=== PATIENT | male | born 1965 | race Caucasian/White ===

== ENCOUNTER 2022-11-25 09:44 | Day surgery (SDC) | payer MEDICARE, MEDICAID, SELFPAY ==
[2022-11-25 11:37] VITALS: BP 154/93; PULSE 58; RESP 16; TEMP 36.6; O2SAT 98; BMI 24.3
--- NOTE | 2022-11-25 11:51 | P.CONAN_ITS ---
[facility] Past Medical History Medical History HLD (hyperlipidemia) HTN (hypertension) Knee ligamentous laxity Macular degeneration Surgical History Surgical History History of tonsillectomy History of Problems with Anesthesia: No Social History Social History Patient Tobacco Use Status: Former Tobacco user Quit Date: 3 yrs ago Use of substances other than those prescribed or required for medical reasons: No Are you DNR?: No Advance Directives: No Advance Directives Information Provided: Yes Meds Allergies Allergy/AdvReac Type Severity Reaction Status Date / Time Penicillins Allergy Unknown Unknown Verified 11/25/22 11:32 Active Medications: Current Medications Sodium Biphosphate/Sodium Phosphate (Sodium Phosphate,Calvert-Dibasic 133 Ml Enema) 133 ml NM ONCE PRN PRN Reason: Poor Colonoscopy Prep Results Home Medications Medication Instructions Recorded Confirmed Last Taken Type atenolol 50 mg tablet 50 mg PO DAILY 11/21/22 11/21/22 11/25/22 08:00 History rosuvastatin 20 mg tablet 20 mg PO DAILY 11/21/22 11/21/22 Unknown History loratadine 10 mg tablet 10 mg PO DAILY 11/22/22 11/22/22 Unknown History Exam Exam Date and Time: November 25, 2022 1151 Height,Weight and Vital Signs: Height 5 ft 7 in Weight 70.307 kg Last Vital Signs Temp 97.8 F 11/25/22 11:37 Pulse 58 11/25/22 11:37 Resp 16 11/25/22 11:37 BP 154/93 H 11/25/22 11:37 Pulse Ox 98 11/25/22 11:37 O2 Del Method Room Air 11/25/22 11:37 Airway Mallampati Class: II (edentulous) TM Dist: >3cm Neck ROM: Full Loose/Missing/Broken Teeth: Yes, Upper and Lower Heart: RRR Lungs: CTA Assessment and Plan Assessment Anesthesia Assessment: Anesthesia Plan Discussed and Chart Reviewed Final Anesthetic Review History of Problems with Anesthesia: No NPO: Yes ASA Class: II Final Preanesthetic Review: Meds/Allgs Chart Reviewed, Consent Obtained/Reviewed and Anes Risks/Benef Reviewed Patient Risk: Low Procedure Risk: Low Anesthetic Plan Anesthetic Plan: MAC: Disposition: Standard PACU
[2022-11-25] MEDS: Lactated Ringers 1,000 ML 50 ML IVCONT (11:53)
[2022-11-25 13:09] VITALS: BP 93/55; PULSE 55; RESP 12; TEMP 36.1; O2SAT 98
--- NOTE | 2022-11-25 13:09 | PM.OP ---
Brief Operative Note Date of Service: 11/25/22 Pre-op diagnosis: Screening Post-op diagnosis: other (Colon polyps) Procedure: Colonoscopy to the cecum with cold snare polypectomy in proximal ascending colon, and hot snare polypectomy x 3. Surgeon: Kain Krishna Anesthesia: MAC Was an [employer] used for this Procedure?: No Estimated blood loss (mL): 2.0 Pathology: other (A. Ascending colon polyps B. Polyp at 60cm C. Polyp at 30cm) Condition: stable Disposition: PACU
[2022-11-25 13:24] VITALS: BP 124/87; PULSE 54; RESP 18; TEMP 36.7; O2SAT 99
--- NOTE | 2022-11-26 01:08 | OP_ITS ---
DATE OF SERVICE: 11/25/2022 SURGEON: Kain Krishna MD INDICATIONS: The patient presents for evaluation of colorectal cancer screening and occasional hematochezia. Full consent has been obtained from him for this, including risks of bleeding and perforation. PREOPERATIVE DIAGNOSIS: POSTOPERATIVE DIAGNOSIS: PROCEDURE PERFORMED: Colonoscopy to the cecum with cold snare polypectomy x 1 and hot snare polypectomy x 3. ESTIMATED BLOOD LOSS: COMPLICATIONS: ANESTHESIA: Preop medication used, monitored anesthesia care. ASSISTANTS: SPECIMENS: PREOPERATIVE DIAGNOSES: Colorectal cancer screening and occasional hematochezia. POSTOPERATIVE DIAGNOSES: Colorectal cancer screening and occasional hematochezia, colon polyps, diverticulosis, and internal hemorrhoids. DESCRIPTION OF PROCEDURE: The patient was placed in the left lateral decubitus position. The digital rectal exam revealed no abnormalities. The Olympus video pediatric colonoscope was entered into the rectum and advanced easily to the cecum. Once in the cecum, I did identify normal-appearing cecal pouch, appendiceal orifice, and a normal-appearing ileocecal valve. The entire cecum and ileocecal valve appeared normal. There was transillumination of light deep in the right lower quadrant. The scope was then slowly withdrawn assessing all mucosal surfaces carefully. Preparation was excellent. In the ascending colon, was an approximately 5 mm polyp, which was removed by cold snare polypectomy and recovered by suction. The polypectomy site appeared clean, without any sign of residual polyp nor significant bleeding. Just distal to this was approximately 10 mm polyp, which was removed by hot snare polypectomy and recovered by suction. This was placed in the same container. The polypectomy site appeared clean, without any sign of residual polyp nor bleeding. At 60 cm, there was an approximately 8 mm polyp, which was removed by hot snare polypectomy and recovered by suction. The polypectomy site appeared clean, without any sign of residual polyp nor bleeding. At 30 cm, there was an approximately 10 mm polyp, which was removed by hot snare polypectomy and recovered by suction. The polypectomy site appeared clean, without any sign of residual polyp nor bleeding. I did not visualize any other polyps, colitis, nor angiodysplasia. There was a mild amount of sigmoid diverticulosis. In the rectum, scope was retroflexed visualizing small internal hemorrhoids, but no other pathology. The rectal mucosa appeared normal. The scope was straightened and withdrawn the patient. He tolerated the procedure well and was returned to the recovery area in stable condition. IMPRESSION: 1. Colon polyps. 2. Diverticulosis. 3. Internal hemorrhoids. PLAN: The results of the pathology will be checked. Given their gross appearance today, I would recommend a repeat colonoscopy in 5 years for further screening purposes. He was advised not to use any aspirin and NSAIDs for 1 week. He will otherwise see me on a p.r.n. basis. MD YESICA Meza/KYREE / [phone] MTDAmina
== END 2022-11-25 14:00 | disposition home or self-care (01) ==
PROVIDERS: PCP Internal Medicine; Visit Provider Internal Medicine
PROC: 0DJD8ZZ Inspection of Lower Intestinal Tract, Via Natural or Artificial Opening Endoscopic (ICD-10-PCS; CPT 45378; principal; 2022-11-25 11:30)
DX: Z12.11 Encounter for screening for malignant neoplasm of colon (principal); D12.2 Benign neoplasm of ascending colon; D12.4 Benign neoplasm of descending colon; D12.5 Benign neoplasm of sigmoid colon; K92.1 Melena; K57.30 Diverticulosis of large intestine without perforation or abscess without bleeding; K64.8 Other hemorrhoids; I10 Essential (primary) hypertension; E78.5 Hyperlipidemia, unspecified; Z79.899 Other long term (current) drug therapy; Z88.0 Allergy status to penicillin
CPT/HCPCS: 45385; 88305

== ENCOUNTER 2023-01-07 11:24 | Outpatient (REF) | payer MEDICARE, MEDICAID, SELFPAY ==
[2023-01-07 15:16] LABS: TSH reflex Free T4 1.23 uIU/mL (0.32-4.0)
== END 2023-01-07 11:25 | disposition home or self-care (01) ==
LOC: HO.CHCLDS 11:24
PROVIDERS: Visit Provider Internal Medicine
DX: Z00.00 Encounter for general adult medical examination without abnormal findings (principal); E78.00 Pure hypercholesterolemia, unspecified
CPT/HCPCS: 36415; 84443

== ENCOUNTER 2023-03-06 10:04 | Outpatient (REF) | payer MEDICARE, MEDICAID, SELFPAY ==
[2023-03-06 14:20] LABS: MANUAL DIFF FLAG NO
[2023-03-06 14:31] LABS: Basophils Absolute Auto 0.1 X10*3/uL (0.0-0.2); Eosinophils Absolute Auto 0.3 X10*3/uL (0.0-0.4); Eosinophils Percent Auto 7.1 % (0-4); Hematocrit 40.1 % (42.0-52.0); Hemoglobin 13.5 g/dl (14.0-18.0); Imm Gran Abs Auto 0.02 X10*3/uL (0.00-0.03); Imm Gran Pct Auto 0.4 % (0.0-0.4); Lymphocytes Absolute Auto 1.7 X10*3/uL (1.2-4.9); Lymphocytes Percent Auto 34.2 % (20-40); Mean Corpuscular HGB Conc 33.7 g/dl (31.0-36.0); Mean Corpuscular Hemoglobin 30.1 pg (27.0-33.0); Mean Corpuscular Volume 89.3 fL (80.0-98.0); Mean Platelet Volume 9.7 fL (9.4-12.4); Monocytes Absolute Auto 0.5 X10*3/uL (0.1-1.2); Monocytes Percent Auto 9.8 % (2-11); Neutrophils Absolute Auto 2.3 x10*3/uL (2.0-8.3); Neutrophils Percent Auto 47.5 % (45-73); Platelet Count 289 X10*3/uL (160-400); Red Blood Count 4.49 X10*6/uL (4.60-5.80); Red Cell Distribution Width 12.8 % (11.0-16.0); White Blood Count 4.8 X10*3/uL (4.8-10.8)
[2023-03-06 15:03] LABS: Alanine Aminotransferase 23 U/L (0-40); Albumin Level 4.3 g/dL (3.5-5.0); Alkaline Phosphatase 72 U/L (39-117); Anion Gap 12 (12-20); Aspartate Amino Transferase 27 U/L (5-37); Bilirubin Direct 0.2 mg/dL (0.0-0.5); Bilirubin Total 0.7 mg/dL (0.0-1.0); Blood Urea Nitrogen 18 mg/dL (9-16); Calcium 9.5 mg/dL (8.4-10.2); Carbon Dioxide 27 mmol/L (22-29); Chloride 105 mmol/L (96-108); Cholesterol 276 mg/dL (<200); Estimated Glomerular Filt Rate > 60; Glucose Fasting 86 mg/dL (60-99); HDL Cholesterol 59 mg/dL (>40); LDL Cholesterol Calculated 197 mg/dL (<100); Potassium 3.6 mmol/L (3.3-5.1); Sodium 140 mmol/L (135-145); Total Protein 7.3 g/dL (6.5-8.0); Triglycerides 101 mg/dL (<150)
== END 2023-03-06 10:05 | disposition home or self-care (01) ==
LOC: HO.CHCLDS 10:04
PROVIDERS: Visit Provider Internal Medicine
DX: Z00.00 Encounter for general adult medical examination without abnormal findings (principal); E78.00 Pure hypercholesterolemia, unspecified; I10 Essential (primary) hypertension
CPT/HCPCS: 36415; 80048; 80061; 80076; 85025

== ENCOUNTER 2023-07-29 10:43 | Outpatient (REF) | payer OTHER, SELFPAY ==
[2023-07-29 14:43] LABS: Cholesterol 154 mg/dL (<200); HDL Cholesterol 58 mg/dL (>40); LDL Cholesterol Calculated 84 mg/dL (<100); Triglycerides 60 mg/dL (<150)
== END 2023-07-29 10:44 | disposition home or self-care (01) ==
LOC: HO.CHCLDS 10:43
PROVIDERS: Visit Provider Internal Medicine
DX: E78.00 Pure hypercholesterolemia, unspecified (principal)
CPT/HCPCS: 36415; 80061

== ENCOUNTER 2023-08-12 14:26 | Outpatient (AMB) | payer MEDICARE, MEDICAID, SELFPAY ==
--- NOTE | 2023-08-12 14:30 | MHC.OFFVIS ---
Intake Visit Reasons: [employer]/PCP referral for raynauds Intake Note: New patient presents for raynauds, [facility] questioning claudication. Patient states he gets cramping in his calfs at night. He gets cold feet and toes that turn white sometimes. When patient go upstairs his legs feel heavy, unable to lift legs. Trips a lot due to being unable to lift his legs up high up. Accompanied by: Self / Same As Patient Allergies Penicillins Allergy (Unknown, Verified 08/12/23 14:35) Unknown HPI HPI [employer]/PCP referral for raynauds: Details: Very complex 58-year-old gentleman presents for evaluation regarding lower extremity pain. He has difficulty ambulating significant distances. Reports that his leg cramping is getting progressively worse. He notes that he does have back pain issues that radiates down to his hip and posterior aspect of his gluts. Also of note he requires the use of a cane for balance. He notes that his knees are an issue for him and his legs do cramp regularly. It is not associated with ambulation he cramps at random times including at night. He has difficulty walking more than a block. He now presents to us for vascular evaluation. [facility] Medical History Knee ligamentous laxity Macular degeneration HLD (hyperlipidemia) HTN (hypertension) Surgical History History of tonsillectomy Social History Patient Tobacco Use Status: Former Tobacco user Quit Date: 3 yrs ago Review of Systems Const All systems reviewed & are unremarkable except as noted in HPI and below Reports no additional complaints ENT Reports Normal hearing present Card Denies chest pain, Denies chest pain at rest, Denies chest pain with activity and Denies pedal edema Resp Denies cough GI Denies abdominal pain Musc Denies abnormal gait, Denies muscle cramps and Denies radiating pain into limb Skin/Breast Denies skin ulcer and Denies wounds Neuro Reports Normal hearing present and Denies abnormal gait Psych Reports no additional complaints Physical Exam Const General: cooperative, healthy appearing and comfortable Orientation/consciousness: oriented to person, oriented to place and oriented to time HEENT Head: Yes normal to inspection Neck Neck: Yes normal visual inspection Carotids: no bruits Chest Chest palpation & inspection: normal inspection of the chest Resp Effort & Inspection: normal respiratory effort and able to speak in complete sentences Auscultation: clear to auscultation bilaterally, no crackles, no rales, no rhonchi and no wheezes Cardio Other: Bilateral DP signals Rate: regular rate Rhythm: regular rhythm Heart sounds: S1 normal heart sound present and S2 normal heart sound present Bruits: no carotid bruits GI Inspection: Yes normal to inspection Skin Wounds: no wounds Hair: normal Neuro General: oriented to person, oriented to place and oriented to time Cranial nerves: Yes CN's II-XII intact bilaterally and Yes Normal hearing present Cognition (Neuro): normal cognition Motor exam (neuro): 5/5 motor strength present throughout Extrem Other: venous exam: No significant superficial varicosities or spider telangiectasias, minimal edema General: No clubbing, No cyanosis and No edema Psych Appearance: grossly normal Mental Status: mental status grossly normal Speech and movement: Normal speech and movement present Assessment & Plan Assessment & Plan (1) PAD (peripheral artery disease): Code(s): I73.9 - Peripheral vascular disease, unspecified Category: Medical Plan: In short patient has lower extremity pain. Unclear etiology of this. I do suspect he does have a significant neurogenic component to this. The lower extremity pulses were slightly diminished. I have taken the liberty of ordering noninvasive arterial testing to rule that out. Should this prove to be negative he may benefit from a pain management or for back evaluation. I do suspect there is a significant neurogenic component of this overall. He will follow up with us after testing. Thank you for allowing us to assist in his care. If there are any questions or concerns please do not hesitate to contact us Orders: Orders US arterial duplex LE BI 1 Week I73.9 - Peripheral vascular disease, unspecified Coding Level of Care Code Est Pt Level 4 (49443) Diagnoses PAD (peripheral artery disease) I73.9
== END 2023-08-12 14:53 | disposition home or self-care (01) ==
PROVIDERS: PCP Internal Medicine; Visit Provider Surgery Vascular Surgery
DX: I73.9 Peripheral vascular disease, unspecified (principal)
CPT/HCPCS: 99213

== ENCOUNTER → 2023-08-12 14:26 | Outpatient (BNVA) | payer OTHER, MEDICAID, SELFPAY | PROVIDERS: PCP Internal Medicine; Visit Provider Surgery Vascular Surgery | DX: I73.9 Peripheral vascular disease, unspecified (principal) | CPT/HCPCS: 99212 ==

== ENCOUNTER 2023-08-21 14:25 | Outpatient (REF) | payer OTHER, SELFPAY ==
--- NOTE | ~2023-08-21 | US_ITS ---
EXAMINATION: US arterial duplex BI w/ NII CLINICAL INFORMATION: Peripheral vascular disease, unspecified COMPARISON: None TECHNIQUE: Ankle pulse volume recordings, ankle pressure measurements and ankle brachial indices were obtained of the lower extremity arterial system bilaterally in addition to duplex Doppler techniques with wave form analysis and measurement of velocities in the common femoral, profunda femoral, superficial femoral, popliteal, tibial and peroneal arteries. The study was performed only at rest. FINDINGS: RIGHT LE. THE RIGHT ANKLE-BRACHIAL INDEX IS: 1.26 2. SEGMENTAL PRESSURES (mmHg): Ankle: PT 134, DP 110 3. PVR WAVEFORMS: Ankle: Abnormal 4. DIRECT DUPLEX: Common femoral artery: 78 cm/s, Multiphasic Profunda femoris artery: 43 cm/s, Multiphasic Superficial femoral artery (proximal): 79 cm/s, Multiphasic Superficial femoral artery (mid): 21 cm/s, Multiphasic Superficial femoral artery (distal): 65 cm/s, Multiphasic Proximal Popliteal artery: 51 cm/s, Multiphasic Distal popliteal artery: 63 cm/s, Multiphasic Mid posterior tibial artery: 99 cm/s, Multiphasic Peroneal artery: 59 cm/s, Multiphasic Anterior tibial artery: 78 cm/sec, multiphasic Dorsalis pedis artery: 20 cm/sec, triphasic LEFT LE. THE LEFT ANKLE-BRACHIAL INDEX IS: 1.21 2. SEGMENTAL PRESSURES: Ankle: PT 128, DP 122 3. PVR WAVEFORMS: Ankle: Normal 4. DIRECT DUPLEX: Common femoral artery: 83 cm/s, Multiphasic Profunda femoris artery: 55 cm/s, Multiphasic Superficial femoral artery (proximal): 61 cm/s, Multiphasic Superficial femoral artery (mid): 85 cm/s, Multiphasic Superficial femoral artery (distal): 63 cm/s, Multiphasic Distal popliteal artery: 25 cm/s, Multiphasic Mid posterior tibial artery: 83 cm/s, Multiphasic Peroneal artery: 56 cm/s, Multiphasic Anterior tibial artery: 44 cm/sec, multiphasic Dorsalis pedis artery: 50 cm/sec, monophasic US/US arterial duplex BI w/ NII IMPRESSION: There is no evidence of any hemodynamically significant lower extremity arterial disease by pressure, waveform or duplex Doppler criteria at rest.
== END 2023-08-21 14:26 | disposition home or self-care (01) ==
LOC: HO.US 14:25
PROVIDERS: PCP Internal Medicine; Visit Provider Surgery Vascular Surgery
DX: I73.9 Peripheral vascular disease, unspecified (principal)
CPT/HCPCS: 93922; 93925

== ENCOUNTER 2023-10-22 14:10 | Outpatient (AMB) | payer OTHER, SELFPAY ==
--- NOTE | 2023-10-22 14:14 | A.OFFVIS_ITS ---
Intake Visit Reasons: f/u s/p ART US 08/21/23 Intake Note: Patient presents for arterial follow up performed on 08/21/23. Patient has pain in both legs. Gets occasional cramping , worse in the right calf. Uses a cane to ambulate and also uses a wheelchair at home. Allergies Penicillins Allergy (Unknown, Verified 10/22/23 14:19) Unknown HPI HPI f/u s/p ART US 08/21/23: Details: Very pleasant 58-year-old gentleman presents for follow-up regarding his lower extremities. He has had difficulty ambulating distances. 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 Has required the use a cane to walk and he has an abnormal gait. Has persistent lower extremity pain as well. He has difficulty walking more than a block. Now presents for evaluation with noninvasive arterial testing. [facility] Medical History Knee ligamentous laxity Macular degeneration HLD (hyperlipidemia) HTN (hypertension) Surgical History History of tonsillectomy Social History Patient Tobacco Use Status: Former Tobacco user Review of Systems Const All systems reviewed & are unremarkable except as noted in HPI and below Reports no additional complaints ENT Reports Normal hearing present Card Denies chest pain, Denies chest pain at rest, Denies chest pain with activity and Denies pedal edema Resp Denies cough GI Denies abdominal pain Musc Denies abnormal gait, Denies muscle cramps and Denies radiating pain into limb Skin/Breast Denies skin ulcer and Denies wounds Neuro Reports Normal hearing present and Denies abnormal gait Psych Reports no additional complaints Physical Exam Const General: cooperative, healthy appearing and comfortable Orientation/consciousness: oriented to person, oriented to place and oriented to time HEENT Head: Yes normal to inspection Neck Neck: Yes normal visual inspection Carotids: no bruits Chest Chest palpation & inspection: normal inspection of the chest Resp Effort & Inspection: normal respiratory effort and able to speak in complete sentences Auscultation: clear to auscultation bilaterally, no crackles, no rales, no rhonchi and no wheezes Cardio Other: Palpable pulses bilaterally. Rate: regular rate Rhythm: regular rhythm Heart sounds: S1 normal heart sound present and S2 normal heart sound present Bruits: no carotid bruits Peripheral pulses: Peripheral pulses 2+ throughout GI Inspection: Yes normal to inspection Skin Wounds: no wounds Hair: normal Neuro General: oriented to person, oriented to place and oriented to time Cranial nerves: Yes CN's II-XII intact bilaterally and Yes Normal hearing present Cognition (Neuro): normal cognition Motor exam (neuro): 5/5 motor strength present throughout Extrem Other: Diminished musculature of the lower extremities. General: No clubbing, No cyanosis and No edema Psych Appearance: grossly normal Mental Status: mental status grossly normal Speech and movement: Normal speech and movement present Results Reviewed Results Reviewed: Noninvasive arterial testing dated 08/21/2023 demonstrates NII on the right of 1.26 and on the left of 1.21 written report and images were reviewed Assessment & Plan Assessment & Plan (1) PAD (peripheral artery disease): Code(s): I73.9 - Peripheral vascular disease, unspecified Category: Medical Plan: In short patient is stable from a vascular standpoint. He does not have any of the risk factors for peripheral vascular disease. Noninvasive testing have spent within normal limits. 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 Should he have persistent pain may benefit from a pain management evaluation. He will follow up with us on an as-needed basis. Thank you for allowing us to assist in his care. If there are any questions or concerns please do not hesitate to contact us. Coding Level of Care Code Est Pt Level 4 (69365) Diagnoses PAD (peripheral artery disease) I73.9
== END 2023-10-22 14:29 | disposition home or self-care (01) ==
PROVIDERS: PCP Internal Medicine; Visit Provider Surgery Vascular Surgery
DX: I73.9 Peripheral vascular disease, unspecified (principal)
CPT/HCPCS: 99214

== ENCOUNTER → 2023-10-22 14:10 | Outpatient (BNVA) | payer OTHER, SELFPAY | PROVIDERS: PCP Internal Medicine; Visit Provider Surgery Vascular Surgery | DX: I73.9 Peripheral vascular disease, unspecified (principal) | CPT/HCPCS: 99212 ==

== ENCOUNTER 2024-09-07 09:51 | Outpatient (REF) | payer OTHER, SELFPAY ==
--- OUTSIDE RECORDS SUMMARY | 2024-09-07 11:06 | XMS_ITS | Clinical Summary ---
Author Organization [employer] Address [address] [facility] [address] [place] [address] Care Team Providers Care Traffic Rate Analyst Name Role Phone Kirstin Winston MD Primary Care Provider [phone] Allergies Active Allergy Reactions Criticality Noted Date Comments Penicillin G Other 12/19/2022 Nausea Medications loratadine (Claritin) 10 MG tabletIndication s:Seasonal allergies TAKE 1 TABLET BY MOUTH EVERY DAY 90 tablet 11/14/19 23 Active rosuvastatin (Crestor) 20 MG tabletIndication s:Hypercholester olemia TAKE 1 TABLET BY MOUTH EVERYDAY AT BEDTIME 90 tablet 07/30/19 24 Active amLODIPine (Norvasc) 5 MG tabletIndication s:Essential hypertension TAKE 1 TABLET BY MOUTH EVERY DAY IN THE MORNING 90 tablet 3 12/10/19 24 Active atenolol (Tenormin) 50 MG tablet TAKE 1 TABLET BY MOUTH EVERY DAY 90 tablet 1 08/18/19 25 Active atenolol (Tenormin) 50 MG tablet TAKE 1 TABLET BY MOUTH EVERY DAY 90 tablet 1 02/20/20 24 025 Discontinued Active Problems Problem Noted Date Diagnosed Date Hypercholesterolemia 03/20/2023 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 Age-related macular degeneration 07/16/2019 Hemorrhage of rectum and anus 12/17/2008 Essential hypertension 12/18/2007 Encounters Date Type Department Care Team Description 08/26/2024 2:45 PM EDT Office Visit [facility] [address] [place] [address] Kirstin Winston MD Tremor (Primary Dx); Other male erectile dysfunction; Abnormal gait; Essential hypertension 08/26/2024 Travel 08/23/2024 Telephone [facility] [address] [place] [address] Kirstin Winston MD Nurse Triage 08/16/2024 Refill [facility] [address] [place] [address] Kirstin Winston MD from Last 3 Months Family History Medical History Relation Name Comments parkinson disease Mother Relation Name Status Comments Mother Social History Tobacco Use Types Packs/Day Years Used Date Smoking Tobacco: Former Cigarettes Q uit: 2019 Smokeless Tobacco: Never Tobacco Cessation:Counseling Given: Not Answered Depression Answer Date Recorded Patient Health Questionnaire-9 Score 5 10/06/2023 Patient Health Questionnaire-9 Score 5 10/06/2023 Last PHQ-9: Questionnaire Data Not on file 0 10/06/2023 Housing Stability Answer Date Recorded What is your housing situation today? I have rosa ghotra 01/24/[address] you li ve. Do you have problems with any of the following? None of the above 01/24/2023 Food Insecurity Answer Date Recorded Within the past 12 months, y ou worried that your food would run out before you got money to buy more: Often true 01/27/2023 Within the past 12 months,th e food you bought just didn't last and you didn't have enough money to get more: Often true Transportation Answer Date Recorded In the past 12 months, has l ack of transportation kept you from medical appts, meetings, work or from getting things needed for daily living? No 01/24/2023 Utilities Answer Date Recorded In the past 12 months, has t he electric, gas, oil or water company threatened to shut off services in your home? No 01/24/2023 Depression Answer Date Recorded Patient Health Questionnaire-2 Score 0 10/06/2023 Sex and Gender Information Value Date Recorded Sex Assigned at Male 02/04/2022 10:22 AM EDT Legal Sex Male 10:22 AM EDT Gender Identity Male 02/04/2022 10:22 AM EDT Sexual Orientation Straight 02/04/2022 10 :22 AM EDT Last Filed Vital Signs Vital Sign Reading Time Taken Comments Blood Pressure 170/86 08/26/2024 2:53 PM EDT Pulse 66 08/26/2024 2:53 PM EDT Temperature 36.8 ??C (98.2 ??F) 08/26/2024 2:53 PM ED T Respiratory Rate 20 08/26/2024 2:53 PM EDT Oxygen Saturation 98% 08/26/2024 2:53 PM EDT Inhaled Oxygen Concentration - - Weight 65.8 kg (145 lb) 08/26/2024 2:53 PM EDT Height 165.4 cm (5' 5.13 ) 08/26/2024 2:53 PM ED T Body Mass Index 24.03 08/26/2024 2:53 PM EDT Plan of Treatment Upcoming Encounters Date Type Department Care Team (Late st Contact Info) Description 10/07/2024 2:00 PM EDT Clinical Support [facility] [address] [place], [place] [id number] 11/08/2024 2:30 PM EDT Office Visit [facility] [address] [place], [place] [phone] Tarka, Kera, OD [address] [place], [place] [phone] Health Maintenance Due Date Last Done Comments CT Colonography 1967 FIT DNA/Cologuard 1967 FIT 1967 FOBT 1967 Sigmoidoscopy 1967 Disability Screening 1967 Alcohol/Substance Use Screening 1979 Zoster Vaccines (1 of 2) 07/02/2017 COVID-19 Vaccine (1 - 2023-2 5 season) 2023 SDOH Screening 01/28/2024 01/27/2023 Depression Screening 10/05/2024 10/06/2023, 10/06/2023 Hepatitis B Vaccines (1 of 3 - 19+ 3-dose series) 10/05/2024 Postponed from 07/02/1986 (Patient Refused) Tobacco Screening 10/05/2024 10/06/2023 Influenza Vaccine (Season Ended) 2024 Pneumococcal Vaccine: 50+ Years (1 of 1 - PCV) 08/26/2025 Postponed from 07/02/2017 (Patient Refused) Colonoscopy 11/26/2027 11/25/2022 Colorectal Cancer Screening 11/26/2027 Lipid Panel 07/28/2028 07/29/2023, 03/06/2023, 11/23/2021 DTaP/Tdap/Td Vaccines (2 - T d or Tdap) 10/31/2031 10/30/2021 RSV Patients and Patients Aged 60 years or older (1 - 1-dose 75+ series) 07/02/2042 Hepatitis C Screening Discontinued 11/23/2021 HIB Vaccines Aged Out No longer eligi ble based on patient's age to complete this topic HIV Screening Discontinued HPV Vaccines Aged Out No longer eligi ble based on patient's age to complete this topic Hepatitis A Vaccines Aged Out No long er eligible based on patient's age to complete this topic IPV Vaccines Aged Out No longer eligi ble based on patient's age to complete this topic Meningococcal B Vaccine Aged Out No l onger eligible based on patient's age to complete this topic Meningococcal Vaccine Aged Out No fadumo ashley eligible based on patient's age to complete this topic RSV under 20 months Aged Out No longe r eligible based on patient's age to complete this topic Rotavirus Vaccines Aged Out No longer eligible based on patient's age to complete this topic Procedures Procedure Name Priority Date/Time Associated Diagnosis Comments LIPID PANEL, STANDARD Routine 07/29/2023 10:47 AM EDT Hypercholesterolemi a COLONOSCOPY Routine 11/25/2022 ZZZ HISTORICAL HEPATITIS C AB W/REFL TO HCV RNA, QN, PCR Routine 11/23/2021 10:55 AM EDT from Last 3 Months or Most Recently Relevant to Health Maintenance Results * Lipid Panel, Standard (07/29/2023 10:47 AM EDT) Triglycerides 60 <150 mg/dL [facility] Comment:Desirable Triglyceri de: less than 150 mg/dLBorderline High Triglyceride 150-199 mg/dLHigh Triglyceride: 200-499 mg/dLVery High Triglyceride: greater than or equal to 5OO mg/dL Cholesterol 154 <200 mg/dL [facility] Comment:Desirable Cholestero l: less than 200 mg/dLBorderline High Cholesterol: 200-239 mg/dLHigh Cholesterol: greater than 239 mg/dL LDL Cholesterol Calculated 84 <100 mg/dL [facility] Comment:Desirable LDL: less than 100 mg/dLNear Optimal/Above Optimal LDL: 110- 129 mg/dLBorderline High LDL: 130-159 mg/dLHigh LDL: 160-189 mg/dLVery High LDL: greater than or equal to 190 mg/dL HDL Cholesterol 58 >40 mg/dL [facility] Comment:Desirable HDL: great er than 40 mg/dL Note: This HDL assay may give artificially low results in patients with liver disease. Blood Venous blood specimen / Unknown 07/29/2023 10:47 AM EDT 07/29/2023 2:17 PM EDT us Kirstin Winston MD LAB BLOOD ORDERABLES Final Result Performing Organization Address City/[facility]/ZIP Co de Phone Number [facility] [address] [place] [phone] * HEPATITIS C AB W/REFL TO HCV RNA, QN, PCR (11/23/2021 10:55 AM EDT) HEPATITIS C ANTIBODY NON-REACT ANGELITA NON-REACT ANGELITA [facility] INDEX 0.10 <1.00 [facility] Comment: ?? HCV antibody was non-reactive. There is no laboratory ?? evidence of HCV infection. ?? In most cases, no further action is required. However, if recent HCV exposure is suspected, a test for HCV RNA (test code 61258) is suggested. ?? For additional information please refer to http://education.[facility].LABOMAR/faq/WAY49c4 (This link is being provided for informational/ educational purposes only.) ?? 11/23/2021 10:5 5 AM EDT us Kirstin Winston MD HISTORICAL/NON ORDERABLE LA BS Final Result Performing Organization Address City/[facility]/ZIP Co de Phone Number [facility] [address] from Last 3 Months or Most Recently Relevant to Health Maintenance Insurance [facility] < [address] [id number] Care Teams Traffic Rate Analyst Relationship Specialty Start Date End Date Kirstin Winston MD [address] [place] [id number] PCP - General Internal Medicine 12/18/11
[2024-09-07 15:57] LABS: PSA,Total (Free>4and<10) 1.36 ng/mL (0.00-4.00)
[2024-09-07 16:58] LABS: Alanine Aminotransferase 35 U/L (0-40); Albumin Level 4.6 g/dL (3.5-5.0); Anion Gap 12 (12-20); Aspartate Amino Transferase 39 U/L (5-37); Bilirubin Total 1.1 mg/dL (0.0-1.0); Blood Urea Nitrogen 25 mg/dL (9-16); Calcium 9.5 mg/dL (8.4-10.2); Carbon Dioxide 25 mmol/L (22-29); Chloride 108 mmol/L (96-108); Estimated Glomerular Filt Rate > 60; Glucose Random 93 mg/dL (60-115); Potassium 3.9 mmol/L (3.3-5.1); Sodium 141 mmol/L (135-145); Total Protein 7.2 g/dL (6.5-8.0)
[2024-09-07 17:06] LABS: TSH reflex Free T4 0.76 uIU/mL (0.32-4.0)
[2024-09-07 17:13] LABS: Alkaline Phosphatase 83 U/L (39-117)
[2024-09-08 05:28] LABS: Follicle Stimulating Hormone 58.5 mIU/mL (1.4-12.8); Lutenizing Hormone 22.5 mIU/mL (1.5-9.3)
[2024-09-11 15:33] LABS: Testosterone, Total 304 ng/dL (250-1100)
== END 2024-09-07 09:52 | disposition home or self-care (01) ==
LOC: HO.CHCLDS 09:51
PROVIDERS: Visit Provider Internal Medicine
DX: R25.1 Tremor, unspecified (principal); N52.8 Other male erectile dysfunction; Z12.5 Encounter for screening for malignant neoplasm of prostate
CPT/HCPCS: 36415; 80053; 83001; 83002; 84153; 84403; 84443

== ENCOUNTER 2024-09-28 13:50 | Outpatient (REF) | payer OTHER, SELFPAY ==
[2024-09-28 16:27] LABS: INTERNATIONAL NORM RATIO 0.9 (0.9-1.1); Prothrombin Time 10.2 SEC (10.9-12.4)
[2024-09-28 16:37] LABS: Iron 164 mcg/dL (45-160); Percent Iron Saturation 47 % (15-50); Total Iron Binding Capacity 347 mcg/dL (228-428); Unsaturated Iron Binding 183 ug/dL
[2024-09-28 16:52] LABS: Ferritin 94 ng/mL (20-250)
[2024-09-30 12:18] LABS: IgA 189 mg/dL (47-310); IgG 1112 mg/dL (600-1640); IgM 85 mg/dL (50-300)
[2024-10-02 21:38] LABS: Testosterone, Free 39.9 pg/mL (35.0-155.0); Testosterone, Total 324 ng/dL (250-1100)
== END 2024-09-28 13:51 | disposition home or self-care (01) ==
LOC: HO.HHCL 13:50
PROVIDERS: PCP Internal Medicine; Visit Provider Internal Medicine
DX: N52.8 Other male erectile dysfunction (principal); R74.01 Elevation of levels of liver transaminase levels
CPT/HCPCS: 36415; 82728; 82784; 83540; 84402; 84403; 85610

== ENCOUNTER 2024-10-12 15:13 | Outpatient (AMB) | payer OTHER, SELFPAY ==
[2024-10-12 15:20] VITALS: BP 142/74; PULSE 68; O2SAT 96; BMI 23.9
--- NOTE | 2024-10-12 15:20 | A.OFFVIS_ITS ---
Vital Signs 10/12/24 15:20 Height 5 ft 4.13 in Weight 139 lb 8.842 oz BMI 23.9 BP 142/74 H Blood Pressure Location Rt brachial Position Sitting Pulse 68 Pulse Source Pulse Oximeter Pulse Oximetry (%) 96 Oxygen Delivery Method Room Air Intake Visit Reasons: Hypogonadism Intake Note: New patient externally referred by PCP for Hypogonadism. Pneumatic Tube Repairer Required: No Accompanied by: Self / Same As Patient Allergies Penicillins Allergy (Unknown, Verified 10/12/24 15:22) Unknown Medication List - Last Reconciled 10/12/24 by Kain Duran MD atenolol 50 mg PO DAILY loratadine 10 mg PO DAILY rosuvastatin 20 mg PO DAILY HPI Comments Details: The patient is a 59-year-old male presenting with low testosterone levels and associated symptoms. The patient reports being diagnosed with low testosterone levels approximately a year ago, without prior endocrinology consultation or testosterone therapy initiation. He experiences erectile dysfunction, particularly noting the absence of morning erections, but maintains some erectile function otherwise. He reports urinary incontinence, describing urgency and incomplete voiding. Additionally, he has observed testicular atrophy and decreased ejaculate volume over time. The patient has noted gynecomastia, with soreness in the left nipple but no discharge. He has a history of prostate enlargement, though recent examination did not reveal significant enlargement or hardness. There is a suspicion of Klinefelter syndrome due to elevated LH and FSH levels, with a karyotype test planned for confirmation. The patient has a history of osteoporosis and neurological issues affecting the cerebellum, contributing to his mobility challenges. First diagnosed with Hypogonadism 1 yr ago Not Was started on Testosterone supplementation Not Currently using [testosterone]. Currently not achieving spontaneous am erections, and able to achieve erection when desired. Reports low libido. Decreased facial hair and shaving frequency. notices decrease in size or shape of testicles. Denies penile discharge or scrotal tenderness. Denies any history of mumps orchitis. Denies any head trauma. Denies history of ANDER. Not with no children not conceiving Sense of smell intact. Denies headache or visual changes, +gynecomastia with some tenderness - galactorrhea. Denies orthostatic symptoms, weight loss. Denies change in size of hands or feet. Denies hair loss, weight gain, cold intolerance. No History of DVT or PE: No history of marijuana or opoids or recent methadone use Some urgency on urination Labs: Testosterone level 324 with elevation and LH and FSH PSA CBC PFSH Medical History (Updated 10/12/24 @ 15:23 by Kain Duran MD) Primary testicular hypogonadism Knee ligamentous laxity Macular degeneration HLD (hyperlipidemia) HTN (hypertension) Surgical History (Updated 10/12/24 @ 15:22 by BORA Melton) Hx of colonoscopy with polypectomy History of tonsillectomy Family History (Updated 10/12/24 @ 15:25 by BORA Melton) Mother Parkinsons disease H/O: hysterectomy Social History Alcohol intake: current Patient Tobacco Use Status: Former Tobacco user Physical Exam Const Other: There was the absence of eunichoidal proportions. Examination of the chest reveals minimal amount of breast tissue. Rectal examination reveals a normal smooth prostate. Thyroid gland is normal size weighs about 15 g per there were no thyroid nodules palpated Assessment & Plan Assessment & Plan (1) Primary testicular hypogonadism: Code(s): E29.1 - Testicular hypofunction Category: Medical Plan: 1. Hypogonadism The patient presents with symptoms consistent with hypogonadism, including low testosterone levels, erectile dysfunction, and testicular atrophy. A trial of testosterone replacement therapy is considered, with options including gel application due to the patient's difficulty with injections. Monitoring of testosterone levels and prostate health is advised. Went over side effects of testosterone replacement including but not limited to risk of DVT, prostatic enlargement, unmasking of prostate cancer and polycythemia 2. Possible Klinefelter syndrome Elevated LH and FSH levels suggest primary testicular failure, raising suspicion for Klinefelter syndrome. A karyotype test is planned to confirm the diagnosis. The patient is informed about the potential implications, including infertility and increased risk of diabetes. 3. Prostate enlargement The patient has a history of prostate enlargement, but recent examination shows no significant enlargement or hardness. Monitoring of prostate-specific antigen PSA) levels is recommended, especially if testosterone therapy is initiated. I discussed with the patient the potential diagnosis of hypogonadism and the option of testosterone replacement therapy, emphasizing the benefits and risks, including the potential for improved energy and libido but also the risk of prostate enlargement and blood clots. We also discussed the suspicion of Klinefelter syndrome and the need for a karyotype test to confirm the diagnosis. I explained the implications of Klinefelter syndrome, including infertility and increased risk of diabetes. The patient was informed about the importance of mo nitoring prostate health and bone density, especially if testosterone therapy is initiated. We reviewed the application of testosterone gel and the need for follow-up testing to monitor testosterone levels and PSA. - Apply testosterone gel to upper arms and shoulders daily as instructed. - Monitor for any changes in symptoms, such as increased energy or changes in libido. - Schedule follow-up appointments for repeat testosterone and PSA testing. - . The patient had an opportunity to ask questions regarding treatment plan. The patient expressed understanding and agreement with the above treatment plan. Patient was informed and verbally consented to the use of an ambient scribe for clinic note documentation during this visit. Orders: Orders Testosterone, Free/Total 6 Weeks E29.1 - Testicular hypofunction Hemoglobin 6 Weeks E29.1 - Testicular hypofunction Prostate Specific Antigen 6 Weeks E29.1 - Testicular hypofunction Hematocrit 6 Weeks E29.1 - Testicular hypofunction Chromosome Anal. Blood Genetic 6 Weeks E29.1 - Testicular hypofunction Medications: New testosterone (AndroGel) apply 1 pump amount over max area of EACH upper arm and shoulder 2 pumps topical DAILY 75 grams 3RF Coding Level of Care Code New Pt Level 4 (45289) Diagnoses Primary testicular hypogonadism E29.1
--- OUTSIDE RECORDS SUMMARY | 2024-10-12 15:50 | XMS_ITS | Patient Health Record ---
Author Organization [facility] Address [address] [place] [address] Care Team Providers Care Apparatus Cleaner Name Role Phone Kirstin Winston M.D. Primary Care Provider Un available Krishna Kain Unavailable [phone] Allergies Allergen (clinical drug ingredient) Drug/Non Drug Allergy documented on EMR Reaction Allergy Type Onset Date Status Penicillin Unknown Drug Allergy Active Reason For Referral No Information Medications Medication SIG (Take, Route, Frequency, Duration) Notes Start Date End Date Status Loratadine 10 MG TAKE 1 TABLET BY DENIA TH EVERY DAY Oral for 90 Active Baclofen 5 MG TAKE 1 TABLET BY DENIA TH TWICE A DAY Oral for 90 Active Atenolol 50 MG Oral for 90 Act mia Rosuvastatin Calcium 20 MG Oral for 90 Active Vitamin D3 Active Dulcolax (colon prep) 5 MG take at 3:00 p.m and 7:00p.m. Orally two tablets twice a day for one day for 1 day 09/10/2022 Active MiraLax (colon prep) 17 GM/SCOOP 1 238Gm bottle mixed with Gatorade or Crystal Light Orally begin at 5:00 p.m. the day before the procedure for 1 day 09/10/2022 Active Problems Problem Type SNOMED Code ICD Code Onset Dates Problem Status W/U Status Risk Notes Problem 097109194 Colon cancer screening (Z12.11) Active confirmed Problem 600668941 Blood in stool (K92.1) Active confirmed Problem [id number] Pre-procedural examination (Z01.818) Active confirmed Problem Diverticulosis of colon (877714823) Diverticulosis of colon (K57.30) Active confirmed Plan Of Treatment Future Test Test Name Order Date COLONOSCOPY 09/10/2022 Insurance Providers Payer Name Payer Address Payer Phone Subscriber Number Group Number Insured Name Patient Relationship to Insured Coverage Start Date Coverage End Date MEDICARE OF [place] [address] [place] [id number] [phone] [id number] SHEILA ATKINS Self - patient is the insured MEDICAID OF [facility] [address] [place] [address] [id number] SHEILA ATKINS Self - patient is the insured Medical (General) History Medical History History ICD Code Hypertension Hyperlipidemia Denies [place],DM,CVA,Lung disease,renal dise ase 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 Macular degeneration Surgical History Surgery Date(Month/Year) Tonsils
--- OUTSIDE RECORDS SUMMARY | 2024-10-12 15:50 | XMS_ITS | Clinical Summary ---
Author Organization [employer] Address [address] [facility] [address] [place] [address] Care Team Providers Care Sleeve Baster Name Role Phone Kirstin Winston MD Primary Care Provider [phone] Allergies Active Allergy Reactions Criticality Noted Date Comments Penicillin G Other 12/19/2022 Nausea Medications loratadine (Claritin) 10 MG tabletIndications :Seasonal allergies TAKE 1 TABLET BY MOUTH EVERY DAY 90 tablet 3 Active rosuvastatin (Crestor) 20 MG tabletIndications :Hypercholesterol emia TAKE 1 TABLET BY MOUTH EVERYDAY AT BEDTIME 90 tablet 4 Active amLODIPine (Norvasc) 5 MG tabletIndications :Essential hypertension TAKE 1 TABLET BY MOUTH EVERY DAY IN THE MORNING 90 tablet 3 4 Active atenolol (Tenormin) 50 MG tablet TAKE 1 TABLET BY MOUTH EVERY DAY 90 tablet 1 5 Active Active Problems Problem Noted Date Diagnosed Date Hypercholesterolemia 03/20/2023 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 Age-related macular degeneration 07/16/2019 Hemorrhage of rectum and anus 12/17/2008 Essential hypertension 12/18/2007 Encounters Date Type Department Care Team Description 10/07/2024 2:00 PM EDT Clinical Support [facility] [address] [place] [id number] Celia Rdz RN Essential hypertension [I10] 10/07/2024 Travel 10/04/2024 Results Follow-Up [facility] [address] [place] [phone] Kirstin Winston MD Testosterone, Free (Dialysis) And Total, MS 09/13/2024 Orders Only [facility] [address] [place] [address] Kirstin Winston MD Other male erectile dysfunction (Primary Dx) 09/08/2024 Results Follow-Up [facility] [address] [place] [address] Lorie Chang, JAS TSH W/Reflex to FT4, Comprehensive Metabolic Panel, FSH, Additional followed-up results: 2 09/08/2024 Orders Only [facility] [address] [place] [address] Kirstin Winston MD Transaminitis (Primary Dx); Testicular atrophy; Primary hypogonadism in male 08/26/2024 2:45 PM EDT Office Visit [facility] [address] [place] [address] Kirstin Winston MD Tremor (Primary Dx); Other male erectile dysfunction; Abnormal gait; Essential hypertension 08/26/2024 Travel 08/23/2024 Telephone [facility] [address] [place] [address] Kirstin Winston MD Nurse Triage 08/16/2024 Refill [facility] [address] [place] [address] Kirstin Winston MD from Last 3 Months [...] the past 12 months, has t he [employer] gas, oil or water company threatened to [...] Sign Reading Time Taken Comments Blood Pressure 150/84 10/07/2024 4:30 PM EDT Pulse 72 10/07/2024 4:29 PM EDT Temperature 36.8 C (98.2 F) 08/26/2024 2:53 PM EDT Respiratory Rate 20 08/26/2024 2:53 PM EDT Oxygen Saturation 98% 08/26/2024 2:53 PM EDT Inhaled Oxygen Concentration - - Weight 65.8 kg (145 lb) 08/26/2024 2:53 PM EDT Height 165.4 cm (5' 5.13 ) 08/26/2024 2:53 PM ED T Body Mass Index 24.03 08/26/2024 2:53 PM EDT Plan of Treatment Upcoming Encounters Date Type Department Care Team (Late st Contact Info) Description 10/21/2024 11:15 AM EDT Office Visit [facility] [address] [place] [address] Kirstin Winston MD [address] [place] [address] 11/08/2024 2:30 PM EDT Office Visit [facility] [address] [place] [address] Kera Reyna, OD [address] [place] [address] Health Maintenance Due Date Last Done Comments CT Colonography 1967 FIT DNA/Cologuard 1967 FIT 1967 FOBT 1967 Sigmoidoscopy 1967 Disability Screening 1967 Alcohol/Substance Use Screening 1979 Hepatitis B Vaccines (1 of 3 - 19+ 3-dose series) 07/02/1986 Zoster Vaccines (1 of 2) 07/02/2017 COVID-19 Vaccine ( - 2023-2 5 season) 2023 SDOH Screening 01/28/2024 01/27/2023 Depression Screening 10/05/2024 10/06/2023, 10/06/2023 Tobacco Screening 10/05/2024 10/06/2023 Influenza Vaccine (#1) 2024 Pneumococcal Vaccine: 50+ Years (1 of [...] Procedure Name Priority Date/Time Associated Diagnosis Comments TESTOSTERONE, FREE (DIALYSIS) AND TOTAL,MS Routine 09/28/2024 1:57 PM EDT Other male erectile dysfunction IRON AND TOTAL IRON BINDING CAPACITY Routine 09/28/2024 1:57 PM EDT Transaminitis FERRITIN Routine 09/28/2024 1:57 PM EDT Transaminitis PROTHROMBIN TIME-INR Routine 09/28/2024 1:57 PM EDT Transaminitis IMMUNOGLOBULINS, QUANTITATIVE, IGA, IGG, IGM Routine 09/28/2024 1:57 PM EDT Transaminitis PSA, TOTAL WITH REFLEX TO PSA, FREE Routine 09/07/2024 9:53 AM EDT Other male erectile dysfunction LH Routine 09/07/2024 9:53 AM EDT Other male erectile dysfunction FSH Routine 09/07/2024 9:53 AM EDT Other male erectile dysfunction TESTOSTERONE, TOTAL, MALES (ADULT), IA Routine 09/07/2024 9:53 AM EDT Other male erectile dysfunction COMPREHENSIVE METABOLIC PANEL Routine 09/07/2024 9:53 AM EDT Tremor TSH W/REFLEX TO FT4 Routine 09/07/2024 9 :53 AM EDT Tremor LIPID PANEL, STANDARD Routine 07/29/2023 10:47 AM EDT Hypercholesterolemi a COLONOSCOPY Routine 11/25/2022 ZZZ HISTORICAL HEPATITIS C AB W/REFL TO HCV RNA, QN, PCR Routine 11/23/2021 10:55 AM EDT from Last 3 Months or Most Recently Relevant to Health Maintenance Results * (ABNORMAL) Iron And Total Iron Binding Capacity (09/28/2024 1:57 PM EDT) Iron 164(H) 45 - 160 mcg/dL [facility] Total Iron Binding Capacity 347 228 - 428 mcg/dL [facility] Percent Iron Saturation 47 15 - 50 % [facility] Unsaturated Iron Binding 183 ug/dL [facility] Blood Venous blood specimen / Unknown 09/28/2024 1:57 PM EDT 09/28/2024 4:10 PM EDT us Kirstin Winston MD LAB BLOOD ORDERABLES Final Result Performing Organization Address [facility] Co de Phone Number [facility] [address] [place] [phone] * (ABNORMAL) Prothrombin Time-INR (09/28/2024 1:57 PM EDT) Prothrombin Time 10.2(L) 10.9 - 12.4 SEC [facility] INTERNATIONAL NORM RATIO 0.9 0.9 - 1.1 [facility] Comment:INTERNATIONAL NORMAL IZED RATIO (INR) REFERENCE RANGES Reference RangeFor patients not on anticoagulant therapy: 0.9 - 1.1INR ranges for oral anticoagulanttherapy:For prevention and treatment of venous thrombosis and pulmonary embolism: 2.0 - 3.0For acute myocardial infarction with aspirin therapy: 2.0 - 3.0For acute myocardial infarction without aspirin therapy: 3.0 - 4.0For patients with mechanical prosthetic heart valves: 2.5 - 3.5 Blood Venous blood specimen / Unknown 09/28/2024 1:57 PM EDT 09/28/2024 4:10 PM EDT us Kirstin Winston MD LAB BLOOD ORDERABLES Final Result Performing Organization Address [facility]/ZIP Co de Phone Number [facility] [address] [place] [phone] * Testosterone, Free (Dialysis) And Total, MS (09/28/2024 1:57 PM EDT) Testosterone, Total 324 250 - 1100 ng/dL [facility] Comment:For additional infor karis, please refer tohttp://education.PeerIndex/faq/YcvhkFqyemdfwozawHTBAKTNMC461(This link is being provided for informational/educational purposes only.)This test was developed and its analytical performancecharacteristics have been determined by [facility] [place]. It hasnot been cleared or approved by the U.S. Food and DrugAdministration. This assay has been validated pursuantto the CLIA regulations and is used for clinicalpurposes. Testosterone, Free 39.9 35.0 - 155.0 pg/mL [facility] Comment:This test was develo ped and its analytical performancecharacteristics have been determined by [employer] [place], [place]. It hasnot been cleared or approved by the U.S. Food and DrugAdministration. This assay has been validated pursuantto the CLIA regulations and is used for clinicalpurposes.THIS TEST WAS PERFORMED AT:[email or web address] [place] [address]NYNHYQQKATHERINE VOGT MD,PHD Blood Venous blood specimen / Unknown 09/28/2024 1:57 PM EDT 09/28/2024 4:10 PM EDT us Kirstin Winston MD LAB BLOOD ORDERABLES Final Result [facility] [address] [place] [address] [phone] * Immunoglobulins, Quantitative, IgA, IgG, IgM (09/28/2024 1:57 PM EDT) IMMUNOGLOBULIN G 1112 600 - 1640 mg/dL [facility] IMMUNOGLOBULIN A 189 47 - 310 mg/dL [facility] Immunoglobulin M 85 50 - 300 mg/dL [facility] Comment:THIS TEST WAS PERFOR MED AT:[email or web address] [place] [phone] CEE MD Blood Venous blood specimen / Unknown 09/28/2024 1:57 PM EDT 09/28/2024 4:10 PM EDT us Kirstin Winston MD LAB BLOOD ORDERABLES Final Result Performing Organization Address City/[facility]/ZIP Co de Phone Number [facility] [address] [place] [phone] * Ferritin (09/28/2024 1:57 PM EDT) Pathologist [facility] Ferritin 94 20 - 250 ng/mL [facility] Blood Venous blood specimen / Unknown 09/28/2024 1:57 PM EDT 09/28/2024 4:10 PM EDT us Kirstin Winston MD LAB BLOOD ORDERABLES Final Result Performing Organization Address [facility] Co de Phone Number [facility] [address] [place] [phone] * TSH W/Reflex to FT4 (09/07/2024 9:53 AM EDT) Pathologist [facility] TSH reflex Free T4 0.76 0.32 - 4.0 uIU/mL [facility] Blood Venous blood specimen / Unknown 09/07/2024 9:53 AM EDT 09/07/2024 2:45 PM EDT us iKrstin Winston MD LAB BLOOD ORDERABLES Final Result Performing Organization Address [facility] Co de Phone Number [facility] [address] [place] [phone] * PSA, Total With Reflex to PSA, Free (09/07/2024 9:53 AM EDT) PSA,Total (Free>4and<10) 1.36 0.00 - 4.00 ng/mL [facility] Comment:A Free PSA was not p erformed: The percentage of Free PSA can be used to enhance the differentiation of prostate cancer from benign prostatic disease in subjects whose PSA levels are between 4.0 and 10.0 ng/mL. For subjects whose PSA levels are below 4.0 or above 10.0 ng/mL, the risk of prostate cancer is determined on the basis of the PSA alone. Therefore the % Free PSA is recommended only for those subjects whose PSA levels are between 4.0 and 10.0 ng/mL.PSA methodology: Michel Alinity i ChemiluminescentMicroparticle Immunoassay (CMIA) 09/07/2024 9:53 AM EDT 09/07/2024 2:45 PM EDT us Kirstin Winston MD LAB BLOOD ORDERABLES Final Result [facility] [address] [place] [phone] * Testosterone, Total, males (Adult), IA (09/07/2024 9:53 AM EDT) Testosterone, Total 304 250 - 1100 ng/dL [facility] Comment:For additional infor karis, please refer tohttp://education.xaitment.ActivNetworks/faq/YggqtVvoxwpembklxMLFBTNRYU122(This link is being provided for informational/educational purposes only.)This test was developed and its analytical performancecharacteristics have been determined by [employer] [place], [place]. It hasnot been cleared or approved by the U.S. Food and DrugAdministration. This assay has been validated pursuantto the CLIA regulations and is used for clinicalpurposes.THIS TEST WAS PERFORMED AT:[facility] [email or web address] [place] [address]ZCRKBPWKATHERINE VOGT MD,PHD Blood Venous blood specimen / Unknown 09/07/2024 9:53 AM EDT 09/07/2024 2:45 PM EDT us Kirstin Winston MD LAB BLOOD ORDERABLES Final Result Performing Organization Address [facility]/ZIP Co de Phone Number [facility] [address] [place] [phone] * (ABNORMAL) LH (09/07/2024 9:53 AM EDT) Lutenizing Hormone 22.5(A) 1.5 - 9.3 mIU/mL [facility] Comment:THIS TEST WAS PERFOR MED AT:[email or web address] [place] [address]XIZDBANGELO CEE MD Blood Venous blood specimen / Unknown 09/07/2024 9:53 AM EDT 09/07/2024 2:45 PM EDT us Kirstin Winston MD LAB BLOOD ORDERABLES Final Result Performing Organization Address [facility] Co de Phone Number [facility] [address] [place] [phone] * (ABNORMAL) FSH (09/07/2024 9:53 AM EDT) Follicle Stimulating Hormone 58.5(A) 1.4 - 12.8 mIU/mL [facility] Comment:THIS TEST WAS PERFOR MED AT:[facility] [id number] [place] [address]MVFVDALDAIR CEE MD Blood Venous blood specimen / Unknown 09/07/2024 9:53 AM EDT 09/07/2024 2:45 PM EDT us Kirstin Winston MD LAB BLOOD ORDERABLES Final Result Performing Organization Address [facility] Co de Phone Number [facility] [address] [place] [phone] * (ABNORMAL) Comprehensive Metabolic Panel (09/07/2024 9:53 AM EDT) Sodium 141 135 - 145 mmol/L [facility] Potassium 3.9 3.3 - 5.1 mmol/L [facility] Chloride 108 96 - 108 mmol/L [facility] Carbon Dioxide 25 22 - 29 mmol/L [facility] Anion Gap 12 12 - 20 [facility] Urea Nitrogen (BUN) 25(H) 9 - 16 mg/dL [facility] Creatinine, Serum 0.84 0.5 - 1.4 mg/dL [facility] Estimated Glomerular Filt Rate >60 [facility] Comment:Chronic Kidney Disea se: Estimated GFR < 60 mL/min/1.51u5Ziidqe Kidney Disease: Estimated GFR < 15 mL/min/1.73m2 Glucose 93 60 - 115 mg/dL [facility] Calcium 9.5 8.4 - 10.2 mg/dL [facility] Bilirubin, Total 1.1(H) 0.0 - 1.0 mg/dL [facility] Aspartate Amino Transferase 39(H) 5 - 37 U/L [facility] Alanine Aminotransferase 35 0 - 40 U/L [facility] Total Protein 7.2 6.5 - 8.0 g/dL [facility] Albumin Level 4.6 3.5 - 5.0 g/dL [facility] Alkaline Phosphatase 83 39 - 117 U/L [facility] Blood Venous blood specimen / Unknown 09/07/2024 9:53 AM EDT 09/07/2024 2:45 PM EDT us Kirstin Winston MD LAB BLOOD ORDERABLES Final Result [facility] [address] [place] [phone] * Lipid Panel, Standard (07/29/2023 10:47 AM EDT) Triglycerides 60 <150 mg/dL [facility] Comment:Desirable Triglyceri de: less than 150 mg/dLBorderline High Triglyceride 150-199 mg/dLHigh Triglyceride: 200-499 mg/dLVery High Triglyceride: greater than or equal to 5OO mg/dL Cholesterol 154 <200 mg/dL [facility] Comment:Desirable Cholestero l: less than 200 mg/dLBorderline High Cholesterol: 200-239 mg/dLHigh Cholesterol: greater than 239 mg/dL LDL Cholesterol Calculated 84 <100 mg/dL [facility] Comment:Desirable LDL: less than 100 mg/dLNear Optimal/Above Optimal LDL: 110- 129 mg/dLBorderline High LDL: 130-159 mg/dLHigh LDL: 160-189 mg/dLVery High LDL: greater than or equal to 190 mg/dL HDL Cholesterol 58 >40 mg/dL [facility] Comment:Desirable HDL: great er than 40 mg/dL Note: This HDL assay may give artificially low results in patients with liver disease. Blood Venous blood specimen / Unknown 07/29/2023 10:47 AM EDT 07/29/2023 2:17 PM EDT us Kirstin Winston MD LAB BLOOD ORDERABLES Final Result [facility] [address] [place] [phone] * HEPATITIS C AB W/REFL TO HCV RNA, QN, PCR (11/23/2021 10:55 AM EDT) HEPATITIS C ANTIBODY NON-REACT [facility] NON-REACT [facility] INDEX 0.10 <1.00 [facility] Comment: HCV antibody was non-reactive. There is no laboratory evidence of HCV infection. In most cases, no further action is required. However, if recent HCV exposure is suspected, a test for HCV RNA (test code 71246) is suggested. For additional information please refer to http://education.PeerIndex/faq/KJJ11y7 (This link is being provided for informational/ educational purposes only.) 11/23/2021 10:5 5 AM EDT Kirstin Winston MD HISTORICAL/NON ORDERABLE LA BS Final Result [facility] [address] from Last 3 Months or Most Recently Relevant to Health Maintenance Insurance [employer]ER [phone] * Guarantor: John Lloyd Account Type Relation to Patient Date of Phone Billing Address Personal/Family Self [address] [phone] Care Teams Sleeve Baster Relationship Specialty Start Date End Date Kirstin Winston MD [address] [place] [address] PCP - General Internal Medicine 12/18/11
== END 2024-10-12 16:22 | disposition home or self-care (01) ==
LOC: HO.ENCR 15:13
PROVIDERS: PCP Internal Medicine; Visit Provider Internal Medicine Endocrinology, Diabetes & Metabolism
DX: E29.1 Testicular hypofunction (principal)
CPT/HCPCS: 99204

== ENCOUNTER → 2024-10-12 15:13 | Outpatient (BNVA) | payer OTHER, SELFPAY | PROVIDERS: PCP Internal Medicine; Visit Provider Internal Medicine Endocrinology, Diabetes & Metabolism | DX: E29.1 Testicular hypofunction (principal); M81.0 Age-related osteoporosis without current pathological fracture; R68.82 Decreased libido | CPT/HCPCS: 99202 ==

== ENCOUNTER 2024-10-14 11:24 | Outpatient (REF) | payer OTHER, SELFPAY ==
--- NOTE | ~2024-10-14 | US_ITS ---
CLINICAL HISTORY: Transaminitis US abdomen complete Comparison: None provided Findings: The visualized pancreas is normal. The aorta and inferior vena cava are normal caliber. The liver is normal in size and echotexture. There is no intrahepatic bile duct dilatation. The common duct is 3 mm in diameter. The gallbladder is normal. There is no sonographic Cabrera sign. The main portal vein is antegrade. The right kidney is 10.7 cm in length. Simple appearing upper pole cyst measuring 5 mm. The left kidney is 9.9 cm in length. Multiple simple appearing left-sided cysts, the largest measuring thirteen mm. The spleen is normal. No ascites. IMPRESSION: 1. Simple appearing renal cysts. 2. Unremarkable appearance of the liver. This document has been electronically signed by: Iman Ferreira MD on 10/15/2024 09:43:54
--- OUTSIDE RECORDS SUMMARY | 2024-10-14 12:04 | XMS_ITS | Clinical Summary ---
Author Organization [employer] Address [address] [facility] [address] [place] [address] Care Team Providers Care Makeup Artist Name Role Phone Kirstin Winston MD Primary Care Provider [phone] Allergies Active Allergy Reactions Criticality Noted Date [...] Description 10/07/2024 2:00 PM EDT Clinical Support [facility] [address] [facility] [place] [id number] Cleia Rdz RN Essential hypertension [I10] 10/07/2024 Travel 10/04/2024 Results Follow-Up [facility] [address] [facility] [place] [id number] Kirstin Winston MD Testosterone, Free (Dialysis) And Total, MS 09/13/2024 Orders Only [facility] [address] [place] [address] Kirstin Winston MD Other male erectile dysfunction (Primary Dx) 09/08/2024 Results Follow-Up [facility] [address] [place] [address] Lorie Chang, JAS TSH W/Reflex to FT4, Comprehensive Metabolic Panel, FSH, Additional followed-up results: 2 09/08/2024 Orders Only [facility] [address] [place] [address] Kirstin Winston MD Transaminitis (Primary Dx); Testicular atrophy; Primary hypogonadism in male 08/26/2024 2:45 PM EDT Office Visit [facility] [address] [place] [address] Kirstin Winston MD Tremor (Primary Dx); Other male erectile dysfunction; Abnormal gait; Essential hypertension 08/26/2024 Travel 08/23/2024 Telephone [facility] [address] [place] [address] Kirstin Winston MD Nurse Triage 08/16/2024 Refill [facility] [address] [place] [address] Kirstin Winston MD from Last 3 Months [...] the past 12 months, has t he [employer], gas, oil or water company threatened to [...] Description 10/21/2024 11:15 AM EDT Office Visit [facility] [address] [place] [address] Kirstin Winston MD [address] [place] [address] 11/08/2024 2:30 PM EDT Office Visit [facility] [address] [place] [address] Kera Reyna, OD [address] [place] [address] Health Maintenance Due Date Last Done Comments [...] EDT) Iron 164(H) 45 - 160 mcg/dL [facility] Total Iron Binding Capacity 347 228 - 428 mcg/dL [facility] Percent Iron Saturation 47 15 - 50 % [facility] Unsaturated Iron Binding 183 ug/dL [facility] Blood Venous blood specimen / Unknown 09/28/2024 1:57 PM EDT 09/28/2024 4:10 PM EDT us Kirstin Winston MD LAB BLOOD ORDERABLES Final Result Performing Organization Address [facility] Co de Phone Number [facility] [address] [place] [phone] * (ABNORMAL) Prothrombin Time-INR (09/28/2024 1:57 PM EDT) Prothrombin Time 10.2(L) 10.9 - 12.4 SEC [facility] INTERNATIONAL NORM RATIO 0.9 0.9 - 1.1 [facility] Comment:INTERNATIONAL NORMAL IZED RATIO (INR) [...] BLOOD ORDERABLES Final Result Performing Organization Address [facility]/ZIP Co de Phone Number [facility] [address] [place] [phone] * Testosterone, Free (Dialysis) And Total, MS (09/28/2024 1:57 PM EDT) Testosterone, Total 324 250 - 1100 ng/dL [facility] Comment:For additional infor karis, please refer tohttp://education.InsideSales.com/faq/KsxsoYrekiwnrrmntRZGDGUKFM965(This link is being provided for informational/educational purposes only.)This test was developed and its analytical performancecharacteristics have been determined by [place]. It hasnot been cleared or approved by the U.S. Food and DrugAdministration. This assay has been validated pursuantto the CLIA regulations and is used for clinicalpurposes. Testosterone, Free 39.9 35.0 - 155.0 pg/mL [facility] Comment:This test was develo ped and its analytical performancecharacteristics have been determined by [employer] [place], [place]. It hasnot been cleared or approved by the U.S. Food and DrugAdministration. This assay has been validated pursuantto the CLIA regulations and is used for clinicalpurposes.THIS TEST WAS PERFORMED AT:[facility] [place] [address]TJSOEUBKATHERINE VOGT MD,PHD Blood Venous blood specimen / Unknown 09/28/2024 1:57 PM EDT 09/28/2024 4:10 PM EDT us Kirstin Winston MD LAB BLOOD ORDERABLES Final Result [facility] [address] [place] [address] [phone] * Immunoglobulins, Quantitative, IgA, IgG, IgM (09/28/2024 1:57 PM EDT) IMMUNOGLOBULIN G 1112 600 - 1640 mg/dL [facility] IMMUNOGLOBULIN A 189 47 - 310 mg/dL [facility] Immunoglobulin M 85 50 - 300 mg/dL [facility] Comment:THIS TEST WAS PERFOR MED AT:[facility] [place] [id number] CEE MD Blood Venous blood specimen / Unknown 09/28/2024 1:57 PM EDT 09/28/2024 4:10 PM EDT us Kirstin Winston MD LAB BLOOD ORDERABLES Final Result Performing Organization Address City/[facility]/ZIP Co de Phone Number [facility] [address] [place] [phone] * Ferritin (09/28/2024 1:57 PM EDT) Pathologist [facility] [place] Ferritin 94 20 - 250 ng/mL [facility] Blood Venous blood specimen / Unknown 09/28/2024 1:57 PM EDT 09/28/2024 4:10 PM EDT us Kirstin Winston MD LAB BLOOD ORDERABLES Final Result Performing Organization Address [facility] Co de Phone Number [facility] [address] [place] [phone] * TSH W/Reflex to FT4 (09/07/2024 9:53 AM EDT) Pathologist [facility] [place] TSH reflex Free T4 0.76 0.32 - 4.0 uIU/mL [facility] Blood Venous blood specimen / Unknown 09/07/2024 9:53 AM EDT 09/07/2024 2:45 PM EDT us Kirstin Winston MD LAB BLOOD ORDERABLES Final Result Performing Organization Address [facility] Co de Phone Number [facility] [address] [place] [phone] * PSA, Total With Reflex to PSA, Free (09/07/2024 9:53 AM EDT) PSA,Total (Free>4and<10) 1.36 0.00 - 4.00 ng/mL [facility] Comment:A Free PSA was not [...] Winston MD LAB BLOOD ORDERABLES Final Result [facility] [address] [place] [phone] * Testosterone, Total, males (Adult), IA (09/07/2024 9:53 AM EDT) Testosterone, Total 304 250 - 1100 ng/dL [facility] Comment:For additional infor karis, please refer tohttp://education.Cuipo.Wistone/faq/FnagzNjdggvbrzefaGZXYQYYIS072(This link is being provided for informational/educational purposes only.)This test was developed and its analytical performancecharacteristics have been determined by [employer] [place], [place]. It hasnot been cleared or approved by the U.S. Food and DrugAdministration. This assay has been validated pursuantto the CLIA regulations and is used for clinicalpurposes.THIS TEST WAS PERFORMED AT:[facility]/[facility] [id number] [place] [address]KOLMIJPKATHERINE VOGT MD,PHD Blood Venous blood specimen / Unknown 09/07/2024 9:53 AM EDT 09/07/2024 2:45 PM EDT us Kirstin Winston MD LAB BLOOD ORDERABLES Final Result Performing Organization Address [facility]/ZIP Co de Phone Number [facility] [address] [place] [address] [phone] * (ABNORMAL) LH (09/07/2024 9:53 AM EDT) Lutenizing Hormone 22.5(A) 1.5 - 9.3 mIU/mL [facility] Comment:THIS TEST WAS PERFOR MED AT:[facility] [place] [address]KDXBSANGELO CEE MD Blood Venous blood specimen / Unknown 09/07/2024 9:53 AM EDT 09/07/2024 2:45 PM EDT us Kirstin Winston MD LAB BLOOD ORDERABLES Final Result Performing Organization Address [facility] Co de Phone Number [facility] [address] [place] [address] [phone] * (ABNORMAL) FSH (09/07/2024 9:53 AM EDT) Follicle Stimulating Hormone 58.5(A) 1.4 - 12.8 mIU/mL [facility] Comment:THIS TEST WAS PERFOR MED AT:[facility] [address] [place] [address]DDMUFALDAIR CEE MD Blood Venous blood specimen / Unknown 09/07/2024 9:53 AM EDT 09/07/2024 2:45 PM EDT us Kirstin Winston MD LAB BLOOD ORDERABLES Final Result Performing Organization Address [facility] Co de Phone Number [facility] [address] [place] [address] [phone] * (ABNORMAL) Comprehensive Metabolic Panel (09/07/2024 9:53 AM EDT) Sodium 141 135 - 145 mmol/L [facility] Potassium 3.9 3.3 - 5.1 mmol/L [facility] Chloride 108 96 - 108 mmol/L [facility] Carbon Dioxide 25 22 - 29 mmol/L [facility] Anion Gap 12 12 - 20 [facility] Urea Nitrogen (BUN) 25(H) 9 - 16 mg/dL [facility] Creatinine, Serum 0.84 0.5 - 1.4 mg/dL [facility] Estimated Glomerular Filt Rate >60 [facility] Comment:Chronic Kidney Disea se: Estimated GFR < 60 mL/min/1.86y5Lfwtaq Kidney Disease: Estimated GFR < 15 mL/min/1.73m2 Glucose 93 60 - 115 mg/dL [facility] Calcium 9.5 8.4 - 10.2 mg/dL [facility] Bilirubin, Total 1.1(H) 0.0 - 1.0 mg/dL [facility] Aspartate Amino Transferase 39(H) 5 - 37 U/L [facility] Alanine Aminotransferase 35 0 - 40 U/L [facility] Total Protein 7.2 6.5 - 8.0 g/dL [facility] Albumin Level 4.6 3.5 - 5.0 g/dL [facility] Alkaline Phosphatase 83 39 - 117 U/L [facility] Blood Venous blood specimen / Unknown 09/07/2024 9:53 AM EDT 09/07/2024 2:45 PM EDT us Kirstin Winston MD LAB BLOOD ORDERABLES Final Result [facility] [address] [place] [phone] * Lipid Panel, Standard (07/29/2023 10:47 AM EDT) Triglycerides 60 <150 mg/dL [facility] Comment:Desirable Triglyceri de: less than 150 mg/dLBorderline High Triglyceride 150-199 mg/dLHigh Triglyceride: 200-499 mg/dLVery High Triglyceride: greater than or equal to 5OO mg/dL Cholesterol 154 <200 mg/dL [facility] Comment:Desirable Cholestero l: less than 200 mg/dLBorderline High Cholesterol: 200-239 mg/dLHigh Cholesterol: greater than 239 mg/dL LDL Cholesterol Calculated 84 <100 mg/dL [facility] Comment:Desirable LDL: less than 100 mg/dLNear Optimal/Above Optimal LDL: 110- 129 mg/dLBorderline High LDL: 130-159 mg/dLHigh LDL: 160-189 mg/dLVery High LDL: greater than or equal to 190 mg/dL HDL Cholesterol 58 >40 mg/dL [facility] Comment:Desirable HDL: great er than 40 mg/dL Note: This HDL assay may give artificially low results in patients with liver disease. Blood Venous blood specimen / Unknown 07/29/2023 10:47 AM EDT 07/29/2023 2:17 PM EDT us Kirstin Winston MD LAB BLOOD ORDERABLES Final Result [facility] [address] [place] [phone] * HEPATITIS C AB W/REFL TO [...] a test for HCV RNA (test code 05315) is suggested. For additional information please refer to http://education.InsideSales.com/faq/GDE24s2 (This link is being provided for informational/ educational purposes only.) 11/23/2021 10:5 5 AM EDT Kirstin Winston MD HISTORICAL/NON ORDERABLE LA BS Final Result [facility] [address] from Last 3 Months or Most Recently Relevant to Health Maintenance Insurance JOSLYN GARNER [id number] * Guarantor: John Lloyd Account Type Relation to Patient Date of Phone Billing Address Personal/Family Self [address] [phone] Care Teams Makeup Artist Relationship Specialty Start Date End Date Kirstin Winston MD [address] [place] [address] PCP - General Internal Medicine 12/18/11
--- OUTSIDE RECORDS SUMMARY | 2024-10-14 12:04 | XMS_ITS | Patient Health Record ---
Author Organization [facility] Address [address] [place] [address] Care Team Providers Care [employer] Crewmember Name Role Phone Kirstin Winston M.D. Primary Care Provider Un available Krishna Kain Unavailable [phone] Allergies Allergen (clinical drug ingredient) Drug/Non Drug [...] Problem Status W/U Status Risk Notes Problem 890488957 Colon cancer screening (Z12.11) Active confirmed Problem 713663380 Blood in stool (K92.1) Active confirmed Problem 251908703765126 Pre-procedural examination (Z01.818) Active confirmed Problem Diverticulosis of colon (497623559) Diverticulosis of colon (K57.30) Active confirmed Plan Of Treatment Future Test Test Name Order Date COLONOSCOPY 09/10/2022 Insurance Providers Payer Name Payer Address Payer Phone Subscriber Number Group Number Insured Name Patient Relationship to Insured Coverage Start Date Coverage End Date MEDICARE OF [place] [address] [place] [id number] [phone] [id number] SHEILA ATKINS Self - patient is the insured MEDICAID OF [facility] [address] [place] [address] [id number] SHEILA ATKINS Self - patient is the insured Medical (General) History Medical History History ICD Code Hypertension Hyperlipidemia Denies MS,DM,CVA,Lung disease,renal dise ase 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 Macular degeneration Surgical History Surgery Date(Month/Year) Tonsils
== END 2024-10-14 11:25 | disposition home or self-care (01) ==
LOC: HO.HMGCX 11:24
PROVIDERS: PCP Internal Medicine; Visit Provider Internal Medicine
DX: R74.01 Elevation of levels of liver transaminase levels (principal)
CPT/HCPCS: 76700

== ENCOUNTER → 2024-10-14 11:40 | Outpatient (BNV) | payer OTHER, SELFPAY | PROVIDERS: PCP Internal Medicine; Visit Provider Radiology Diagnostic Radiology | DX: R74.01 Elevation of levels of liver transaminase levels (principal); N28.1 Cyst of kidney, acquired | CPT/HCPCS: 76700 ==

== ENCOUNTER 2024-10-29 16:27 | Outpatient (REF) | payer OTHER, SELFPAY ==
--- NOTE | ~2024-10-29 | MR_ITS ---
EXAMINATION: MR BRAIN WITHOUT CONTRAST CLINICAL INFORMATION: Cerebellar ataxia. COMPARISON: None available. TECHNIQUE: MRI of the brain was obtained using routine sequences without contrast. FINDINGS: Patient's motion artifact. No restricted diffusion. No acute intracranial hemorrhage, mass effect, midline shift, hydrocephalus or herniation. Bilateral, patchy, punctate deep periventricular white matter hyperintense T2 FLAIR signal involving centrum semiovale and raman radiata there is a probable central veins spine in the left frontal deep periventricular white matter hyperintense T2 FLAIR signal. Massey-white matter differentiation is normal. Hyperintense T2 FLAIR signal involving the quadrigeminal plate and to the inferior cerebellar peduncles. Flow-void signal within the main cerebral vessels is normal. Sellar/suprasellar region demonstrated no signal abnormality or gross masses. Craniocervical junction demonstrates normal position of the cerebellar tonsils. MR/MR head/brain wo con IMPRESSION: No acute stroke/ischemia. No acute intracranial hemorrhage. White matter disease involving supratentorial and infratentorial compartments. Demyelinating process versus vascular etiology should be considered. Electronically signed by: Zane Santiago MD 11/01/2024 07:10 AM EDT
--- OUTSIDE RECORDS SUMMARY | 2024-10-29 16:32 | XMS_ITS | Patient Health Record ---
Author Organization [facility] Address [address] [place] [address] Care Team Providers Care Management Accounts Manager Name Role Phone Kirstin Winston M.D. Primary Care Provider Un available Krishna Kain Unavailable [phone] Allergies Allergen (clinical drug ingredient) Drug/Non Drug [...] Problem Status W/U Status Risk Notes Problem 302941298 Colon cancer screening (Z12.11) Active confirmed Problem 718701218 Blood in stool (K92.1) Active confirmed Problem [id number] Pre-procedural examination (Z01.818) Active confirmed Problem Diverticulosis of colon (445466019) Diverticulosis of colon (K57.30) Active confirmed Plan Of Treatment Future Test Test Name Order Date COLONOSCOPY 09/10/2022 Insurance Providers Payer Name Payer Address Payer Phone Subscriber Number Group Number Insured Name Patient Relationship to Insured Coverage Start Date Coverage End Date MEDICARE OF [place] [address] [place] [id number] SHEILA ATKINS Self - patient is the insured MEDICAID OF [facility] [address] [place] [address] [id number] SHEILA ATKINS Self - patient is the insured Medical (General) History Medical History History ICD Code Hypertension Hyperlipidemia Denies CO,DM,CVA,Lung disease,renal dise ase 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 Macular degeneration Surgical History Surgery Date(Month/Year) Tonsils
== END 2024-10-29 16:28 | disposition home or self-care (01) ==
LOC: HO.MRI 16:27
PROVIDERS: Visit Provider Psychiatry & Neurology Neurology
DX: G11.9 Hereditary ataxia, unspecified (principal)
CPT/HCPCS: 70551

== ENCOUNTER → 2024-10-29 16:46 | Outpatient (BNV) | payer OTHER, SELFPAY | PROVIDERS: Visit Provider Radiology Diagnostic Radiology | DX: G11.9 Hereditary ataxia, unspecified (principal) | CPT/HCPCS: 70551 ==

== ENCOUNTER 2024-11-16 12:10 | Outpatient (AMB) | payer OTHER, SELFPAY ==
--- NOTE | 2024-11-16 12:18 | MHC.OFFVIS ---
Intake Visit Reasons: 6 weeks Allergies Penicillins Allergy (Unknown, Verified 10/12/24 15:22) Unknown HPI Comments Details: No change in the marked cerebellar ataxia of limbs. 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 He said that he had difficulty walking with pain and stiffness in his knees.? 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 He's had problems with alcohol abuse off and on.? He gradually progressed from using a cane for the last 10 years to a walker in the last 2 years with progressive gait disturbance.? He's had some changes in his speech.? In the last year or so, he has??had markedly worsening tremors that started in the left and then went to the right hand and is quite violent.? He needs to hold both hands together to feed himself.? He is unable to cook and do anything else.? He uses a walker at home and a wheelchair outside.? His mother had some tremors and was diagnosed with Parkinson's disease.? No other family history is known.? He's been on disability since the age of 41. 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 Difficulty getting to sleepadmits.? Difficulty maintaining sleepadmits.? Urge to move legsdenies.? Teeth grindingdenies.? Shouting or Kicking during sleepdenies.? Abnormal behavior during sleepdenies.? Excessive sleepdenies.? Snoringdenies.? Daytime sleepinessdenies. ???General/Constitutional:? Change in appetitedenies.? Chillsdenies.? Fatiguedenies.? Feverdenies.? Weight gaindenies.? Weight lossdenies. ???Ophthalmologic:? Blurred visiondenies.? Diminished visual acuitydenies. ???ENT:? Stuffinessdenies.? Decreased hearingdenies.? Dry mouthdenies.? Ear paindenies.? Nosebleeddenies.? Ringing in the earsadmits.? Sinus paindenies.? Sore throatdenies.? Swollen glandsdenies. ???Endocrine:? Cold intolerancedenies.? Excessive thirstdenies.? Frequent urinationdenies.? Heat intolerancedenies. ???Respiratory:? Shortness of breathdenies.? Chest paindenies.? Coughdenies. ???Breast:? Breast lumpdenies.? Nipple dischargedenies. ???Cardiovascular:? Chest pain at restdenies.? Chest pain with exertiondenies.? Claudicationdenies.? Dizzinessdenies.? Fluid accumulation in the legsdenies.? Irregular heartbeatdenies.? Palpitationsdenies. ???Gastrointestinal:? Abdominal paindenies.? Constipationadmits.? Diarrheadenies.? Difficulty swallowingdenies.? Heartburnadmits.? Nauseadenies.? Rectal bleedingdenies. ???Hematology:? Easy bruisingdenies.? Prolonged bleedingdenies. ???Genitourinary:? Frequent urinationadmits.? Urgencyadmits.? Incontinencedenies.? Erectile Dysfunctiondenies. ???Musculoskeletal:? Neck paindenies.? Back paindenies.? Muscle achesdenies.? Painful jointsdenies.? Sciaticadenies.? Weaknessdenies. ???Podiatric:? Difficulty walkingdenies.? Foot numbnessdenies. ???Neurologic:? Difficulty swallowingdenies.? Balance difficultyadmits.? Coordinationnormal.? Difficulty speakingadmits.? Dizzinessdenies.? Faintingdenies.? Gait abnormalityadmits.? Headachedenies.? Loss of strengthdenies.? Loss of use of extremitydenies.? Low back paindenies.? Memory lossdenies.? Seizuresdenies.? Ticsdenies.? Tingling/Numbnessadmits.? Transient loss of visiondenies.? Tremorthat is severe. ???Psychiatric:? Anxietyadmits.? Auditory/visual hallucinationsdenies.? Delusionsagitation and aggression and distrust.? Depressed moodadmits.? Stressorsdenies.? Substance abusedenies.? Suicidal thoughtsdenies. Physical Exam Neuro Other: Neurological: Abnormal neurological findings:??coarse tremor of the hands due to 4 Hz moderate to high amplitude at rest markedly increased and holding the hands up with a very prominent large amplitude cerebellar tremor that gets worse on finger to nose test bilaterally.? He has to hold both hands together to get any semblance of direction with his hands.? He also has a truncal and head titubation tremor.? He stands up with full support with a broad-based gait and tends to fall over and can barely take one or 2 steps without losing his balance.? There is some mild breakdown in fluency of his speech with a slight cerebellar component..?Mental Status:??alert and oriented X 3,?Normal attention, orientation, memory and affect.?Cranial Nerves:??Pupils are equal, round and reactive to light. Fundoscopy shows normal disc bilaterally. External occular muscles are intact. Visual dyer are full, no ptosis. Face is symmetrical, no facial weakness or droop. Facial sensations are normal. Tongue protrudes in midline. Palate elevates symmetrically. Shoulder shrugging is normal..?Motor Examination:??Normal muscle tone, bulk and strength,?No atrophy or fasciculations,?No drift of the extended upper extremities,?Deep tendon reflexes are 2+?,?Plantars are flexor?.?Motor Strength:?Proximal Muscles (out of 5):5Distal Muscles (out of 5):5Neck Flexors (out of 5):5Neck Extensors (out of 5):5Deltoid (out of 5):5Biceps (out of 5):5Triceps (out of 5):5Serratus Anterior (out of 5):5Wrist Extensors (out of 5):5APB (out of 5):5Finger Spread (out of 5):5Ileopsoas (out of 5):5Quadriceps (out of 5):5Hamstrings (out of 5):5Tibialis Anterior (out of 5):5Peronei (out of 5):5EDB (out of 5):5Gastrocnemius (out of 5):5Straight Leg Raising:??90 degrees.?Sensory Exam:??Normal light touch, temperature, pinprick, vibration and joint-position sensations?,?Rhomberg sign is absent.?Coordination:??as above.?Gait Exam:??as above.?Cerebellar Signs:??marked cerebellar tremor.?Extrapyramidal System:??No tremor, rigidity with normal facial expressions,?No bradykinesia, no bradyphrenia. Normal arm swing and posture. No propulsion or retropulsion.?Speech:??Normal,?no dysphasia or dysarthria..? Mini Mental Status Exam: Level of Consciousness:??Alert.?Orientation:??Knows correct year, month, date, day and season,?Knows correct city, county and state. Knows correct location and floor.?Registration:??Able to register 3 objects.?Attention:??Serial 7's performed accurately.?Recall:??Able to recall 3 out of 3 objects.?Language:??Normal spontaneous speech, fluency, repetition,naming, comprehension, reading and writing.?Total Score:??30/30.? General Examination: GENERAL APPEARANCE:??normal,?in no acute distress.?HEAD:??normocephalic,?atraumatic.?EYES:??sclera non-icteric,?conjunctiva clear.?EARS:??auditory canal clear,?tympanic membrane intact, clear.?NOSE:??no lesions.?ORAL CAVITY:??gums normal,?mucosa moist,?no lesions.?THROAT:??clear.?NECK/THYROID:??no cervical lymphadenopathy,?thyroid normal,?neck supple, full range of motion,?no carotid bruit.?SKIN:??no rashes,?no significant birthmarks.?HEART:??S1, S2 normal,?no murmurs.?LUNGS:??clear anteriorly and posteriorly.?CHEST:??no gross rib deformity,?clear to auscultation.?BACK:??normal exam of spine.?EXTREMITIES:??no edema.?PERIPHERAL PULSES:??normal.?PSYCH:??alert, oriented,?cognitive function intact,?cooperative with exam.? Results Reviewed Results Reviewed: 10/29/24 MRI brain : Bilateral, mild patchy, punctate white matter hyperintense T2 FLAIR signal involving centrum semiovale and raman radiata and deep and periventricular. Slight increased T2 signal in quadrigeminal plate area. Assessment & Plan Assessment & Plan (1) Cerebellar ataxia: Code(s): G11.9 - Hereditary ataxia, unspecified Category: Medical (2) Tremor due to disorder of central nervous system: Code(s): G96.9 - Disorder of central nervous system, unspecified; R25.1 - Tremor, unspecified Category: Medical Plan Complete ataxia panel of [place] for genetic forms of cerebellar ataxia. Check serum ceruloplasmin levels Orders: Orders Ceruloplasmin Today G96.9 - Disorder of central nervous system, unspecified, R25.1 - Tremor, unspecified Coding Level of Care Code Est Pt Level 4 (26160) Diagnoses Cerebellar ataxia G11.9 Tremor due to disorder of central nervous system G96.9; R25.1
--- OUTSIDE RECORDS SUMMARY | 2024-11-16 13:02 | XMS_ITS | Patient Health Record ---
Author Organization [facility] Address [address] [place] [address] Care Team Providers Care Crisis Manager Name Role Phone Kirstin Winston M.D. Primary Care Provider Un available Krishna Kain Unavailable [phone] Allergies Allergen (clinical drug ingredient) Drug/Non Drug [...] Problem Status W/U Status Risk Notes Problem 251229031 Colon cancer screening (Z12.11) Active confirmed Problem [id number] Blood in stool (K92.1) Active confirmed Problem [id number] Pre-procedural examination (Z01.818) Active confirmed Problem Diverticulosis of colon (366168518) Diverticulosis of colon (K57.30) Active confirmed Plan Of Treatment Future Test Test Name Order Date COLONOSCOPY 09/10/2022 Insurance Providers Payer Name Payer Address Payer Phone Subscriber Number Group Number Insured Name Patient Relationship to Insured Coverage Start Date Coverage End Date MEDICARE OF [place] [address] [place] [id number] [phone] [id number] SHEILA ATKINS Self - patient is the insured MEDICAID OF [facility] [address] [place] [address] [id number] SHEILA ATKINS Self - patient is the insured Medical (General) History Medical History History ICD Code Hypertension Hyperlipidemia Denies MO,DM,CVA,Lung disease,renal dise ase 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 Macular degeneration Surgical History Surgery Date(Month/Year) Tonsils
--- OUTSIDE RECORDS SUMMARY | 2024-11-16 13:02 | XMS_ITS | Clinical Summary ---
Author Organization [employer] Address [address] [facility] [address] [place] [address] Care Team Providers Care Brass Pickler Name Role Phone Kirstin Winston MD Primary Care Provider [phone] Allergies Active Allergy Reactions Criticality Noted Date [...] Encounters Date Type Department Care Team Description 11/08/2024 2:30 PM EDT Office Visit [facility] [address] [place] [address] Kera Reyna, REBEL Nonexudative age-related macular degeneration, bilateral, intermediate dry stage (Primary Dx); Combined forms of age-related cataract of both eyes; Presbyopia 11/08/2024 Travel 10/21/2024 11:15 AM EDT Office Visit [facility] [address] [place] [address] Kirstin Winston MD Essential hypertension (Primary Dx); Tremor; Transaminitis 10/21/2024 Travel 10/07/2024 2:00 PM EDT Clinical Support [facility] [address] [place] [address] Celia Rdz RN Essential hypertension [I10] 10/07/2024 Travel 10/04/2024 Results Follow-Up [facility] [address] [place] [address] Kirstin Winston MD Testosterone, Free (Dialysis) And Total, MS 09/13/2024 Orders Only [facility] [address] [place] [address] Kirstin Winston MD Other male erectile dysfunction (Primary Dx) 09/08/2024 Results Follow-Up [facility] [address] [place] [address] Lorie Chang RN TSH W/Reflex to FT4, Comprehensive Metabolic Panel, FSH, Additional followed-up results: 2 09/08/2024 Orders Only [facility] [address] [place] [address] Kirstin Winston MD Transaminitis (Primary Dx); Testicular atrophy; Primary hypogonadism in male 08/26/2024 2:45 PM EDT Office Visit [facility] [address] [place] [address] Kirstin Winston MD Tremor (Primary Dx); Other male erectile dysfunction; Abnormal gait; Essential hypertension 08/26/2024 Travel 08/23/2024 Telephone [facility] [address] [place] [address] Kirstin Crews MD Nurse Triage 08/16/2024 Refill [facility] [address] [place] [address] Kirstin Crews MD from Last 3 Months Family History [...] Sign Reading Time Taken Comments Blood Pressure 156/80 10/21/2024 11:26 AM EDT Pulse 58 10/21/2024 11:26 AM EDT Temperature 36.8 C (98.2 F) 10/21/2024 11:26 AM EDT Respiratory Rate 18 10/21/2024 11:26 AM EDT Oxygen Saturation 98% 10/21/2024 11:26 AM EDT Inhaled Oxygen Concentration - - Weight 64.9 kg (143 lb) 10/21/2024 11:26 AM EDT Height 165.4 cm (5' 5.13 ) 10/21/2024 11:26 AM E DT Body Mass Index 23.7 10/21/2024 11:26 AM EDT Plan of Treatment Upcoming Encounters Date Type Department Care Team ([facility] st Contact Info) Description 11/18/2024 3:15 PM EDT Telemedicine [facility] [address] [place] [address] Kirstin Winston MD [address] [place] [address] Health Maintenance Due Date Last Done Comments CT Colonography 1967 FIT DNA/Cologuard 1967 FIT 1965 FOBT 1965 Sigmoidoscopy 1965 Disability Screening 1967 Alcohol/Substance Use Screening 1979 Hepatitis B Vaccines (1 of 3 - 19+ 3-dose series) 07/02/1986 Zoster Vaccines (1 of 2) 07/02/2017 COVID-19 Vaccine ( - 2023-2 5 season) 2023 SDOH Screening 01/28/2024 01/27/2023 Depression Screening 10/05/2024 10/06/2023, 10/06/2023 Influenza Vaccine (#1) 2024 Pneumococcal Vaccine: 50+ Years (1 of 1 - PCV) 08/26/2025 Postponed from 07/02/2017 (Patient Refused) Tobacco Screening 11/11/2025 11/11/2024 Colonoscopy 11/26/2027 11/25/2022 Colorectal Cancer Screening 11/26/2027 [...] Procedure Name Priority Date/Time Associated Diagnosis Comments OCT, RETINA - OU - BOTH EYES Routine 11/08/2024 2:30 PM EDT Nonexudative age-related macular degeneration, bilateral, intermediate dry stage US ABDOMEN COMPLETE Routine 10/15/2024 9 :43 AM EDT Transaminitis TESTOSTERONE, FREE (DIALYSIS) AND TOTAL,MS Routine 09/28/2024 [...] PANEL, STANDARD Routine 07/29/2023 10:47 AM EDT Hypercholesterolemia COLONOSCOPY Routine 11/25/2022 ZZZ HISTORICAL HEPATITIS C AB W/REFL TO HCV RNA, QN, PCR Routine 11/23/2021 10:55 AM EDT from Last 3 Months or Most Recently Relevant to Health Maintenance Results * OCT, Retina - OU - Both Eyes (11/08/2024 2:30 PM EDT) Kera Martin, OD - 11/11/2024 10:30 AM EDT Images from the original result were not included. OCT RETINA INTERPRETATION Optical Coherence Tomography Interpretation Report Reliability: OD: SS 61 - excellent quality image OS: SS 60 - excellent quality image Measurements: Central subfoveal thickness OD: 260 microns OS: 261 microns Test findings: OD: Foveal and parafoveal soft drusen & drusenoid PEDs, multiple areas of anterior retinal pigment epithelium (RPE) migration. Small PIL break subfoveally. Trace epiretinal membrane (ERM). (-) retinal thickening, (-) IRF/subretinal fluid (SRF) Grossly stable to 2023 scans. OS: Foveal and parafoveal soft drusen & drusenoid PEDs. Subfoveal coalesced drusen - area is high risk for conversion to wet. Some mild anterior retinal pigment epithelium (RPE) migration. Partial PVD with vitreomacular adhesion. (-) retinal thickening, (-) IRF/SRF Large area of subfoveal coalesced appear to have increased since 2022 scans. Impression and Plan: Intermediate dry age-related macular degeneration (ARMD) both eyes (OU) with high risk for conversion to advanced age-related macular degeneration (ARMD). Monitor in 6 months. us Kera Reyna OD OPHTH TOMOGRAPHY Final Result * US Abdomen Complete (10/15/2024 9:43 AM EDT) Anatomical Region Laterality Modality Abdomen Ultrasound 10/15/2024 9:43 AM EDT Narrative 10/15/2024 9:45 AM EDT [facility] [address] [place] [address] [place] [address] Ultrasound Report Signed Patient: John Lloyd MR#: [id number] : 1965 Acct:[id number] Age/Sex: 59 / M ADM Date: 10/14/24 Loc: [facility] Attending Dr: Kirstin Winston MD Ordering Physician: Kirstin Winston MD Date of Service: 10/14/24 Procedure(s): US abdomen complete Accession Number(s): [id number] cc: Kirstin Winston MD CLINICAL HISTORY: Transaminitis US abdomen complete Comparison: None provided Findings: The visualized pancreas is normal. The aorta and inferior vena cava are normal caliber. The liver is normal in size and echotexture. There is no intrahepatic bile duct dilatation. The common duct is 3 mm in diameter. The gallbladder is normal. There is no sonographic Cabrera sign. The main portal vein is antegrade. The right kidney is 10.7 cm in length. Simple appearing upper pole cyst measuring 5 mm. The left kidney is 9.9 cm in length. Multiple simple appearing left-sided cysts, the largest measuring thirteen mm. The spleen is normal. No ascites. IMPRESSION: 1. Simple appearing renal cysts. 2. Unremarkable appearance of the liver. This document has been electronically signed by: Iman Ferreira MD on 10/15/2024 09:43:54 Dictated By: Iman Ferreira MD Signed By: <Electronically signed by Iman Ferreira MD in OV> 10/15/2445 DD/ 2 TD/TT: 10/15/24942 Volcanology Teacher: Procedure Note Donotuseinterpreter, Image - 10/15/2024 [facility] Adult Primary [address] [place] [address] Ultrasound Report Signed Patient: John LloydMR#: [id number] : 1965Acct:[id number] Age/Sex: 59 / MADM Date: 10/14/24 Loc: HO.[facility] Attending Dr: Kirstin Winston MD Ordering Physician: Kirstin Winston MD Date of Service: 10/14/24 Procedure(s): US abdomen complete Accession Number(s): [id number] cc: Kirstin Winston MD CLINICAL HISTORY: Transaminitis US abdomen complete Comparison: None provided Findings: The visualized pancreas is normal. The aorta and inferior vena cava are normal caliber. The liver is normal in size and echotexture. There is no intrahepatic bile duct dilatation. The common duct is 3 mm in diameter. The gallbladder is normal. There is no sonographic Cabrera sign. The main portal vein is antegrade. The right kidney is 10.7 cm in length. Simple appearing upper pole cyst measuring 5 mm. The left kidney is 9.9 cm in length. Multiple simple appearing left-sided cysts, the largest measuring thirteen mm. The spleen is normal. No ascites. IMPRESSION: 1. Simple appearing renal cysts. 2. Unremarkable appearance of the liver. This document has been electronically signed by: Iman Ferreira MD on 10/15/2024 09:43:54 Dictated By: Iman Ferreira MD Signed By: <Electronically signed by Iman Ferreira MD in OV> 10/15/2445 DD/ 2 TD/TT: 10/15/24942 Volcanology Teacher: Kirstin Winston MD IMG US PROCEDURES Edited Re sult - Final * (ABNORMAL) Iron And Total Iron Binding Capacity (09/28/2024 1:57 PM EDT) Iron 164(H) 45 - 160 mcg/dL [facility] Total Iron Binding Capacity 347 228 - 428 mcg/dL [facility] Percent Iron Saturation 47 15 - 50 % [facility] Unsaturated Iron Binding 183 ug/dL [facility] Blood Venous blood specimen / Unknown 09/28/2024 1:57 PM EDT 09/28/2024 4:10 PM EDT Kirstin Winston MD LAB BLOOD ORDERABLES Final Result Performing Organization Address City/[facility] Co de Phone Number [facility] [address] [place] [phone] * (ABNORMAL) Prothrombin Time-INR (09/28/2024 1:57 PM EDT) Prothrombin Time 10.2(L) 10.9 - 12.4 SEC [facility] INTERNATIONAL NORM RATIO 0.9 0.9 - 1.1 [facility] Comment:INTERNATIONAL NORMAL IZED RATIO (INR) REFERENCE [...] 1:57 PM EDT 09/28/2024 4:10 PM EDT Kirstin Winston MD LAB BLOOD ORDERABLES Final Result Performing Organization Address [facility] de Phone Number [facility] [address] [place] [phone] * Testosterone, Free (Dialysis) And Total, MS (09/28/2024 1:57 PM EDT) Testosterone, Total 324 250 - 1100 ng/dL [facility] Comment:For additional infor mation, please refer tohttp://education.Sc[employer].SpokenLayer/faq/RedjgZauzbiakicvtJEZEIRLFO660(This link is being provided for informational/educational purposes only.)This test was developed and its analytical performancecharacteristics have been determined by [facility] [place], [place]. It hasnot been cleared or approved by the U.S. Food and DrugAdministration. This assay has been validated pursuantto the CLIA regulations and is used for clinicalpurposes. Testosterone, Free 39.9 35.0 - 155.0 pg/mL [facility] Comment:This test was develo ped and its analytical performancecharacteristics have been determined by [facility] [place], [place]. It hasnot been cleared or approved by the U.S. Food and DrugAdministration. This assay has been validated pursuantto the CLIA regulations and is used for clinicalpurposes.THIS TEST WAS PERFORMED AT:[facility] [place] [address]OZSWRNQKATHERINE VOGT MD,PHD Blood Venous blood specimen / Unknown 09/28/2024 1:57 PM EDT 09/28/2024 4:10 PM EDT us Kirstin Winston MD LAB BLOOD ORDERABLES Final Result Performing Organization Address [facility] de Phone Number [facility] [address] [place] [phone] * Immunoglobulins, Quantitative, IgA, IgG, IgM (09/28/2024 1:57 PM EDT) Pathologist [facility] IMMUNOGLOBULIN G 1112 600 - 1640 mg/dL [facility] IMMUNOGLOBULIN A 189 47 - 310 mg/dL [facility] Immunoglobulin M 85 50 - 300 mg/dL [facility] Comment:THIS TEST WAS PERFOR MED AT:[employer] [address] [id number] CEE MD Blood Venous blood specimen / Unknown 09/28/2024 1:57 PM EDT 09/28/2024 4:10 PM EDT us Kirstin Winston MD LAB BLOOD ORDERABLES Final Result Performing Organization Address [facility] Co de Phone Number [facility] [address] [place] [phone] * Ferritin (09/28/2024 1:57 PM EDT) Pathologist [facility] Ferritin 94 20 - 250 ng/mL [facility] Blood Venous blood specimen / Unknown 09/28/2024 1:57 PM EDT 09/28/2024 4:10 PM EDT Kirstin Winston MD LAB BLOOD ORDERABLES Final Result Performing Organization Address City/[facility]/ZIP Co de Phone Number [facility] [address] [place] [phone] * TSH W/Reflex to FT4 (09/07/2024 9:53 AM EDT) TSH reflex Free T4 0.76 0.32 - 4.0 uIU/mL [facility] Blood Venous blood specimen / Unknown 09/07/2024 9:53 AM EDT 09/07/2024 2:45 PM EDT Kirstin Winston MD LAB BLOOD ORDERABLES Final Result Performing Organization Address [facility] Co de Phone Number [facility] [address] [place] [phone] * PSA, Total With Reflex to PSA, Free (09/07/2024 9:53 AM EDT) Pathologist [facility] PSA,Total (Free>4and<10) 1.36 0.00 - 4.00 ng/mL [facility] Comment:A Free PSA was not p [...] BLOOD ORDERABLES Final Result Performing Organization Address [facility] Co de Phone Number [facility] [address] [place] [phone] * Testosterone, Total, males (Adult), IA (09/07/2024 9:53 AM EDT) Testosterone, Total 304 250 - 1100 ng/dL [facility] Comment:For additional infor mation, please refer tohttp://education.Markit/faq/UlnseRxgrwnoabcxhNMQAYMYCI379(This link is being provided for informational/educational purposes only.)This test was developed and its analytical performancecharacteristics have been determined by [employer] [place], [place]. It hasnot been cleared or approved by the U.S. Food and DrugAdministration. This assay has been validated pursuantto the CLIA regulations and is used for clinicalpurposes.THIS TEST WAS PERFORMED AT:[employer]/[facility] [place] [address]VCQPUBXKATHERINE VOGT MD,PHD Blood Venous blood specimen / Unknown 09/07/2024 9:53 AM EDT 09/07/2024 2:45 PM EDT us Kirstin Winston MD LAB BLOOD ORDERABLES Final Result Performing Organization Address [facility]/ZIP Co de Phone Number [facility] [address] [place] [phone] * (ABNORMAL) LH (09/07/2024 9:53 AM EDT) Lutenizing Hormone 22.5(A) 1.5 - 9.3 mIU/mL [facility] Comment:THIS TEST WAS PERFOR MED AT:[employer] [address] [address]CYOWMJER CEE MD Blood Venous blood specimen / Unknown 09/07/2024 9:53 AM EDT 09/07/2024 2:45 PM EDT Kirstin Winston MD LAB BLOOD ORDERABLES Final Result Performing Organization Address [facility]/ZIP Co de Phone Number [facility] [address] [place] [phone] * (ABNORMAL) FSH (09/07/2024 9:53 AM EDT) Follicle Stimulating Hormone 58.5(A) 1.4 - 12.8 mIU/mL [facility] Comment:THIS TEST WAS PERFOR MED AT:[employer] [place] [id number] CEE MD Blood Venous blood specimen / Unknown 09/07/2024 9:53 AM EDT 09/07/2024 2:45 PM EDT us Kirstin Winston MD LAB BLOOD ORDERABLES Final Result Performing Organization Address [facility] de Phone Number [facility] [address] [place] [phone] * (ABNORMAL) Comprehensive Metabolic Panel (09/07/2024 9:53 AM EDT) Sodium 141 135 - 145 mmol/L [facility] Potassium 3.9 3.3 - 5.1 mmol/L [facility] Chloride 108 96 - 108 mmol/L [facility] Carbon Dioxide 25 22 - 29 mmol/L [facility] Anion Gap 12 12 - 20 [facility] Urea Nitrogen (BUN) 25(H) 9 - 16 mg/dL [facility] Creatinine, Serum 0.84 0.5 - 1.4 mg/dL [facility] Estimated Glomerular Filt Rate >60 [facility] Comment:Chronic Kidney Disea se: Estimated GFR < 60 mL/min/1.44f1Nhecbf Kidney Disease: Estimated GFR < 15 mL/min/1.73m2 Glucose 93 60 - 115 mg/dL [facility] Calcium 9.5 8.4 - 10.2 mg/dL [facility] Bilirubin, Total 1.1(H) 0.0 - 1.0 mg/dL [facility] Aspartate Amino Transferase 39(H) 5 - 37 U/L [facility] Alanine Aminotransferase 35 0 - 40 U/L [facility] Total Protein 7.2 6.5 - 8.0 g/dL [facility] Albumin Level 4.6 3.5 - 5.0 g/dL [facility] Alkaline Phosphatase 83 39 - 117 U/L [facility] Blood Venous blood specimen / Unknown 09/07/2024 9:53 AM EDT 09/07/2024 2:45 PM EDT Kirstin Winston MD LAB BLOOD ORDERABLES Final Result [facility] [address] [place] [phone] * Lipid Panel, Standard (07/29/2023 10:47 AM EDT) Triglycerides 60 <150 mg/dL [facility] Comment:Desirable Triglyceri de: less than 150 mg/dLBorderline High Triglyceride 150-199 mg/dLHigh Triglyceride: 200-499 mg/dLVery High Triglyceride: greater than or equal to 5OO mg/dL Cholesterol 154 <200 mg/dL [facility] Comment:Desirable Cholestero l: less than 200 mg/dLBorderline High Cholesterol: 200-239 mg/dLHigh Cholesterol: greater than 239 mg/dL LDL Cholesterol Calculated 84 <100 mg/dL [facility] Comment:Desirable LDL: less than 100 mg/dLNear Optimal/Above Optimal LDL: 110- 129 mg/dLBorderline High LDL: 130-159 mg/dLHigh LDL: 160-189 mg/dLVery High LDL: greater than or equal to 190 mg/dL HDL Cholesterol 58 >40 mg/dL [facility] Comment:Desirable HDL: great er than 40 mg/dL Note: This HDL assay may give artificially low results in patients with liver disease. Blood Venous blood specimen / Unknown 07/29/2023 10:47 AM EDT 07/29/2023 2:17 PM EDT us Kirstin Winston MD LAB BLOOD ORDERABLES Final Result Performing Organization Address [facility] Co de Phone Number [facility] [address] [place] [phone] * HEPATITIS C AB W/REFL TO HCV RNA, QN, PCR (11/23/2021 10:55 AM EDT) HEPATITIS C ANTIBODY NON-REACT ANGELITA NON-REACT ANGELITA [facility] INDEX 0.10 <1.00 [facility] Comment: HCV antibody was non-reactive. There is no laboratory evidence of HCV infection. In most cases, no further action is required. However, if recent HCV exposure is suspected, a test for HCV RNA (test code 41227) is suggested. For additional information please refer to http://education.Scatter Lab.SpokenLayer/faq/CZW35b8 (This link is being provided for informational/ educational purposes only.) 11/23/2021 10:5 5 AM EDT us Kirstin Winston MD HISTORICAL/NON ORDERABLE LA BS Final Result Performing Organization Address City/[facility] Co de Phone Number [facility] [address] from Last 3 Months or Most Recently Relevant to Health Maintenance Insurance [facility] < [address] [place] [id number] Care Teams Brass Pickler Relationship Specialty Start Date End Date Kirstin Winston MD [address] [place] [phone] PCP - General Internal Medicine 12/18/11
== END 2024-11-16 12:39 | disposition home or self-care (01) ==
LOC: HO.HSM 12:11
PROVIDERS: PCP Internal Medicine; Referring Provider Internal Medicine; Visit Provider Psychiatry & Neurology Neurology
DX: G11.9 Hereditary ataxia, unspecified (principal); G96.9 Disorder of central nervous system, unspecified; R25.1 Tremor, unspecified
CPT/HCPCS: 99214

== ENCOUNTER → 2024-11-16 12:10 | Outpatient (BNVA) | payer OTHER, SELFPAY | PROVIDERS: PCP Internal Medicine; Referring Provider Internal Medicine; Visit Provider Psychiatry & Neurology Neurology | DX: G11.9 Hereditary ataxia, unspecified (principal); G96.9 Disorder of central nervous system, unspecified; R25.1 Tremor, unspecified | CPT/HCPCS: 99212 ==

== ENCOUNTER 2025-01-11 14:32 | Outpatient (REF) | payer OTHER, SELFPAY ==
[2025-01-11 15:10] LABS: Hematocrit 40.9 % (42.0-52.0); Hemoglobin 14.1 g/dl (14.0-18.0)
[2025-01-11 15:53] LABS: Prostate Specific Antigen 1.45 ng/mL (<0.05-4.0)
--- OUTSIDE RECORDS SUMMARY | 2025-01-11 17:55 | XMS_ITS | Clinical Summary ---
Author Organization [employer] Address [address] [facility] 7t [place] [address] Care Team Providers Care Assistant Strength Coach Name Role Phone Kirstin Winston MD Primary Care Provider [phone] Allergies Active Allergy Reactions Criticality Noted Date Comments Penicillin G Other 12/19/2022 Nausea Medications loratadine (Claritin) 10 MG tabletIndication s:Seasonal allergies TAKE 1 TABLET BY MOUTH EVERY DAY 90 tablet 11/14/19 23 Active rosuvastatin (Crestor) 20 MG tabletIndication s:Hypercholester olemia TAKE 1 TABLET BY MOUTH EVERYDAY AT BEDTIME 90 tablet 07/30/19 24 Active atenolol (Tenormin) 50 MG tabletIndication s:Essential hypertension,Thompson mor Take 1 tablet (50 mg) by mouth 2 times daily. 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 Age-related macular degeneration 07/16/2019 Hemorrhage of rectum and anus 12/17/2008 Essential hypertension 12/18/2007 Encounters Date Type Department Care Team Description 01/11/2025 Orders Only GENERIC EXTERNAL DATA DEPARTMENT Provider, Generic External Data 12/13/2024 Refill [facility] MED [facility] PEDS [address] [place] [address] Kirstin Winston MD Essential hypertension 11/18/2024 3:15 PM EDT Telemedicine [facility] MED & PEDS [address] [place] [address] Kirstin Winston MD Essential hypertension (Primary Dx); Transaminitis; Tremor; Cerebellar ataxia (CMS/HCC) 11/18/2024 Travel 11/08/2024 2:30 PM EDT Office Visit [facility] OPTOMET[facility] [address] [place] [address] Kera Reyna, OD Nonexudative age-related macular degeneration, bilateral, intermediate dry stage (Primary Dx); Combined forms of age-related cataract of both eyes; Presbyopia 11/08/2024 Travel 10/21/2024 11:15 AM EDT Office Visit [facility] MED & PEDS [address] [place] [address] Kirstin Winston MD Essential hypertension (Primary Dx); Tremor; Transaminitis 10/21/2024 Travel from Last 3 Months Family History Medical [...] 10/21/2024 11:26 AM EDT Plan of Treatment Health Maintenance Due Date Last Done Comments CT Colonography 1967 FIT DNA/Cologuard 1965 FIT 1965 FOBT 1965 Sigmoidoscopy 1965 Disability Screening 1967 Alcohol/Substance Use Screening 1979 Hepatitis B Vaccines (1 of 3 - 19+ 3-dose series) 07/02/1986 Zoster Vaccines (1 of 2) 07/02/2017 SDOH Screening 01/28/2024 01/27/2023 Depression Screening 10/05/2024 10/06/2023, 10/06/2023 COVID-19 Vaccine (1 - 2023-2 5 season) 2024 Influenza Vaccine (#1) 2024 Pneumococcal Vaccine: 50+ Years (1 of 1 - PCV) 08/26/2025 Postponed from 07/02/2017 (Patient Refused) Tobacco Screening 11/18/2025 11/18/2024 Colonoscopy 11/26/2027 11/25/2022 Colorectal Cancer Screening 11/26/2027 [...] Procedure Name Priority Date/Time Associated Diagnosis Comments PSA, TOTAL Routine 01/11/2025 2:46 PM EDT HEMATOCRIT Routine 01/11/2025 2:46 PM EDT HEMOGLOBIN Routine 01/11/2025 2:46 PM EDT OCT, RETINA - OU - BOTH EYES Routine 11/08/2024 2:30 PM EDT Nonexudative age-related macular degeneration, bilateral, intermediate dry stage US ABDOMEN COMPLETE Routine 10/15/2024 9 :43 AM EDT Transaminitis LIPID PANEL, STANDARD Routine 07/29/2023 10:47 AM EDT Hypercholesterolemia COLONOSCOPY Routine 11/25/2022 ZZZ HISTORICAL HEPATITIS C AB W/REFL TO HCV RNA, QN, PCR Routine 11/23/2021 10:55 AM EDT from Last 3 Months or Most Recently Relevant to Health Maintenance Results * Hemoglobin (01/11/2025 2:46 PM EDT) Hemoglobin 14.1 14.0 - 18.0 g/dl [facility] 01/11/2025 2:46 PM EDT 01/11/2025 2:46 PM EDT us Generic External Data Provider LAB BLOOD ORDERAB LES Final Result Performing Organization Address [facility]/ZIP Co de Phone Number [facility] [address] [place] [phone] * (ABNORMAL) Hematocrit (01/11/2025 2:46 PM EDT) Pathologist [facility] Hematocrit 40.9(L) 42.0 - 52.0 % [facility] 01/11/2025 2:46 PM EDT 01/11/2025 2:46 PM EDT Generic External Data Provider LAB BLOOD ORDERAB LES Final Result Performing Organization Address [facility] de Phone Number [facility] [address] [place] [phone] * PSA,Total (01/11/2025 2:46 PM EDT) Pathologist [facility] Prostate Specific Antigen 1.45 <0.05 - 4.0 ng/mL [facility] Comment:PSA methodology: Abb merissa Alinity i ChemiluminescentMicroparticle Immunoassay (CMIA) 01/11/2025 2:46 PM EDT 01/11/2025 2:46 PM EDT Generic External Data Provider LAB BLOOD ORDERAB LES Final Result Performing Organization Address [facility] Co de Phone Number [facility] [address] [place] [phone] * OCT, Retina - OU - Both [...] (-) IRF/subretinal fluid (SRF) Grossly stable to 2022 scans. OS: Foveal and parafoveal soft drusen [...] macular degeneration (ARMD). Monitor in 6 months. Kera Reyna OD OPHTH TOMOGRAPHY Final Result * US Abdomen Complete (10/15/2024 9:43 AM EDT) Anatomical Region Laterality Modality Abdomen Ultrasound 10/15/2024 9:43 AM EDT Narrative 10/15/2024 9:45 AM EDT [facility] [address] [place] [address] [place] [address] Ultrasound Report Signed Patient: John Lloyd MR#: [id number] : 1965 Acct:[id number] Age/Sex: 59 / M ADM Date: 10/14/24 Loc: HO.HMGCX Attending Dr: Kirstin Winston MD Ordering Physician: Kirstin Winston MD Date of Service: 10/14/24 Procedure(s): US abdomen complete Accession Number(s): [id number] cc: Kirstin Winston MD CLINICAL HISTORY: Transaminitis [...] in OV> 10/15/2445 DD/ 2 TD/TT: 10/15/24942 Shift Boss: Procedure Note Donotuseinterpreter, Image - 10/15/2024 [facility] [address] [place] [address] [place] [address] Ultrasound Report Signed Patient: Sheyla Lloyd#: [id number] : 1965Acct:[id number] Age/Sex: 59 / MADM Date: 10/14/24 Loc: .HMGCX Attending Dr: Kirstin Winston MD Ordering Physician: Kirstin Winston MD Date of Service: 10/14/24 Procedure(s): US abdomen complete Accession Number(s): [id number] cc: Kirstin Winston MD CLINICAL HISTORY: Transaminitis [...] signed by Iman Ferreira MD in OV> 10/15/24944 DD/ 2 TD/TT: 10/15/24942 Shift Boss: Kirstin Winston MD IMG US PROCEDURES Edited Re sult - Final * Lipid Panel, Standard (07/29/2023 10:47 AM EDT) Triglycerides 60 <150 mg/dL [facility] Comment:Desirable Triglyceri de: less than 150 mg/dLBorderline High Triglyceride 150-199 mg/dLHigh Triglyceride: 200-499 mg/dLVery High Triglyceride: greater than or equal to 5OO mg/dL Cholesterol 154 <200 mg/dL [facility] Comment:Desirable Cholestero l: less than 200 mg/dLBorderline High Cholesterol: 200-239 mg/dLHigh Cholesterol: greater than 239 mg/dL LDL Cholesterol Calculated 84 <100 mg/dL [facility] Comment:Desirable LDL: less than 100 mg/dLNear Optimal/Above Optimal LDL: 110- 129 mg/dLBorderline High LDL: 130-159 mg/dLHigh LDL: 160-189 mg/dLVery High LDL: greater than or equal to 190 mg/dL HDL Cholesterol 58 >40 mg/dL [facility] Comment:Desirable HDL: great er than 40 mg/dL Note: This HDL assay may give artificially low results in patients with liver disease. Blood Venous blood specimen / Unknown 07/29/2023 10:47 AM EDT 07/29/2023 2:17 PM EDT us Kirstin Winston MD LAB BLOOD ORDERABLES Final Result [facility] [address] [place] [phone] [phone] * HEPATITIS C AB W/REFL TO HCV RNA, QN, PCR (11/23/2021 10:55 AM EDT) HEPATITIS C ANTIBODY NON-REACT ANGELITA NON-REACT ANGELITA [facility] INDEX 0.10 <1.00 [facility] Comment: HCV antibody was non-reactive. There is no laboratory evidence of HCV infection. In most cases, no further action is required. However, if recent HCV exposure is suspected, a test for HCV RNA (test code 30662) is suggested. For additional information please refer to http://education.BBE/faq/CNS74j3 (This link is being provided for informational/ educational purposes only.) 11/23/2021 10:5 5 AM EDT us Kirstin Winston MD HISTORICAL/NON ORDERABLE LA BS Final Result Performing Organization Address City/[facility]/ZIP Co de Phone Number [facility] [address] from Last 3 Months or Most Recently Relevant to Health Maintenance Insurance [facility] < [address] [place]ARNER [id number] Care Teams Assistant Strength Coach Relationship Specialty Start Date End Date Kirstin Winston MD [address] [place] [phone] PCP - General Internal Medicine 12/18/11
--- OUTSIDE RECORDS SUMMARY | 2025-01-11 17:56 | XMS_ITS | Encounter Summary ---
Author Organization [employer] Address [address] [facility] 7t [place] [address] Care Team Providers Care Cloth Folder Machine Name Role Phone Kirstin Winston MD Primary Care Provider [phone] Encounter Details Date Type Department Care Team (Late st Contact Info) Description 09/13/2024 Orders Only [facility] MED & PEDS [address] [place], [place] [phone] Kirstin Winston MD [address] [place] [address] Other male erectile dysfunction (Primary Dx) Social History Tobacco Use Types Packs/Day Years Used Date Smoking Tobacco: Former Cigarettes Q uit: 2019 Smokeless Tobacco: Never Depression Answer Date Recorded Patient Health Questionnaire-9 [...] Orientation Straight 02/04/2022 10 :22 AM EDT documented as of this encounter Plan of Treatment Not on file documented as of this encounter Procedures Procedure Name Priority Date/Time Associated Diagnosis Comments TESTOSTERONE, FREE (DIALYSIS) AND TOTAL,MS Routine 09/28/2024 1:57 PM EDT Other male erectile dysfunction documented in this encounter Results * Testosterone, Free (Dialysis) And Total, MS (09/28/2024 1:57 PM EDT) Testosterone, Total 324 250 - 1100 ng/dL [facility] Comment:For additional infor mation, please refer tohttp://education.[employer]/faq/GkjqoFrhlfhbqnqjxVWGGSRNCP227(This link is being provided for informational/educational purposes only.)This test was developed and its analytical performancecharacteristics have been determined by [employer]. It hasnot been cleared or approved by the U.S. Food and DrugAdministration. This assay has been validated pursuantto the CLIA regulations and is used for clinicalpurposes. Testosterone, Free 39.9 35.0 - 155.0 pg/mL [facility] Comment:This test was develo ped and its analytical performancecharacteristics have been determined by [employer] [place], [place]. It hasnot been cleared or approved by the U.S. Food and DrugAdministration. This assay has been validated pursuantto the CLIA regulations and is used for clinicalpurposes.THIS TEST WAS PERFORMED AT:[employer] [id number] [place] [id number] VOGT MD,PHD Blood Venous blood specimen / Unknown 09/28/2024 1:57 PM EDT 09/28/2024 4:10 PM EDT us Kirstin Winston MD LAB BLOOD ORDERABLES Final Result [facility] [address] [place] [phone] documented in this encounter Visit Diagnoses Diagnosis Other male erectile dysfunction- Primary documented in this encounter Additional Health Concerns Assessment Noted Time PHQ-9 Depression Total Score: 5 10/06/19 24 4:30 PM EDT documented as of this encounter Care Teams Cloth Folder Machine Relationship Specialty Start Date End Date Kirstin Winston MD [address] [place] [phone] PCP - General Internal Medicine 12/18/11 documented as of this encounter
--- OUTSIDE RECORDS SUMMARY | 2025-01-11 17:56 | XMS_ITS | Encounter Summary ---
Author Organization [employer] Address [address] [facility] 7t [place] [address] Care Team Providers Care Child Care Worker Name Role Phone Kirstin Winston MD Primary Care Provider [phone] Encounter Details Date Type Department Care Team (Late st Contact Info) Description 03/07/2023 Orders Only [facility] CH[facility] MED & PEDS [address] [place], [place] [phone] Kirstin Winston MD [address] [place] [address] Social History Tobacco Use Types Packs/Day Years Used Date Smoking Tobacco: Former Cigarettes Q uit: 2019 Smokeless Tobacco: Never Depression Answer Date Recorded Patient Health Questionnaire-9 Score 6 12/19/2022 Housing Stability Answer Date Recorded What is [...] Answer Date Recorded Patient Health Questionnaire-2 Score 1 12/19/2022 Sex and Gender Information Value Date Recorded Sex Assigned at Male 02/04/2022 10:22 AM EDT Legal Sex Male 10:22 AM EDT Gender Identity Male 02/04/2022 10:22 AM EDT Sexual Orientation Straight 02/04/2022 10 :22 AM EDT documented as of this encounter Plan of Treatment Not on file documented as of this encounter Visit Diagnoses Not on filedocumented in this encounter Additional Health Concerns Assessment Noted Time PHQ-9 Depression Total Score: 6 12/20/19 23 2:39 PM EDT documented as of this encounter Care Teams Child Care Worker Relationship Specialty Start Date End Date Kirstin Winston MD [address] [place] [phone] PCP - General Internal Medicine 12/18/11 documented as of this encounter
--- OUTSIDE RECORDS SUMMARY | 2025-01-11 17:56 | XMS_ITS | Patient Health Record ---
Author Organization [facility] Address [address] [place] [address] Care Team Providers Care Profiler Name Role Phone Kirstin Winston M.D. Primary Care Provider Un available Krishna Kain Unavailable [phone] Allergies Allergen (clinical drug ingredient) Drug/Non Drug [...] Problem Status W/U Status Risk Notes Problem 518537495 Colon cancer screening (Z12.11) Active confirmed Problem 790696987 Blood in stool (K92.1) Active confirmed Problem 653574820456014 Pre-procedural examination (Z01.818) Active confirmed Problem Diverticulosis of colon (568552028) Diverticulosis of colon (K57.30) Active confirmed Plan Of Treatment Future Test Test Name Order Date COLONOSCOPY 09/10/2022 Insurance Providers Payer Name Payer Address Payer Phone Subscriber Number Group Number Insured Name Patient Relationship to Insured Coverage Start Date Coverage End Date MEDICARE OF [place] [address] [place] [id number] [phone] [id number] SHEILA ATKINS Self - patient is the insured MEDICAID OF [facility] [address] [place] [phone] [id number] SHEILA ATKINS Self - patient is the insured Medical (General) History Medical History History ICD Code Hypertension Hyperlipidemia Denies [place],DM,CVA,Lung disease,renal dise ase 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 Macular degeneration Surgical History Surgery Date(Month/Year) Tonsils
--- OUTSIDE RECORDS SUMMARY | 2025-01-11 17:56 | XMS_ITS | Encounter Summary ---
Author Organization [employer] Address [address] [facility] 7t [place] [address] Care Team Providers Care Pharmacy Resident Name Role Phone Kirstin Winston MD Primary Care Provider [phone] Encounter Details Date Type Department Care Team (Late st Contact Info) Description 01/11/2025 Orders Only GENERIC EXTERNAL DATA DEPARTMENT Provider, Generic External Data Social History Tobacco Use Types Packs/Day Years [...] Procedure Name Priority Date/Time Associated Diagnosis Comments HEMOGLOBIN Routine 01/11/2025 2:46 PM EDT HEMATOCRIT Routine 01/11/2025 2:46 PM EDT PSA, TOTAL Routine 01/11/2025 2:46 PM EDT documented in this encounter Results * PSA,Total (01/11/2025 2:46 PM EDT) Prostate Specific Antigen 1.45 <0.05 - 4.0 ng/mL [facility] Comment:PSA methodology: Fabiola Hernandez i ChemiluminescentMicroparticle Immunoassay (CMIA) 01/11/2025 2:46 PM EDT 01/11/2025 2:46 PM EDT us Generic External Data Provider LAB BLOOD ORDERAB LES Final Result Performing Organization Address [facility] Co de Phone Number [facility] [address] [place] [phone] * (ABNORMAL) Hematocrit (01/11/2025 2:46 PM EDT) Hematocrit 40.9(L) 42.0 - 52.0 % [facility] 01/11/2025 2:46 PM EDT 01/11/2025 2:46 PM EDT us Generic External Data Provider LAB BLOOD ORDERAB LES Final Result Performing Organization Address City/[facility]/ZIP Co de Phone Number [facility] [address] [place] [phone] * Hemoglobin (01/11/2025 2:46 PM EDT) Hemoglobin 14.1 14.0 - 18.0 g/dl [facility] 01/11/2025 2:46 PM EDT 01/11/2025 2:46 PM EDT us Generic External Data Provider LAB BLOOD ORDERAB LES Final Result [facility] [address] [place] [phone] documented in this encounter Visit Diagnoses Not on filedocumented in this encounter Additional Health Concerns Assessment Noted Time PHQ-9 Depression Total Score: 5 10/06/19 24 4:30 PM EDT documented as of this encounter Care Teams Pharmacy Resident Relationship Specialty Start Date End Date Kirstin Winston MD [address] [place] [phone] PCP - General Internal Medicine 12/18/11 documented as of this encounter
--- OUTSIDE RECORDS SUMMARY | 2025-01-11 17:56 | XMS_ITS | Encounter Summary ---
Author Organization [email or web address] Address [address] [place] [address] Care Team Providers Care Senior Asset Manager Name Role Phone Kirstin Winston MD Primary Care Provider [phone] Encounter Details Date Type Department Care Team (Late st Contact Info) Description 11/12/2022 Orders Only [facility] MED [facility] PEDS [address] [place], [place] [phone] Filomena Paulson LPN Social History Tobacco Use Types Packs/Day Years Used Date Smoking Tobacco: Never Assessed Sex and Gender Information Value Date Recorded Sex Assigned at Male 02/04/2022 10:22 AM EDT Legal Sex Male 10:22 AM EDT Gender Identity Male 02/04/2022 10:22 AM EDT Sexual Orientation Straight 02/04/2022 10 :22 AM EDT documented as of this encounter Plan of Treatment Not on file documented as of this encounter Procedures Procedure Name Priority Date/Time Associated Diagnosis Comments BASIC METABOLIC PANEL, FASTING Routine 03/06/2023 10:09 AM EST HEMATOXYLIN AND EOSIN STAIN Routine 11/25/2022 12:29 PM EDT documented in this encounter Results * (ABNORMAL) Basic Metabolic Panel, Fasting (03/06/2023 10:09 AM EST) Sodium 140 135 - 145 mmol/L [facility] Potassium 3.6 3.3 - 5.1 mmol/L [facility] Chloride 105 96 - 108 mmol/L [facility] Carbon Dioxide 27 22 - 29 mmol/L [facility] Anion Gap 12 12 - 20 [facility] Urea Nitrogen (BUN) 18(H) 9 - 16 mg/dL [facility] Creatinine, Serum 0.94 0.5 - 1.4 mg/dL [facility] Estimated Glomerular Filt Rate >60 [facility] Comment:NOTE: For -Am erican individuals, multiply the result by 1.210.Chronic Kidney Disease: Estimated GFR < 60 mL/min/1.57v3Wltnbl Kidney Disease: Estimated GFR < 15 mL/min/1.73m2 Glucose Fasting 86 60 - 99 mg/dL [facility] Calcium 9.5 8.4 - 10.2 mg/dL [facility] 03/06/2023 10:0 9 AM EST 03/06/2023 2:16 PM EST us Kirstin Winston MD LAB BLOOD ORDERABLES Final Result [facility] [address] [place] [phone] * Hematoxylin and Eosin Stain (11/25/2022 12:29 PM EDT) 11/25/2022 12:2 9 PM EDT 11/25/2022 1:15 PM EDT William [facility] - 11/26/2022 12:50 PM EDT ----- ------- Name: John Lloyd Age/Sex: 57/M : 1965 Unit#: [id number] Attend Dr: Kain Krishna Re11/25/22 Status: [facility] Location: [facility] Disch: ----- ------- SPEC : [id number] RECD: 11/25/22 STATUS: EDWINA LEONARD NUM: [id number] ADRIANA: 11/25/229 [facility] DR: Kain Krishna ENTERED: 11/25/22 SP TYPE: Surgical OTHR DR: Kirstin Winston MD ORDERED: HE Stain/9, Gross Micro L4/2 Diagnosis A. Colon, ascending, 2 polyps: Tubular adenomas (multiple pieces involved); negative for high-grade dysplasia and carcinoma. B. Colon, at 60 cm, polyp: Tubular adenoma, likely excised; negative for high-grade dysplasia and carcinoma. C. Colon, at 30 cm, polyp: Tubular adenoma, likely excised; negative for high-grade dysplasia and carcinoma. Clinical History Pre-Op Dx: Screening Post-Op Dx: Colon polyps, diverticulosis, hemorrhoids Microscopic Description Microscopic sections reviewed. Material Received A. Ascending colon polyps (2) B. Polyp @ 60 cm C. Polyp @ 30 cm Gross Description Received in 3 parts. Part A: Received in formalin labeled ascending colon polyps are 6 glistening, semitranslucent, soft, varner irregular and papular tissue fragments ranging from 0.2-0.45 cm in greatest dimension which are submitted in toto in a single cassette labeled A. Part B: Received in formalin labeled polyp at 60 cm is a 0.7 cm in greatest dimension glistening, semitranslucent, soft, varner-pink papular tissue fragment which is bisected and entirely submitted in a single cassette labeled B. Part C: Received in formalin labeled polyp at 30 is a 0.6 cm in greatest dimension congested and hemorrhagic, red-maroon papular tissue fragment which is bisected and entirely submitted in a single cassette labeled C. CEDS CONTINUED ON NEXT PAGE ----- ------- Name: John lLoyd Age/Sex: 57/M : 1965 Unit#: [id number] Attend Dr: Kain Krishna Re11/25/22 Status: [facility] Location: [facility] Disch: ----- ------- SPEC : [id number] RECD: 11/25/22-1315 STATUS: EDWINA LEONARD NUM: [id number] ADRIANA: 11/25/22-1229 [facility] [address]: Kain Krishna ENTERED: 11/25/22-1323 SP TYPE: Surgical OTHR DR: Kirstin Winston MD ORDERED: ANDERSON Stain/9, Gross Micro L4/2 Copies To: Kirstin Winston MD [address] [place] [address] Kain Krishna [address] [place] [address] [address] [place] [id number] ----- ------- Signed (signature on file) Gerri Eugene 11/26/22 1250 ----- ------- END OF REPORT [facility] External Provider LAB BLO OD ORDERABLES Final Result [facility] [address] [place] [phone] documented in this encounter Visit Diagnoses Not on filedocumented in this encounter Care Teams Senior Asset Manager Relationship Specialty Start Date End Date Kirstin Winston MD [address] [place] [phone] PCP - General Internal Medicine 12/18/11 documented as of this encounter
[2025-01-18 16:58] LABS: Testosterone, Free 122.2 pg/mL (35.0-155.0)
== END 2025-01-11 14:33 | disposition home or self-care (01) ==
LOC: HO.LAB 14:32
PROVIDERS: Absent Provider Psychiatry & Neurology Neurology; PCP Internal Medicine; Visit Provider Internal Medicine Endocrinology, Diabetes & Metabolism
DX: Z12.5 Encounter for screening for malignant neoplasm of prostate (principal); E29.1 Testicular hypofunction
CPT/HCPCS: 36415; 84153; 84402; 84403; 85014; 85018

== ENCOUNTER 2025-01-18 14:33 | Outpatient (REF) | payer OTHER, SELFPAY ==
[2025-01-18 16:54] LABS: Alanine Aminotransferase 21 U/L (0-40); Albumin Level 4.9 g/dL (3.5-5.0); Alkaline Phosphatase 62 U/L (39-117); Aspartate Amino Transferase 23 U/L (5-37); Total Protein 7.0 g/dL (6.5-8.0)
--- OUTSIDE RECORDS SUMMARY | 2025-01-18 17:27 | XMS_ITS | Encounter Summary ---
Author Organization [employer] Address [address] [facility] 7t [place] [address] Care Team Providers Care Craft Artist Name Role Phone Kirstin Winston MD Primary Care Provider [phone] Encounter Details Date Type Department Care Team (Late st Contact Info) Description 03/07/2023 Orders Only [facility] MED & PEDS [address] [place], [place] [phone] Kirstin Winston MD [address] [place] [address] Social History Tobacco Use Types Packs/Day Years [...] documented as of this encounter Care Teams Craft Artist Relationship Specialty Start Date End Date Kirstin Winston MD [address] [place] [phone] PCP - General Internal Medicine 12/18/11 documented as of this encounter
--- OUTSIDE RECORDS SUMMARY | 2025-01-18 17:27 | XMS_ITS | Patient Health Record ---
Author Organization [facility] Address [address] [place] [address] Care Team Providers Care Rack Pusher Name Role Phone Kirstin Winston M.D. Primary Care Provider Un available Krishna Kain Unavailable [phone] Allergies Allergen (clinical drug ingredient) Drug/Non Drug Allergy documented on EMR Reaction Allergy Type Onset Date Status Penicillin Unknown Drug Allergy Active Reason For Referral No Information Medications Medication SIG (Take, Route, Frequency, Duration) Notes Start Date End Date Status Loratadine 10 MG TAKE 1 TABLET BY DENIA TH EVERY DAY Oral; Duration: 90 Active Baclofen 5 MG TAKE 1 TABLET BY DENIA TH TWICE A DAY Oral; Duration: 90 Active Atenolol 50 MG Oral; Duration: 90 Active Rosuvastatin Calcium 20 MG Oral; Duration: 90 Active Vitamin D3 Active Dulcolax (colon prep) 5 MG take at 3:00 p.m and 7:00p.m. Orally two tablets twice a day for one day; Duration: 1 day 09/10/2022 Active MiraLax (colon prep) 17 GM/SCOOP 1 238Gm bottle mixed with Gatorade or Crystal Light Orally begin at 5:00 p.m. the day before the procedure; Duration: 1 day 09/10/2022 Active Problems Problem Type SNOMED Code ICD Code Onset Dates Problem Status W/U Status Risk Notes Problem Colon cancer screening (196463813) Colon cancer screening (Z12.11) Active confirmed Problem Blood in stool (708566021) Blood in stool (K92.1) Active confirmed Problem Pre-procedure evaluation check (693520890) Pre-procedural examination (Z01.818) Active confirmed Problem Diverticulosis of colon (660162729) Diverticulosis of colon (K57.30) Active confirmed Plan Of Treatment Future Test Test Name Order Date COLONOSCOPY 09/10/2022 Insurance Providers Payer Name Payer Address Payer Phone Subscriber Number Group Number Insured Name Patient Relationship to Insured Coverage Start Date Coverage End Date MEDICARE OF [place] [address] [place] [address] [id number] SHEILA ATKINS Self - patient is the insured MEDICAID OF [facility] [address] [place] [address] [id number] SHEILA ATKINS Self - patient is the insured Medical (General) History Medical History History ICD Code Hypertension Hyperlipidemia Denies LA,DM,CVA,Lung disease,renal dise ase 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 Macular degeneration Surgical History Surgery Date(Month/Year) Tonsils
--- OUTSIDE RECORDS SUMMARY | 2025-01-18 17:27 | XMS_ITS | Encounter Summary ---
Author Organization [email or web address] Address 75 [facility] 7 [place] [address] Care Team Providers Care Mulcher Operator Name Role Phone Kirstin Winston MD Primary Care Provider [phone] Reason for Visit * Reason Onset Date Comments Results 01/17/2025 Encounter Details Date Type Department Care Team ([facility] st Contact Info) Description 01/17/2025 Telephone [facility] MEDICINE [address] [place] [address] Kirstin Winston MD 505 [place] [address] Results Social History Tobacco Use Types Packs/Day Years [...] AM EDT documented as of this encounter Miscellaneous Notes * Telephone Encounter - Jimmy Garcia - 01/17/2025 2:46 PM EDT TC from pt requesting call back regarding Results. Type of results: Labs Date when done: 01/11/25 Facility: [facility] Please contact pt at [phone]. documented in this encounter Plan of Treatment Not on file documented as of this encounter Visit Diagnoses Not on filedocumented in this encounter Additional Health Concerns Assessment Noted Time PHQ-9 Depression Total Score: 5 10/06/19 24 4:30 PM EDT documented as of this encounter Care Teams Mulcher Operator Relationship Specialty Start Date End Date Kirstin Winston MD [address] [place] [phone] PCP - General Internal Medicine 12/18/11 documented as of this encounter
--- OUTSIDE RECORDS SUMMARY | 2025-01-18 17:27 | XMS_ITS | Encounter Summary ---
Author Organization [employer] Address 75 [facility] 7 [place] [address] Care Team Providers Care Roadway Designer Name Role Phone Kirstin Winston MD Primary Care Provider [phone] Reason for Visit * Reason Onset Date Comments Lab Orders 01/13/2025 Encounter Details Date Type Department Care Team (Late st Contact Info) Description 01/13/2025 Telephone [facility] MEDICINE [address] [place] [address] Kirstin Winston MD [address] [place] [address] Lab Orders Social History Tobacco Use Types Packs/Day Years [...] encounter Miscellaneous Notes * Telephone Encounter - Heavenly Shen RN - 01/13/2025 3:45 PM EDT Last office visit (telehealth) was 11/18/24. The visit note does not mention labs and there are also no labs ordered. Patient did have labs drawn (ordered by outside provider) on 01/11/25. * Telephone Encounter - Jimmy Garcia - 01/13/2025 12:27 PM EDT Tc from pt requesting a call back regarding labs. Pt states he was supposed to have blood work drawn via pcp but pt was informed that there is no active blood work for him to have drawn. Please contact pt at [phone]. documented in this encounter Plan of Treatment Not on file documented as of this encounter Visit Diagnoses Not on filedocumented in this encounter Additional Health Concerns Assessment Noted Time PHQ-9 Depression Total Score: 5 10/06/19 24 4:30 PM EDT documented as of this encounter Care Teams Roadway Designer Relationship Specialty Start Date End Date Kirstin Winston MD [address] [place] [address] PCP - General Internal Medicine 12/18/11 documented as of this encounter
--- OUTSIDE RECORDS SUMMARY | 2025-01-18 17:27 | XMS_ITS | Clinical Summary ---
Author Organization [email or web address] Address 75 [facility] 7t [place] [address] Care Team Providers Care Manager Qa Name Role Phone Kirstin Winston MD Primary Care Provider [phone] Allergies Active Allergy Reactions Criticality Noted Date Comments Penicillin G Other 12/19/2022 Nausea Medications loratadine (Claritin) 10 MG tabletIndications :Seasonal allergies TAKE 1 TABLET BY MOUTH EVERY DAY 90 tablet 3 Active rosuvastatin (Crestor) 20 MG tabletIndications :Hypercholesterol emia TAKE 1 TABLET BY MOUTH EVERYDAY AT BEDTIME 90 tablet 4 Active atenolol (Tenormin) 50 MG tabletIndications :Essential hypertension,Trem or Take 1 tablet (50 mg) by mouth 2 times daily. 60 tablet 2 5 Active amLODIPine (Norvasc) 5 MG tabletIndications :Essential hypertension TAKE 1 TABLET BY MOUTH EVERY DAY IN THE MORNING 90 tablet 3 5 Active Active Problems Problem Noted Date Diagnosed Date Hypercholesterolemia 03/20/2023 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 Age-related macular degeneration 07/16/2019 Hemorrhage of rectum and anus 12/17/2008 Essential hypertension 12/18/2007 Encounters Date Type Department Care Team Description 01/17/2025 Telephone [facility] MEDICINE [address] [place], [place] [phone] Kirstin Winston MD Results 01/13/2025 Telephone [facility] MEDICINE [address] [place] [address] Kirstin Winston MD Lab Orders 01/11/2025 Orders Only GENERIC EXTERNAL DATA DEPARTMENT Provider, Generic External Data 12/13/2024 Refill [facility] MED & PEDS [address] [place] [address] Kirstin Winston MD Essential hypertension 11/18/2024 3:15 PM EDT Telemedicine [facility] MED & PEDS [address] [place] [address] Kirstin Winston MD Essential hypertension (Primary Dx); Transaminitis; Tremor; Cerebellar ataxia (CMS/HCC) 11/18/2024 Travel 11/08/2024 2:30 PM EDT Office Visit [facility] OPTOMETRY [address] [place] [address] Kera Reyna, REBEL Nonexudative age-related macular degeneration, bilateral, intermediate dry stage (Primary Dx); Combined forms of age-related cataract of both eyes; Presbyopia 11/08/2024 Travel 10/21/2024 11:15 AM EDT Office Visit [facility] MED & PEDS [address] [place] [address] Kirstin Winston MD Essential hypertension (Primary Dx); [...] your housing situation today? I have rosa gohtra 01/24/[address] you li [...] enough money to get more: Often true 10/ Transportation Answer Date Recorded In the past [...] Procedure Name Priority Date/Time Associated Diagnosis Comments HEPATIC FUNCTION PANEL Routine 01/18/2025 2:39 PM EDT Transaminitis TESTOSTERONE, FREE (DIALYSIS) AND TOTAL,MS Routine 01/11/2025 2:46 PM EDT PSA, TOTAL Routine 01/11/2025 2:46 PM EDT HEMATOCRIT Routine 01/11/2025 2:46 PM EDT HEMOGLOBIN Routine 01/11/2025 2:46 PM EDT OCT, RETINA - OU - BOTH EYES Routine 11/08/2024 2:30 PM EDT Nonexudative age-related macular degeneration, bilateral, intermediate dry stage LIPID PANEL, STANDARD Routine 07/29/2023 10:47 AM EDT Hypercholesterolemia COLONOSCOPY Routine 11/25/2022 ZZZ HISTORICAL HEPATITIS C AB W/REFL TO HCV RNA, QN, PCR Routine 11/23/2021 10:55 AM EDT from Last 3 Months or Most Recently Relevant to Health Maintenance Results * Hepatic Function Panel (01/18/2025 2:39 PM EDT) Bilirubin, Total 0.7 0.0 - 1.0 mg/dL [facility] Bilirubin, Direct 0.2 0.0 - 0.5 mg/dL [facility] Aspartate Amino Transferase 23 5 - 37 U/L [facility] Alanine Aminotransferase 21 0 - 40 U/L [facility] Total Protein 7.0 6.5 - 8.0 g/dL [facility] Albumin Level 4.9 3.5 - 5.0 g/dL [facility] Alkaline Phosphatase 62 39 - 117 U/L [facility] Blood Venous blood specimen / Unknown 01/18/2025 2:39 PM EDT 01/18/2025 4:09 PM EDT us Kirstin Winston MD LAB BLOOD ORDERABLES Final Result Performing Organization Address [facility]/ZIP Co de Phone Number [facility] [address] [place] [phone] * Hemoglobin (01/11/2025 2:46 PM EDT) Hemoglobin 14.1 14.0 - 18.0 g/dl [facility] 01/11/2025 2:46 PM EDT 01/11/2025 2:46 PM EDT us Generic External Data Provider LAB BLOOD ORDERAB LES Final Result Performing Organization Address City/[facility] Co de Phone Number [facility] [address] [place] [phone] * (ABNORMAL) Hematocrit (01/11/2025 2:46 PM EDT) Hematocrit 40.9(L) 42.0 - 52.0 % [facility] 01/11/2025 2:46 PM EDT 01/11/2025 2:46 PM EDT us Generic External Data Provider LAB BLOOD ORDERAB LES Final Result [facility] [address] [place] [phone] * Testosterone, Free (Dialysis) And Total, MS (01/11/2025 2:46 PM EDT) Testosterone, Total 745 250 - 1100 ng/dL [facility] Comment:For additional infor karis, please refer tohttp://education.[employer]/faq/TnrpeTvtcnldijkpxRXXSWHCRQ620(This link is being provided for informational/educational purposes only.)This test was developed and its analytical performancecharacteristics have been determined by [facility] [place], [place]. It hasnot been cleared or approved by the U.S. Food and DrugAdministration. This assay has been validated pursuantto the CLIA regulations and is used for clinicalpurposes. Testosterone, Free 122.2 35.0 - 155.0 pg/mL [facility] Comment:This test was develo ped and its analytical performancecharacteristics have been determined by [facility] [place], [place]. It hasnot been cleared or approved by the U.S. Food and DrugAdministration. This assay has been validated pursuantto the CLIA regulations and is used for clinicalpurposes.THIS TEST WAS PERFORMED AT:[employer] [id number] [place] [address]RJLHDIFKATHERINE VOGT MD,PHD 01/11/2025 2:46 PM EDT 01/11/2025 2:46 PM EDT Generic External Data Provider LAB BLOOD ORDERAB LES Final Result Performing Organization Address [facility] Co de Phone Number [facility] [address] [place] [phone] * PSA,Total (01/11/2025 2:46 PM EDT) Prostate Specific Antigen 1.45 <0.05 - 4.0 ng/mL [facility] Comment:PSA methodology: Fabiola Hernandez i ChemiluminescentMicroparticle Immunoassay (CMIA) 01/11/2025 2:46 PM EDT 01/11/2025 2:46 PM EDT Generic External Data Provider LAB BLOOD ORDERAB LES Final Result Performing Organization Address [facility] Co de Phone Number [facility] [address] [place] [phone] * OCT, Retina - OU - Both Eyes (11/08/2024 2:30 PM EDT) Narrative Kera Reyna, OD - 11/11/2024 10:30 AM EDT Images [...] Reyna OD OPHTH TOMOGRAPHY Final Result * Lipid Panel, Standard (07/29/2023 10:47 AM EDT) Triglycerides 60 <150 mg/dL [facility] Comment:Desirable Triglyceri de: less than 150 mg/dLBorderline High Triglyceride 150-199 mg/dLHigh Triglyceride: 200-499 mg/dLVery High Triglyceride: greater than or equal to 5OO mg/dL Cholesterol 154 <200 mg/dL [facility] Comment:Desirable Cholestero l: less than 200 mg/dLBorderline High Cholesterol: 200-239 mg/dLHigh Cholesterol: greater than 239 mg/dL LDL Cholesterol Calculated 84 <100 mg/dL [facility] Comment:Desirable LDL: less than 100 mg/dLNear Optimal/Above Optimal LDL: 110- 129 mg/dLBorderline High LDL: 130-159 mg/dLHigh LDL: 160-189 mg/dLVery High LDL: greater than or equal to 190 mg/dL HDL Cholesterol 58 >40 mg/dL [facility] Comment:Desirable HDL: great er than 40 mg/dL Note: This HDL assay may give artificially low results in patients with liver disease. Blood Venous blood specimen / Unknown 07/29/2023 10:47 AM EDT 07/29/2023 2:17 PM EDT us Kirstin Winston MD LAB BLOOD ORDERABLES Final Result [facility] [address] [place] [phone] [phone] * HEPATITIS C AB W/REFL TO HCV RNA, QN, PCR (11/23/2021 10:55 AM EDT) HEPATITIS C ANTIBODY NON-REACT ANGELITA NON-REACT ANGELITA [facility] INDEX 0.10 <1.00 [facility] Comment: HCV antibody was non-reactive. There is no laboratory evidence of HCV infection. In most cases, no further action is required. However, if recent HCV exposure is suspected, a test for HCV RNA (test code 66261) is suggested. For additional information please refer to http://[facility].[employer]/faq/FZM58c2 (This link is being provided for informational/ educational purposes only.) 11/23/2021 10:5 5 AM EDT us Kirstin Winston MD HISTORICAL/NON ORDERABLE LA BS Final Result [facility] [address] from Last 3 Months or Most Recently Relevant to Health Maintenance Insurance [facility] ONE CARE < 67 J[place]LYN GARNER [id number] Care Teams Manager Qa Relationship Specialty Start Date End Date Kirstin Winston MD [address] [place] [phone] PCP - General Internal Medicine 12/18/11
--- OUTSIDE RECORDS SUMMARY | 2025-01-18 17:27 | XMS_ITS | Encounter Summary ---
Author Organization [employer] Address [address] [facility] [address] 7t [place] [address] Care Team Providers Care Tripe Finisher Name Role Phone Kirstin Winston MD Primary Care Provider [phone] Encounter Details Date Type Department Care Team (Late st Contact Info) Description 11/12/2022 Orders Only [facility] CH[facility] MED & PEDS [address] [place], [place] [phone] Filomena Paulson LPN Social History Tobacco Use [...] EST) Sodium 140 135 - 145 mmol/L [facility] Potassium 3.6 3.3 - 5.1 mmol/L [facility] Chloride 105 96 - 108 mmol/L [facility] Carbon Dioxide 27 22 - 29 mmol/L [facility] Anion Gap 12 12 - 20 [facility] Urea Nitrogen (BUN) 18(H) 9 - 16 mg/dL [facility] Creatinine, Serum 0.94 0.5 - 1.4 mg/dL [facility] Estimated Glomerular Filt Rate >60 [facility] Comment:NOTE: For -Am erican individuals, multiply the result by 1.210.Chronic Kidney Disease: Estimated GFR < 60 mL/min/1.35r9Zkkoou Kidney Disease: Estimated GFR < 15 mL/min/1.73m2 Glucose Fasting 86 60 - 99 mg/dL [facility] Calcium 9.5 8.4 - 10.2 mg/dL [facility] 03/06/2023 10:0 9 AM EST 03/06/2023 2:16 PM EST us Kirstin Winston MD LAB BLOOD ORDERABLES Final Result [facility] [address] [place] [phone] * Hematoxylin and Eosin Stain (11/25/2022 12:29 PM EDT) 11/25/2022 12:2 9 PM EDT 11/25/2022 1:15 PM EDT William [facility] - 11/26/2022 12:50 PM EDT ----- ------- Name: John Lloyd Age/Sex: 57/M : 1965 Unit#: [id number] Attend Dr: Kain Krishna Re11/25/22 Status: [facility] Location: [facility] Disch: ----- ------- SPEC : [id number] RECD: 11/25/22 STATUS: EDWINA LEONARD NUM: [id number] ADRIANA: 11/25/229 [facility] [address]: Kain Krishna ENTERED: 11/25/22 [...] ON NEXT PAGE ----- ------- Name: John Lloyd Age/Sex: 57/M : 1965 Unit#: [id number] Attend Dr: Kain Krishna Re11/25/22 Status: [facility] Location: [facility] Disch: ----- ------- SPEC : [id number] RECD: 11/25/22-1315 STATUS: EDWINA LEONARD NUM: [id number] ADRIANA: 11/25/22-1229 [facility] [address]: Kain Krishna ENTERED: 11/25/22-1323 SP TYPE: Surgical OTHR DR: Kirstin Winston MD ORDERED: [place] Stain/9, Gross Micro L4/2 Copies To: Kirstin Winston MD [address] [place] [address] Kain Krishna [address] [place] [address] [address] [place] [address] ----- ------- Signed (signature on file) Gerri Eugene 11/26/22 1250 ----- ------- END OF REPORT [facility] External Provider LAB BLO OD ORDERABLES Final Result [facility] [address] [place] [phone] [phone] documented in this encounter Visit Diagnoses Not on filedocumented in this encounter Care Teams Tripe Finisher Relationship Specialty Start Date End Date Kirstin Winston MD [address] [place] [phone] PCP - General Internal Medicine 12/18/11 documented as of this encounter
--- OUTSIDE RECORDS SUMMARY | 2025-01-18 17:27 | XMS_ITS | Encounter Summary ---
Author Organization [employer] Address [address] [facility] 7t [place] [address] Care Team Providers Care Rocket Scientist Name Role Phone Kirstin Winston MD Primary Care Provider [phone] Encounter Details Date Type Department Care Team (Late st Contact Info) Description 09/13/2024 Orders Only [facility] CHC MED & PEDS [address] [place], [place] [phone] Kirstin Winston MD [address] [place] [address] Other male erectile dysfunction (Primary Dx) Social [...] Testosterone, Total 324 250 - 1100 ng/dL [facility] Comment:For additional infor mation, please refer tohttp://education.[employer]/faq/HpfmnSejkgwpbzqsnAYZBZDQLE963(This link is being provided for informational/educational purposes only.)This test was developed and its analytical performancecharacteristics have been determined by [employer] [place]. It hasnot been cleared or approved by the U.S. Food and DrugAdministration. This assay has been validated pursuantto the CLIA regulations and is used for clinicalpurposes. Testosterone, Free 39.9 35.0 - 155.0 pg/mL [facility] Comment:This test was develo ped and its analytical performancecharacteristics have been determined by [employer] [place], [place]. It hasnot been cleared or approved by the U.S. Food and DrugAdministration. This assay has been validated pursuantto the CLIA regulations and is used for clinicalpurposes.THIS TEST WAS PERFORMED AT:[facility] [id number] [place] [address]SYDISYWKATHERINE VOGT MD,PHD Blood Venous blood specimen / Unknown 09/28/2024 1:57 PM EDT 09/28/2024 4:10 PM EDT us Kirstin Winston MD LAB BLOOD ORDERABLES Final Result [facility] [address] [place] [phone] documented in this encounter Visit Diagnoses Diagnosis Other male erectile dysfunction- Primary documented in this encounter Additional Health Concerns Assessment Noted Time PHQ-9 Depression Total Score: 5 10/06/19 24 4:30 PM EDT documented as of this encounter Care Teams Rocket Scientist Relationship Specialty Start Date End Date Kirstin Winston MD [address] [place] [phone] PCP - General Internal Medicine 12/18/11 documented as of this encounter
== END 2025-01-18 14:34 | disposition home or self-care (01) ==
LOC: HO.HHCL 14:33
PROVIDERS: PCP Internal Medicine; Referring Provider Internal Medicine Endocrinology, Diabetes & Metabolism; Visit Provider Psychiatry & Neurology Neurology
DX: R74.01 Elevation of levels of liver transaminase levels (principal); G96.9 Disorder of central nervous system, unspecified; R25.1 Tremor, unspecified
CPT/HCPCS: 36415; 80076; 82390

== ENCOUNTER 2025-01-20 14:48 | Outpatient (AMB) | payer OTHER, SELFPAY ==
[2025-01-20 14:51] VITALS: BP 132/74; PULSE 67; O2SAT 97; BMI 24.3
--- NOTE | 2025-01-20 14:51 | A.OFFVIS_ITS ---
Vital Signs 01/20/25 14:51 Height 5 ft 4.13 in Weight 141 lb 15.643 oz BMI 24.3 BP 132/74 Blood Pressure Location Lt brachial Position Sitting Pulse 67 Pulse Source Pulse Oximeter Pulse Oximetry (%) 97 Oxygen Delivery Method Room Air Intake Visit Reasons: Hypogonadism Intake Note: Patient presents for hypogonadism. Allergies Penicillins Allergy (Unknown, Verified 01/20/25 14:58) Unknown Medication List - Last Reconciled 01/20/25 by Kain Duran MD amlodipine 5 mg PO QAM atenolol 50 mg PO DAILY loratadine 10 mg PO DAILY rosuvastatin 20 mg PO DAILY testosterone (AndroGel) 2 pumps topical DAILY HPI Comments Details: The patient is a 59-year-old male presenting with low testosterone levels and a ssociated symptoms. The patient reports being diagnosed with low testosterone levels approximately a year ago, without prior endocrinology consultation or testosterone therapy initiation. He experiences erectile dysfunction, particularly noting the absence of morning erections, but maintains some erectile function otherwise. He reports urinary incontinence, describing urgency and incomplete voiding. Additionally, he has observed testicular atrophy and decreased ejaculate volume over time. The patient has noted gynecomastia, with soreness in the left nipple but no discharge which has improved . He has a history of prostate enlargement, though recent examination did not reveal significant enlargement or hardness. There is a suspicion of Klinefelter syndrome due to elevated LH and FSH levels, with a karyotype test planned for confirmation. The patient has a history of osteoporosis and neurological issues affecting the cerebellum, contributing to his mobility challenges. First diagnosed with Hypogonadism 1 yr ago Not Was started on Testosterone supplementation Not Currently using [testosterone]. Currently not achieving spontaneous am erections, and able to achieve erection when desired. Reports low libido. Decreased facial hair and shaving frequency. notices decrease in size or shape of testicles. Denies penile discharge or scrotal tenderness. Denies any history of mumps orchitis. Denies any head trauma. Denies history of ANDER. Not with no children not conceiving Sense of smell intact. Denies headache or visual changes, +gynecomastia with some tenderness - galactorrhea. Denies orthostatic symptoms, weight loss. Denies change in size of hands or feet. Denies hair loss, weight gain, cold intolerance. No History of DVT or PE: No history of marijuana or opoids or recent methadone use Some urgency on urination Labs: PSA CBC Currently on AndroGel 2 pumps daily. [facility] Medical History Cerebellar ataxia Primary testicular hypogonadism Knee ligamentous laxity Macular degeneration HLD (hyperlipidemia) HTN (hypertension) Surgical History Hx of colonoscopy with polypectomy History of tonsillectomy Family History Mother Parkinsons disease H/O: hysterectomy Social History Alcohol intake: current Patient Tobacco Use Status: Former Tobacco user Physical Exam Vital Signs: Last Vital Signs Pulse 67 01/20/25 14:51 BP 132/74 01/20/25 14:51 Pulse Ox 97 01/20/25 14:51 Oxygen Delivery Method Room Air 01/20/25 14:51 BMI result Body Mass Index 24.3 Const Other: There was the absence of eunichoidal proportions. Examination of the chest reveals minimal amount of breast tissue. Rectal examination reveals a normal smooth prostate. Thyroid gland is normal size weighs about 15 g per there were no thyroid nodules palpated Assessment & Plan Assessment & Plan (1) Primary testicular hypogonadism: Code(s): E29.1 - Testicular hypofunction Category: Medical Plan: 1. Hypogonadism The patient presents with symptoms consistent with hypogonadism, including low testosterone levels, erectile dysfunction, and testicular atrophy. He is currently on AndroGel 2 pumps per day 2. Possible Klinefelter syndrome Elevated LH and FSH levels suggest primary testicular failure, raising suspicion for Klinefelter syndrome. Patient did not go for a karyotype testing Orders: Orders Prostate Specific Antigen 6 Months E29.1 - Testicular hypofunction Hematocrit 6 Months E29.1 - Testicular hypofunction Hemoglobin 6 Months E29.1 - Testicular hypofunction Testosterone, Free/Total 6 Months E29.1 - Testicular hypofunction Coding Level of Care Code Est Pt Level 3 (88925) Diagnoses Primary testicular hypogonadism E29.1
--- OUTSIDE RECORDS SUMMARY | 2025-01-20 18:40 | XMS_ITS | Clinical Summary ---
Author Organization [employer] Address [address] [facility] 7t [place] [address] Care Team Providers Care Senior Air Director Name Role Phone Kirstin Winston MD Primary Care Provider [phone] Allergies Active Allergy Reactions Criticality Noted Date [...] Encounters Date Type Department Care Team Description 01/19/2025 Results Follow-Up [facility] MED & PEDS [address] [place] [address] Kirstin Winston MD Hepatic Function Panel 01/17/2025 Telephone [facility] [address] [place] [address] Kirstin Winston MD Results 01/13/2025 Telephone [facility] [address] [place] [address] Kirstin Winston MD Lab Orders 01/11/2025 Orders Only GENERIC EXTERNAL DATA DEPARTMENT Provider, Generic External Data 12/13/2024 Refill [facility] [address] [place] [address] Kirstin Winston MD Essential hypertension 11/18/2024 3:15 PM EDT Telemedicine [facility] MED & PEDS [address] [place] [address] Kirstin Winston MD Essential hypertension (Primary Dx); Transaminitis; Tremor; Cerebellar ataxia (CMS/HCC) 11/18/2024 Travel 11/08/2024 2:30 PM EDT Office Visit [facility] [address] [place] [address] Kera Reyna, OD Nonexudative age-related macular degeneration, bilateral, intermediate dry stage (Primary Dx); Combined forms of age-related cataract of both eyes; Presbyopia 11/08/2024 Travel 10/21/2024 11:15 AM EDT Office Visit [facility] PED[facility] [address] [place] [address] Kirstin Winston MD Essential hypertension (Primary Dx); [...] Bilirubin, Total 0.7 0.0 - 1.0 mg/dL [facility] Bilirubin, Direct 0.2 0.0 - 0.5 mg/dL [facility] Aspartate Amino Transferase 23 5 - 37 U/L [facility] Alanine Aminotransferase 21 0 - 40 U/L [facility] Total Protein 7.0 6.5 - 8.0 g/dL [facility] Albumin Level 4.9 3.5 - 5.0 g/dL [facility] Alkaline Phosphatase 62 39 - 117 U/L [facility] Blood Venous blood specimen / Unknown 01/18/2025 2:39 PM EDT 01/18/2025 4:09 PM EDT us Kirstin Winston MD LAB BLOOD ORDERABLES Final Result [facility] [address] [place], [place] [phone] * Hemoglobin (01/11/2025 2:46 PM EDT) Hemoglobin 14.1 14.0 - 18.0 g/dl [facility] 01/11/2025 2:46 PM EDT 01/11/2025 2:46 PM EDT us Generic External Data Provider LAB BLOOD ORDERAB LES Final Result Performing Organization Address City/[facility]/ZIP Co de Phone Number [facility] [address] [place] [address] [phone] * (ABNORMAL) Hematocrit (01/11/2025 2:46 PM EDT) Hematocrit 40.9(L) 42.0 - 52.0 % [facility] 01/11/2025 2:46 PM EDT 01/11/2025 2:46 PM EDT Generic External Data Provider LAB BLOOD ORDERAB LES Final Result Performing Organization Address [facility] Co de Phone Number [facility] [address] [place] [address] [phone] * Testosterone, Free (Dialysis) And Total, MS (01/11/2025 2:46 PM EDT) Testosterone, Total 745 250 - 1100 ng/dL [facility] Comment:For additional infor matmarnie, please refer tohttp://education.[employer]/faq/VqeloIujulxhdkygcLRLKTOHZU032(This link is being provided for informational/educational purposes only.)This test was developed and its analytical performancecharacteristics have been determined by [employer] [place], [place]. It hasnot been cleared or approved by the U.S. Food and DrugAdministration. This assay has been validated pursuantto the CLIA regulations and is used for clinicalpurposes. Testosterone, Free 122.2 35.0 - 155.0 pg/mL [facility] Comment:This test was develo ped and its analytical performancecharacteristics have been determined by [employer] [place], [place]. It hasnot been cleared or approved by the U.S. Food and DrugAdministration. This assay has been validated pursuantto the CLIA regulations and is used for clinicalpurposes.THIS TEST WAS PERFORMED AT:[id number] [place] [address]MMAJJPEKATHERINE VOGT MD,PHD 01/11/2025 2:4 6 PM EDT 01/11/2025 2:46 PM EDT us Generic External Data Provider LAB BLOOD ORDERAB LES Final Result Performing Organization Address City/[facility]/ZIP Co de Phone Number [facility] [address] [place] [phone] * PSA,Total (01/11/2025 2:46 PM EDT) Prostate Specific Antigen 1.45 <0.05 - 4.0 ng/mL [facility] Comment:PSA methodology: Fabiloa Hernandez i ChemiluminescentMicroparticle Immunoassay (CMIA) 01/11/2025 2:46 PM EDT 01/11/2025 2:46 PM EDT Generic External Data Provider LAB BLOOD ORDERAB LES Final Result Performing Organization Address [facility] de Phone Number [facility] [address] [place] [phone] * OCT, Retina - OU - [...] 10:47 AM EDT) Triglycerides 60 <150 mg/dL [facility] Comment:Desirable Triglyceri de: less than 150 mg/dLBorderline High Triglyceride 150-199 mg/dLHigh Triglyceride: 200-499 mg/dLVery High Triglyceride: greater than or equal to 5OO mg/dL Cholesterol 154 <200 mg/dL [facility] Comment:Desirable Cholestero l: less than 200 mg/dLBorderline High Cholesterol: 200-239 mg/dLHigh Cholesterol: greater than 239 mg/dL LDL Cholesterol Calculated 84 <100 mg/dL [facility] Comment:Desirable LDL: less than 100 mg/dLNear Optimal/Above Optimal LDL: 110- 129 mg/dLBorderline High LDL: 130-159 mg/dLHigh LDL: 160-189 mg/dLVery High LDL: greater than or equal to 190 mg/dL HDL Cholesterol 58 >40 mg/dL [facility] Comment:Desirable HDL: great er than 40 mg/dL Note: This HDL assay may give artificially low results in patients with liver disease. Blood Venous blood specimen / Unknown 07/29/2023 10:47 AM EDT 07/29/2023 2:17 PM EDT us Kirstin Winston MD LAB BLOOD ORDERABLES Final Result [facility] [address] [place] [phone] * HEPATITIS C AB W/REFL TO HCV RNA, QN, PCR (11/23/2021 10:55 AM EDT) HEPATITIS C ANTIBODY NON-REACT ANGELITA NON-REACT ANGELITA [facility] INDEX 0.10 <1.00 [facility] Comment: HCV antibody was non-reactive. There is no laboratory evidence of HCV infection. In most cases, no further action is required. However, if recent HCV exposure is suspected, a test for HCV RNA (test code 30707) is suggested. For additional information please refer to http://[employer]/faq/CHI89y2 (This link is being provided for informational/ educational purposes only.) 11/23/2021 10:5 5 AM EDT us Kirstin Winston MD HISTORICAL/NON ORDERABLE JOSEPH BS Final Result [facility] Anywhere [address] from Last 3 Months or Most Recently Relevant to Health Maintenance Insurance [facility] < 65 JOSLYN GARNER [id number] Care Teams Senior Air Director Relationship Specialty Start Date End Date Kirstin Winston MD [address] [place] [phone] PCP - General Internal Medicine 12/18/11
--- OUTSIDE RECORDS SUMMARY | 2025-01-20 18:41 | XMS_ITS | Encounter Summary ---
Author Organization [employer] Address [address] 7[address] [place] [address] Care Team Providers Care Circus Train Supervisor Name Role Phone Kirstin Winston MD Primary Care Provider [phone] Encounter Details Date Type Department Care Team (Late st Contact Info) Description 11/12/2022 Orders Only [facility] MED & PEDS [address] [place], [place] [phone] Filomena Paulson LPN Social History Tobacco Use [...] EST) Sodium 140 135 - 145 mmol/L [facility] Potassium 3.6 3.3 - 5.1 mmol/L [facility] Chloride 105 96 - 108 mmol/L [facility] Carbon Dioxide 27 22 - 29 mmol/L [facility] Anion Gap 12 12 - 20 [facility] Urea Nitrogen (BUN) 18(H) 9 - 16 mg/dL [facility] Creatinine, Serum 0.94 0.5 - 1.4 mg/dL [facility] Estimated Glomerular Filt Rate >60 [facility] Comment:NOTE: For -Am erican individuals, multiply the result by 1.210.Chronic Kidney Disease: Estimated GFR < 60 mL/min/1.63s0Yebhrj Kidney Disease: Estimated GFR < 15 mL/min/1.73m2 Glucose Fasting 86 60 - 99 mg/dL [facility] Calcium 9.5 8.4 - 10.2 mg/dL [facility] 03/06/2023 10:0 9 AM EST 03/06/2023 2:16 PM EST us Kirstin Winston MD LAB BLOOD ORDERABLES Final Result [facility] [address] [place] [phone] * Hematoxylin and Eosin Stain (11/25/2022 12:29 PM EDT) 11/25/2022 12:2 9 PM EDT 11/25/2022 1:15 PM EDT William [facility] - 11/26/2022 12:50 PM EDT ----- ------- Name: John Lloyd Age/Sex: 57/M : 1965 Unit#: [id number] Attend Dr: Kain Krishna Re11/25/22 Status: [facility] Location: [facility] Disch: ----- ------- SPEC : [id number] RECD: 11/25/22 STATUS: EDWINA LEONARD NUM: [id number] ADRIANA: 11/25/[address] [facility] [address]: Kain Krishna ENTERED: 11/25/22 SP TYPE: [...] John Lloyd Age/Sex: 57/M : 1965 Unit#: [id number] Attend Dr: Kain Krishna Re11/25/22 Status: [facility] Location: [facility] Disch: ----- ------- SPEC : [id number] RECD: 11/25/22-1315 STATUS: EDWINA LEONARD NUM: [id number] ADRIANA: 11/25/22-1229 [facility] [address]: Kain Krishna ENTERED: 11/25/22-1323 SP TYPE: Surgical OTHR DR: Kirstin Winston MD ORDERED: ANDERSON Stain/9, Gross Micro L4/2 Copies To: Kirstin Winston MD [address] [place] [address] Kain Krishna [address] [place] [address] [address] [place] [phone] ----- ------- Signed (signature on file) Gerri Eugene 11/26/22 1250 ----- ------- END OF REPORT [facility] External Provider LAB BLO OD ORDERABLES Final Result [facility] [address] [place] [phone] [phone] documented in this encounter Visit Diagnoses Not on filedocumented in this encounter Care Teams Circus Train Supervisor Relationship Specialty Start Date End Date Kirstin Winston MD [address] [place] [phone] PCP - General Internal Medicine 12/18/11 documented as of this encounter
--- OUTSIDE RECORDS SUMMARY | 2025-01-20 18:41 | XMS_ITS | Encounter Summary ---
Author Organization [employer] Address [address] [facility] 7 [place] [address] Care Team Providers Care Air Cargo Specialist Supervisor Name Role Phone Kirstin Winston MD Primary Care Provider [phone] Encounter Details Date Type Department Care Team ([facility] st Contact Info) Description 01/19/2025 Results Follow-Up [facility] MED & PEDS [address] [place], [place] [phone] Kirstin Winston MD [address] [place] [address] Hepatic Function Panel Social History Tobacco Use Types Packs/Day Years [...] documented as of this encounter Care Teams Air Cargo Specialist Supervisor Relationship Specialty Start Date End Date Kirstin Winston MD [address] [place] [address] PCP - General Internal Medicine 12/18/11 documented as of this encounter
--- OUTSIDE RECORDS SUMMARY | 2025-01-20 18:41 | XMS_ITS | Patient Health Record ---
Author Organization [facility] Address [address] [place] [address] Care Team Providers Care Adjunct Trainer Name Role Phone Kirstin Winston M.D. Primary Care Provider Un available Krishna Kain Unavailable [phone] Allergies Allergen (clinical drug ingredient) Drug/Non Drug [...] Status Risk Notes Problem Colon cancer screening (945940972) Colon cancer screening (Z12.11) Active confirmed Problem Blood in stool (476708541) Blood in stool (K92.1) Active confirmed Problem Pre-procedure evaluation check (957013940) Pre-procedural examination (Z01.818) Active confirmed Problem Diverticulosis of colon (074478789) Diverticulosis of colon (K57.30) Active confirmed Plan Of Treatment Future Test Test Name Order Date COLONOSCOPY 09/10/2022 Insurance Providers Payer Name Payer Address Payer Phone Subscriber Number Group Number Insured Name Patient Relationship to Insured Coverage Start Date Coverage End Date MEDICARE OF [place] [address] [place] [address] [phone] [id number] SHEILA ATKINS Self - patient is the insured MEDICAID OF [facility] [address] [place] [address] [id number] SHEILA ATKINS Self - patient is the insured Medical (General) History Medical History History ICD Code Hypertension Hyperlipidemia Denies NH,DM,CVA,Lung disease,renal dise ase 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 Macular degeneration Surgical History Surgery Date(Month/Year) Tonsils
--- OUTSIDE RECORDS SUMMARY | 2025-01-20 18:41 | XMS_ITS | Encounter Summary ---
Author Organization [employer] Address [address] [facility] 7 [place] [address] Care Team Providers Care Guide Cruise Name Role Phone Kirstin Winston MD Primary Care Provider [phone] Encounter Details Date Type Department Care Team (Late st Contact Info) Description 09/13/2024 Orders Only [facility] MED & PEDS [address] [place], [place] [phone] Kirstin Winston MD [address] [place] [address] Other male erectile dysfunction (Primary Dx) Social [...] Testosterone, Total 324 250 - 1100 ng/dL [facility] Comment:For additional infor mation, please refer tohttp://education.[employer]/faq/YqqjzBxuxhbufqrziSMHAYSJYN877(This link is being provided for informational/educational purposes only.)This test was developed and its analytical performancecharacteristics have been determined by [employer] [place]. It hasnot been cleared or approved by the U.S. Food and DrugAdministration. This assay has been validated pursuantto the CLIA regulations and is used for clinicalpurposes. Testosterone, Free 39.9 35.0 - 155.0 pg/mL [facility] Comment:This test was develo ped and its analytical performancecharacteristics have been determined by [employer] [place], [place]. It hasnot been cleared or approved by the U.S. Food and DrugAdministration. This assay has been validated pursuantto the CLIA regulations and is used for clinicalpurposes.THIS TEST WAS PERFORMED AT:[employer] [id number] [place] [address]OOVQFGVKATHERINE VOGT MD,PHD Blood Venous blood specimen / Unknown 09/28/2024 1:57 PM EDT 09/28/2024 4:10 PM EDT us Kirstin Winston MD LAB BLOOD ORDERABLES Final Result [facility] [address] [place] [phone] documented in this encounter Visit Diagnoses Diagnosis Other male erectile dysfunction- Primary documented in this encounter Additional Health Concerns Assessment Noted Time PHQ-9 Depression Total Score: 5 10/06/19 24 4:30 PM EDT documented as of this encounter Care Teams Guide Cruise Relationship Specialty Start Date End Date Kirstin Winston MD [address] [place] [phone] PCP - General Internal Medicine 12/18/11 documented as of this encounter
--- OUTSIDE RECORDS SUMMARY | 2025-01-20 18:41 | XMS_ITS | Encounter Summary ---
Author Organization [employer] Address [address] [facility] [address] [place] [address] Care Team Providers Care Engraver Apprentice Decorative Name Role Phone Kirstin Winston MD Primary Care Provider [phone] Reason for Visit * Reason Onset Date Comments Results 01/17/2025 Encounter Details Date Type Department Care Team ([facility] st Contact Info) Description 01/17/2025 Telephone [facility] MEDICINE [address] [place] [address] Kirstin Winston MD [address] [place] [address] Results Social History Tobacco Use Types Packs/Day [...] results: Labs Date when done: 01/11/25 Facility: [facility] Labs Please contact pt at [phone]. documented in this encounter Plan of Treatment Not on file documented as of this encounter Visit Diagnoses Not on filedocumented in this encounter Additional Health Concerns Assessment Noted Time PHQ-9 Depression Total Score: 5 10/06/19 24 4:30 PM EDT documented as of this encounter Care Teams Engraver Apprentice Decorative Relationship Specialty Start Date End Date Kirstin Winston MD [address] [place] [phone] PCP - General Internal Medicine 12/18/11 documented as of this encounter
--- OUTSIDE RECORDS SUMMARY | 2025-01-20 18:41 | XMS_ITS | Encounter Summary ---
Author Organization [employer] Address [address] [facility] [address]t [place] [address] Care Team Providers Care Customer Service Engineer Name Role Phone Kirstin Winston MD Primary Care Provider [phone] Encounter Details Date Type Department Care Team (Late st Contact Info) Description 03/07/[address] [facility] MED & PEDS [address] [place], [place] [phone] Kirstin Winston MD [address] [place] [address] Social History Tobacco Use Types Packs/Day Years [...] documented as of this encounter Care Teams Customer Service Engineer Relationship Specialty Start Date End Date Kirstin Winston MD [address] [place] [phone] PCP - General Internal Medicine 12/18/11 documented as of this encounter
== END 2025-01-20 15:23 | disposition home or self-care (01) ==
LOC: HO.ENCR 14:49
PROVIDERS: PCP Internal Medicine; Visit Provider Internal Medicine Endocrinology, Diabetes & Metabolism
DX: E29.1 Testicular hypofunction (principal)
CPT/HCPCS: 99213

== ENCOUNTER → 2025-01-20 14:48 | Outpatient (BNVA) | payer OTHER, SELFPAY | PROVIDERS: PCP Internal Medicine; Visit Provider Internal Medicine Endocrinology, Diabetes & Metabolism | DX: E29.1 Testicular hypofunction (principal); N52.9 Male erectile dysfunction, unspecified; R68.82 Decreased libido | CPT/HCPCS: 99212 ==

== ENCOUNTER 2025-02-16 13:15 | Outpatient (REF) | payer OTHER, SELFPAY | END 2025-02-16 13:16 | disposition home or self-care (01) | LOC: HO.LAB 13:15 | PROVIDERS: Absent Provider Internal Medicine Endocrinology, Diabetes & Metabolism; PCP Internal Medicine; Visit Provider Psychiatry & Neurology Neurology | DX: E29.1 Testicular hypofunction (principal); G11.9 Hereditary ataxia, unspecified; G96.9 Disorder of central nervous system, unspecified; R25.1 Tremor, unspecified | CPT/HCPCS: 36415; 88230; 88262; 99212 ==

== ENCOUNTER 2025-02-16 13:15 | Outpatient (AMB) | payer OTHER, SELFPAY ==
--- NOTE | 2025-02-16 13:28 | A.OFFVIS_ITS ---
Intake Visit Reasons: 3m Ataxia Allergies Penicillins Allergy (Unknown, Verified 01/20/25 14:58) Unknown HPI Comments Details: No change in the marked cerebellar ataxia of limbs. He started having trouble with his legs and stopped working as an electrician maintenance 2006.? He said that he had difficulty walking with pain and stiffness in his knees.? 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 He's had problems with alcohol abuse off and on.? He gradually progressed from using a cane for the last 10 years to a walker in the last 2 years with progressive gait disturbance.? He's had some changes in his speech.? In the last year or so, he has??had markedly worsening tremors that started in the left and then went to the right hand and is quite violent.? He needs to hold both hands together to feed himself.? He is unable to cook and do anything else.? He uses a walker at home and a wheelchair outside.? His mother had some tremors and was diagnosed with Parkinson's disease.? No other family history is known.? He's been on disability since the age of 41. 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 Difficulty getting to sleepadmits.? Difficulty maintaining sleepadmits.? Urge to move legsdenies.? Teeth grindingdenies.? Shouting or Kicking during sleep denies.? Abnormal behavior during sleepdenies.? Excessive sleepdenies.? Snoring denies.? Daytime sleepinessdenies. ???General/Constitutional:? Change in appetitedenies.? Chillsdenies.? Fatiguedenies.? Feverdenies.? Weight gaindenies.? Weight lossdenies. ???Ophthalmologic:? Blurred visiondenies.? Diminished visual acuitydenies. ???ENT:? Stuffinessdenies.? Decreased hearingdenies.? Dry mouthdenies.? Ear paindenies.? Nosebleeddenies.? Ringing in the earsadmits.? Sinus paindenies.? Sore throat denies.? Swollen glandsdenies. ???Endocrine:? Cold intolerancedenies.? Excessive thirstdenies.? Frequent urinationdenies.? Heat intolerancedenies. ???Respiratory:? Shortness of breathdenies.? Chest paindenies.? Coughdenies. ???Breast:? Breast lumpdenies.? Nipple dischargedenies. ???Cardiovascular:? Chest pain at restdenies.? Chest pain with exertiondenies.? Claudicationdenies .? Dizzinessdenies.? Fluid accumulation in the legsdenies.? Irregular heartbeat denies.? Palpitationsdenies. ???Gastrointestinal:? Abdominal paindenies.? Constipationadmits.? Diarrheadenies.? Difficulty swallowingdenies.? Heartburnadmits.? Nauseadenies.? Rectal bleedingdenies. ???Hematology:? Easy bruisingdenies.? Prolonged bleedingdenies. ???Genitourinary:? Frequent urinationadmits.? Urgencyadmits.? Incontinencedenies.? Erectile Dysfunctiondenies. ???Musculoskeletal:? Neck paindenies.? Back paindenies.? Muscle achesdenies.? Painful jointsdenies.? Sciaticadenies.? Weaknessdenies. ???Podiatric:? Difficulty walkingdenies.? Foot numbnessdenies. ???Neurologic:? Difficulty swallowingdenies.? Balance difficultyadmits.? Coordinationnormal.? Difficulty speakingadmits.? Dizzinessdenies.? Faintingdenies.? Gait abnormality admits.? Headachedenies.? Loss of strengthdenies.? Loss of use of extremity denies.? Low back paindenies.? Memory lossdenies.? Seizuresdenies.? Ticsdenies.? Tingling/Numbnessadmits.? Transient loss of visiondenies.? Tremorthat is severe. ???Psychiatric:? Anxietyadmits.? Auditory/visual hallucinationsdenies.? Delusionsagitation and aggression and distrust.? Depressed moodadmits.? Stressorsdenies.? Substance abusedenies.? Suicidal thoughtsdenies. Physical Exam Neuro Other: Neurological: Abnormal neurological findings:??coarse tremor of the hands due to 4 Hz moderate to high amplitude at rest markedly increased and holding the hands up with a very prominent large amplitude cerebellar tremor that gets worse on finger to nose test bilaterally.? He has to hold both hands together to get any semblance of direction with his hands.? He also has a truncal and head titubation tremor.? He stands up with full support with a broad-based gait and tends to fall over and can barely take one or 2 steps without losing his balance.? There is some mild breakdown in fluency of his speech with a slight cerebellar component..?Mental Status:??alert and oriented X 3,?Normal attention, orientation, memory and affect.?Cranial Nerves:??Pupils are equal, round and reactive to light. Fundoscopy shows normal disc bilaterally. External occular muscles are intact. Visual dyer are full, no ptosis. Face is symmetrical, no facial weakness or droop. Facial sensations are normal. Tongue protrudes in midline. Palate elevates symmetrically. Shoulder shrugging is normal..?Motor Examination:??Normal muscle tone, bulk and strength,?No atrophy or fasciculations,?No drift of the extended upper extremities,?Deep tendon reflexes are 2+?,?Plantars are flexor?.?Motor Strength:?Proximal Muscles (out of 5):5 Distal Muscles (out of 5):5Neck Flexors (out of 5):5Neck Extensors (out of 5):5 Deltoid (out of 5):5Biceps (out of 5):5Triceps (out of 5):5Serratus Anterior (out of 5):5Wrist Extensors (out of 5):5APB (out of 5):5Finger Spread (out of 5):5Ileopsoas (out of 5):5Quadriceps (out of 5):5Hamstrings (out of 5):5Tibialis Anterior (out of 5):5Peronei (out of 5):5EDB (out of 5):5Gastrocnemius (out of 5):5Straight Leg Raising:??90 degrees.?Sensory Exam:??Normal light touch, temperature, pinprick, vibration and joint-position sensations?,?Rhomberg sign is absent.?Coordination:??as above.?Gait Exam:??as above.?Cerebellar Signs:??marked cerebellar tremor.?Extrapyramidal System:??No tremor, rigidity with normal facial expressions,?No bradykinesia, no bradyphrenia. Normal arm swing and posture. No propulsion or retropulsion.?Speech:??Normal,?no dysphasia or dysarthria..? Mini Mental Status Exam: Level of Consciousness:??Alert.?Orientation:??Knows correct year, month, date, day and season,?Knows correct city, county and state. Knows correct location and floor.?Registration:??Able to register 3 objects.?Attention:??Serial 7's performed accurately.?Recall:??Able to recall 3 out of 3 objects.?Language:??Normal spontaneous speech, fluency, repetition,naming, comprehension, reading and writing.?Total Score:??30/30.? General Examination: GENERAL APPEARANCE:??normal,?in no acute distress.?HEAD:??normocephalic,?atraumatic.?EYES:??sclera non- icteric,?conjunctiva clear.?EARS:??auditory canal clear,?tympanic membrane intact, clear.?NOSE:??no lesions.?ORAL CAVITY:??gums normal,?mucosa moist,?no lesions.?THROAT:??clear.?NECK/THYROID:??no cervical lymphadenopathy,?thyroid normal,?neck supple, full range of motion,?no carotid bruit.?SKIN:??no rashes,?no significant birthmarks.?HEART:??S1, S2 normal,?no murmurs.?LUNGS:??clear anteriorly and posteriorly.?CHEST:??no gross rib deformity,?clear to auscultation.?BACK:??normal exam of spine.?EXTREMITIES:??no edema.?PERIPHERAL PULSES:??normal.?PSYCH:??alert, oriented,?cognitive function intact,?cooperative with exam.? Assessment & Plan Assessment & Plan (1) Cerebellar ataxia: Comment: 11/01/24 MRI Brain: Bilateral, patchy, punctate deep periventricular white matter hyperintense T2 FLAIR signal involving centrum semiovale and raman radiata., and deep periventricular white matter hyperintense T2 FLAIR signal. Hyperintense T2 FLAIR signal involving the quadrigeminal plate and the inferior cerebellar peduncles. 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 Check serum ceruloplasmin levels were ordered last visit. He says he had it done. No reports yet Coding Level of Care Code Est Pt Level 4 (16718) Diagnoses Cerebellar ataxia G11.9 Tremor due to disorder of central nervous system G96.9; R25.1
--- OUTSIDE RECORDS SUMMARY | 2025-02-16 16:01 | XMS_ITS | Encounter Summary ---
Author Organization [employer] Address [address] [facility] 7 [place] [address] Care Team Providers Care Acid Retort Operator Name Role Phone Kirstin Winston MD Primary Care Provider [phone] Reason for Visit * Reason Comments Med Refill Encounter Details Date Type Department Care Team ([facility] Contact Info) Description 02/14/2025 Refill [facility] MED & PEDS [address] [place], [place] [phone] Kirstin Winston MD [address] [place] [address] Essential hypertension; Tremor Social History Tobacco Use Types Packs/Day Years [...] documented as of this encounter Visit Diagnoses Diagnosis Essential hypertension Unspecified essential hypertension Tremor Abnormal involuntary movements documented in this encounter Additional Health Concerns Assessment Noted Time PHQ-9 Depression Total Score: 5 10/06/19 24 4:30 PM EDT documented as of this encounter Care Teams Acid Retort Operator Relationship Specialty Start Date End Date Kirstin Winston MD [address] [place] [phone] PCP - General Internal Medicine 12/18/11 documented as of this encounter
--- OUTSIDE RECORDS SUMMARY | 2025-02-16 16:01 | XMS_ITS | Encounter Summary ---
Author Organization [employer] Address [address] 7t [place] [address] Care Team Providers Care Vacuum Cleaner Repairer Name Role Phone Kirstin Winston MD Primary Care Provider [phone] Encounter Details Date Type Department Care Team (Late st Contact Info) Description 11/12/2022 Orders Only [facility] CHC MED & PEDS [address] [place], [place] [phone] Filomena Paulson LPN Social History Tobacco Use [...] EST) Sodium 140 135 - 145 mmol/L [facility] Potassium 3.6 3.3 - 5.1 mmol/L [facility] Chloride 105 96 - 108 mmol/L [facility] Carbon Dioxide 27 22 - 29 mmol/L [facility] Anion Gap 12 12 - 20 [facility] Urea Nitrogen (BUN) 18(H) 9 - 16 mg/dL [facility] Creatinine, Serum 0.94 0.5 - 1.4 mg/dL [facility] Estimated Glomerular Filt Rate >60 [facility] Comment:NOTE: For -Am erican individuals, multiply the result by 1.210.Chronic Kidney Disease: Estimated GFR < 60 mL/min/1.99u7Nnlawa Kidney Disease: Estimated GFR < 15 mL/min/1.73m2 Glucose Fasting 86 60 - 99 mg/dL [facility] Calcium 9.5 8.4 - 10.2 mg/dL [facility] 03/06/2023 10:0 9 AM EST 03/06/2023 2:16 PM EST us Kirstin Winston MD LAB BLOOD ORDERABLES Final Result [facility] [address] [place] [phone] * Hematoxylin and Eosin Stain (11/25/2022 12:29 PM EDT) 11/25/2022 12:2 9 PM EDT 11/25/2022 1:15 PM EDT William [facility] - 11/26/2022 12:50 PM EDT ----- ------- Name: John Lloyd Age/Sex: 57/M : 1965 Unit#: [id number] Attend Dr: Kain Krishna Re11/25/22 Status: [facility] Location: [facility] Disch: ----- ------- SPEC : [id number] RECD: 11/25/22 STATUS: EDWINA LEONARD NUM: [id number] ADRIANA: 11/25/[address] [facility] [address]: Kain Krishna ENTERED: 11/25/22 SP TYPE: [...] John Lloyd Age/Sex: 57/M : 1965 Unit#: [id number] Attend Dr: Kain Krishna Re11/25/22 Status: [facility] Location: [facility] Disch: ----- ------- SPEC : [id number] RECD: 11/25/22-1315 STATUS: EDWINA LEONARD NUM: [id number] ADRIANA: 11/25/22-[address] [facility] [address]: Kain Krishna ENTERED: 11/25/22-1323 SP TYPE: Surgical OTHR DR: Kirstin Winston MD ORDERED: ANDERSON Stain/9, Gross Micro L4/2 Copies To: Kirstin Winston MD [address] [place] [address] [address]ain Krishna [address] [place] [address] [address] [place] [address] ----- ------- Signed (signature on file) Gerri Eugene 11/26/22 1250 ----- ------- END OF REPORT [facility] External Provider LAB BLO OD ORDERABLES Final Result [facility] [address] [place] [phone] documented in this encounter Visit Diagnoses Not on filedocumented in this encounter Care Teams Vacuum Cleaner Repairer Relationship Specialty Start Date End Date Kirstin Winston MD [address] [place] [phone] PCP - General Internal Medicine 12/18/11 documented as of this encounter
--- OUTSIDE RECORDS SUMMARY | 2025-02-16 16:01 | XMS_ITS | Clinical Summary ---
Author Organization [employer] Address [address] [facility] 7t [place] [address] Care Team Providers Care Cash Posting Representative Name Role Phone Kirstin Winston MD Primary Care Provider [phone] Allergies Active Allergy Reactions Criticality Noted Date [...] Encounters Date Type Department Care Team Description 02/14/2025 Refill [facility] MED & PEDS [address] [place] [address] Kirstin Winston MD Essential hypertension; Tremor 01/19/2025 Results Follow-Up [facility] MED & PEDS [address] [place] [address] Kirstin Winston MD Hepatic Function Panel 01/18/2025 Orders Only GENERIC EXTERNAL DATA DEPARTMENT Provider, Generic External Data 01/17/2025 Telephone [facility] MEDICINE [address] [place] [address] Kirstin iWnston MD Results 01/13/2025 Telephone [facility] MEDICINE [address] [place] [address] Kirstin Winston MD Lab Orders 01/11/2025 Orders Only GENERIC EXTERNAL DATA DEPARTMENT Provider, Generic External Data 12/13/2024 Refill [facility] MED & PEDS [address] [place] [address] Kirstin Winston MD Essential hypertension 11/18/2024 3:15 PM EDT Telemedicine [facility] MED & PEDS [address] [place] [address] Kirstin Winston MD Essential hypertension (Primary Dx); Transaminitis; Tremor; Cerebellar ataxia (CMS/HCC) 11/18/2024 Travel from Last 3 Months Family History [...] 10/05/2024 10/06/2023, 10/06/2023 COVID-19 Vaccine (1 - 2024-2 6 season) 2024 Influenza Vaccine (#1) 2024 Pneumococcal [...] Procedure Name Priority Date/Time Associated Diagnosis Comments CERULOPLASMIN Routine 01/18/2025 2:39 PM EDT HEPATIC FUNCTION PANEL Routine 2:39 PM EDT Transaminitis TESTOSTERONE, FREE (DIALYSIS) AND TOTAL,MS Routine 01/11/2025 2:46 PM EDT PSA, TOTAL Routine 01/11/2025 2:46 PM EDT HEMATOCRIT Routine 01/11/2025 2:46 PM EDT HEMOGLOBIN Routine 01/11/2025 2:46 PM EDT LIPID PANEL, STANDARD Routine 07/29/2023 10:47 AM EDT Hypercholesterolem ia COLONOSCOPY Routine 11/25/2022 ZZZ HISTORICAL HEPATITIS C AB W/REFL TO HCV RNA, QN, PCR Routine 11/23/2021 10:55 AM EDT from Last 3 Months or Most Recently Relevant to Health Maintenance Results * Ceruloplasmin (01/18/2025 2:39 PM EDT) Ceruloplasmin 22 14 - 30 mg/dL [facility] Comment:THIS TEST WAS PERFOR MED AT:[facility] [place] [id number] CEE MD 01/18/2025 2:39 PM EDT 01/18/2025 4:09 PM EDT us Generic External Data Provider LAB BLOOD ORDERAB LES Final Result Performing Organization Address [facility] Co de Phone Number [facility] [address] [place] [phone] * Hepatic Function Panel (01/18/2025 2:39 PM EDT) Bilirubin, Total 0.7 0.0 - 1.0 mg/dL [facility] Bilirubin, Direct 0.2 0.0 - 0.5 mg/dL [facility] Aspartate Amino Transferase 23 5 - 37 U/L [facility] Alanine Aminotransferase 21 0 - 40 U/L [facility] Total Protein 7.0 6.5 - 8.0 g/dL [facility] Albumin Level 4.9 3.5 - 5.0 g/dL [facility] Alkaline Phosphatase 62 39 - 117 U/L [facility] Blood Venous blood specimen / Unknown 01/18/2025 2:39 PM EDT 01/18/2025 4:09 PM EDT us Kirstin Winston MD LAB BLOOD ORDERABLES Final Result Performing Organization Address [facility] Co de Phone Number [facility] [address] [place] [phone] * Hemoglobin (01/11/2025 2:46 PM EDT) Hemoglobin 14.1 14.0 - 18.0 g/dl [facility] 01/11/2025 2:46 PM EDT 01/11/2025 2:46 PM EDT Generic External Data Provider LAB BLOOD ORDERAB LES Final Result Performing Organization Address City/[facility]/ZIP Co de Phone Number [facility] [address] [place] [phone] * (ABNORMAL) Hematocrit (01/11/2025 2:46 PM EDT) Pathologist [facility] Hematocrit 40.9(L) 42.0 - 52.0 % [facility] 01/11/2025 2:46 PM EDT 01/11/2025 2:46 PM EDT Generic External Data Provider LAB BLOOD ORDERAB LES Final Result Performing Organization Address [facility] Co de Phone Number [facility] [address] [place] [address] [phone] * Testosterone, Free (Dialysis) And Total, MS (01/11/2025 2:46 PM EDT) Pathologist [facility] Testosterone, Total 745 250 - 1100 ng/dL [facility] Comment:For additional infor karis, please refer tohttp://education.Telerik.EnteGreat/faq/PzwtcNdvhrohouuoxZSCXQOQIU004(This link is being provided for informational/educational purposes only.)This test was developed and its analytical performancecharacteristics have been determined by [employer] [place], [place]. It hasnot been cleared or approved by the U.S. Food and DrugAdministration. This assay has been validated pursuantto the CLIA regulations and is used for clinicalpurposes. Testosterone, Free 122.2 35.0 - 155.0 pg/mL [facility] Comment:This test was develo ped and its analytical performancecharacteristics have been determined by [employer] [place], [place]. It hasnot been cleared or approved by the U.S. Food and DrugAdministration. This assay has been validated pursuantto the CLIA regulations and is used for clinicalpurposes.THIS TEST WAS PERFORMED AT:[facility] [facility] [place] [phone] VOGT MD,PHD 01/11/2025 2:46 PM EDT 01/11/2025 2:46 PM EDT Generic External Data Provider LAB BLOOD ORDERAB LES Final Result Performing Organization Address City/[facility]/ZIP Co de Phone Number [facility] [address] [place] [phone] * PSA,Total (01/11/2025 2:46 PM EDT) Prostate Specific Antigen 1.45 <0.05 - 4.0 ng/mL [facility] Comment:PSA methodology: Fabiola Hernandez i ChemiluminescentMicroparticle Immunoassay (CMIA) 01/11/2025 2:46 PM EDT 01/11/2025 2:46 PM EDT Generic External Data Provider LAB BLOOD ORDERAB LES Final Result Performing Organization Address City/[facility]/ZIP Co de Phone Number [facility] [address] [place] [phone] * Lipid Panel, Standard (07/29/2023 10:47 AM EDT) Triglycerides 60 <150 mg/dL [facility] Comment:Desirable Triglyceri de: less than 150 mg/dLBorderline High Triglyceride 150-199 mg/dLHigh Triglyceride: 200-499 mg/dLVery High Triglyceride: greater than or equal to 5OO mg/dL Cholesterol 154 <200 mg/dL [facility] Comment:Desirable Cholestero l: less than 200 mg/dLBorderline High Cholesterol: 200-239 mg/dLHigh Cholesterol: greater than 239 mg/dL LDL Cholesterol Calculated 84 <100 mg/dL [facility] Comment:Desirable LDL: less than 100 mg/dLNear Optimal/Above Optimal LDL: 110- 129 mg/dLBorderline High LDL: 130-159 mg/dLHigh LDL: 160-189 mg/dLVery High LDL: greater than or equal to 190 mg/dL HDL Cholesterol 58 >40 mg/dL [facility] Comment:Desirable HDL: great er than 40 mg/dL Note: This HDL assay may give artificially low results in patients with liver disease. Blood Venous blood specimen / Unknown 07/29/2023 10:47 AM EDT 07/29/2023 2:17 PM EDT us Kirstin Winston MD LAB BLOOD ORDERABLES Final Result Performing Organization Address [facility] de Phone Number [facility] [address] [place] [phone] * HEPATITIS C AB W/REFL TO HCV RNA, QN, PCR (11/23/2021 10:55 AM EDT) HEPATITIS C ANTIBODY NON-REACT ANGELITA NON-REACT ANGELITA [facility] INDEX 0.10 <1.00 [facility] Comment: HCV antibody was non-reactive. There is no laboratory evidence of HCV infection. In most cases, no further action is required. However, if recent HCV exposure is suspected, a test for HCV RNA (test code 21163) is suggested. For additional information please refer to http://education.Telerik.EnteGreat/faq/YXZ92r1 (This link is being provided for informational/ educational purposes only.) 11/23/2021 10:5 5 AM EDT us Kirstin Winston MD HISTORICAL/NON ORDERABLE LA BS Final Result Performing Organization Address City/[facility]/ZIP Co de Phone Number [facility] [address] [place], [place] [address] from Last 3 Months or Most Recently Relevant to Health Maintenance Insurance [facility] ONE CARE < 65 JOSLYN GARNER [id number] * Guarantor: John Lloyd Account Type Relation to Patient Date of Phone Billing Address Personal/Family Self [address] [phone] Care Teams Cash Posting Representative Relationship Specialty Start Date End Date Kirstin Winston MD [address] [place] [phone] PCP - General Internal Medicine 12/18/11
--- OUTSIDE RECORDS SUMMARY | 2025-02-16 16:02 | XMS_ITS | Encounter Summary ---
Author Organization [employer] Address [address] [facility] 7 [place] [address] Care Team Providers Care Mechanical Maintenance Worker Name Role Phone Kirstin Winston MD Primary Care Provider [phone] Reason for Visit * Reason Onset Date Comments Results 01/17/2025 Encounter Details Date Type Department Care Team ([facility] st Contact Info) Description 01/17/2025 Telephone [facility] MEDICINE [address] [place] [address] Kirstin Winston MD [address] [place] [address] Results Social History Tobacco Use Types Packs/Day [...] results: Labs Date when done: 01/11/25 Facility: [facility] Labs Please contact pt at [phone]. documented in this encounter Plan of Treatment Not on file documented as of this encounter Visit Diagnoses Not on filedocumented in this encounter Additional Health Concerns Assessment Noted Time PHQ-9 Depression Total Score: 5 10/06/19 24 4:30 PM EDT documented as of this encounter Care Teams Mechanical Maintenance Worker Relationship Specialty Start Date End Date Kirstin Winston MD [address] [place] [phone] PCP - General Internal Medicine 12/18/11 documented as of this encounter
--- OUTSIDE RECORDS SUMMARY | 2025-02-16 16:02 | XMS_ITS | Encounter Summary ---
Author Organization [employer] Address [address] [facility] 7t [place] [address] Care Team Providers Care File Drawer Finisher Name Role Phone Kirstin Winston MD Primary Care Provider [phone] Encounter Details Date Type Department Care Team (Late st Contact Info) Description 03/07/2023 Orders Only [facility] CHC MED & PEDS [address] [place], [place] [phone] Kirstin Winston MD [address] [place] [address] Social History Tobacco Use Types Packs/Day Years [...] documented as of this encounter Care Teams File Drawer Finisher Relationship Specialty Start Date End Date Kirstin Winston MD [address] [place] [phone] PCP - General Internal Medicine 12/18/11 documented as of this encounter
--- OUTSIDE RECORDS SUMMARY | 2025-02-16 16:02 | XMS_ITS | Patient Health Record ---
Author Organization [facility] Address [address] [place] [address] Care Team Providers Care Prenatal Genetic Counselor Name Role Phone Kirstin Winston M.D. Primary Care Provider Un available Krishna Kain Unavailable [phone] Allergies Allergen (clinical drug ingredient) Drug/Non Drug [...] Status Risk Notes Problem Colon cancer screening (162409911) Colon cancer screening (Z12.11) Active confirmed Problem Blood in stool (143135208) Blood in stool (K92.1) Active confirmed Problem Pre-procedure evaluation check (035592543) Pre-procedural examination (Z01.818) Active confirmed Problem Diverticulosis of colon (614154828) Diverticulosis of colon (K57.30) Active confirmed Plan Of Treatment Future Test Test Name Order Date COLONOSCOPY 09/10/2022 Insurance Providers Payer Name Payer Address Payer Phone Subscriber Number Group Number Insured Name Patient Relationship to Insured Coverage Start Date Coverage End Date MEDICARE OF [place] [address] [place] [address] [id number] SHEILA ATKINS Self - patient is the insured MEDICAID OF [facility] [address] [place] [address] [id number] SHEILA ATKINS Self - patient is the insured Medical (General) History Medical History History ICD Code Hypertension Hyperlipidemia Denies SD,DM,CVA,Lung disease,renal dise ase 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 Macular degeneration Surgical History Surgery Date(Month/Year) Tonsils
--- OUTSIDE RECORDS SUMMARY | 2025-02-16 16:02 | XMS_ITS | Encounter Summary ---
Author Organization [employer] Address [address] [place] [address] Care Team Providers Care Siebel Architect Name Role Phone Kirstin Winston MD Primary Care Provider [phone] Encounter Details Date Type Department Care Team (Late st Contact Info) Description 09/13/2024 Orders Only [facility] [address] [place], [place] [phone] Kirstin Winston MD [address] [place] [address] Other male erectile dysfunction (Primary Dx) Social [...] Testosterone, Total 324 250 - 1100 ng/dL [facility] Comment:For additional infor mation, please refer [email or web address](This link is being provided for informational/educational purposes only.)This test was developed and its analytical performancecharacteristics have been determined by [employer] [place]. It hasnot been cleared or approved by the U.S. Food and DrugAdministration. This assay has been validated pursuantto the CLIA regulations and is used for clinicalpurposes. Testosterone, Free 39.9 35.0 - 155.0 pg/mL [facility] Comment:This test was develo ped and its analytical performancecharacteristics have been determined by [employer], [place]. It hasnot been cleared or approved by the U.S. Food and DrugAdministration. This assay has been validated pursuantto the CLIA regulations and is used for clinicalpurposes.THIS TEST WAS PERFORMED AT:[employer] [id number] [place] [id number] VOGT MD,PHD Blood Venous blood specimen / Unknown 09/28/2024 1:57 PM EDT 09/28/2024 4:10 PM EDT us Kirstin Winston MD LAB BLOOD ORDERABLES Final Result [facility] [address] [place] [phone] documented in this encounter Visit Diagnoses Diagnosis Other male erectile dysfunction- Primary documented in this encounter Additional Health Concerns Assessment Noted Time PHQ-9 Depression Total Score: 5 10/06/19 24 4:30 PM EDT documented as of this encounter Care Teams Siebel Architect Relationship Specialty Start Date End Date Kirstin Winston MD [address] [place] [id number] PCP - General Internal Medicine 12/18/11 documented as of this encounter
--- OUTSIDE RECORDS SUMMARY | 2025-02-16 16:02 | XMS_ITS | Encounter Summary ---
Author Organization [employer] Address [address] [place] [address] Care Team Providers Care [employer] Factory Worker Name Role Phone Kirstin Winston MD Primary Care Provider [phone] Encounter Details Date Type Department Care Team ([facility] st Contact Info) Description 01/19/2025 Results Follow-Up [facility] [address] [place], [place] [phone] Kirstin Winston MD [address] [place] [address] Hepatic Function Panel Social History Tobacco Use [...] documented as of this encounter Care Teams [employer] Worker Relationship Specialty Start Date End Date Kirstin Winston MD [address] [place] [id number] PCP - General Internal Medicine 12/18/11 documented as of this encounter
== END 2025-02-16 13:49 | disposition home or self-care (01) ==
LOC: HO.HSM 13:16
PROVIDERS: PCP Internal Medicine; Visit Provider Psychiatry & Neurology Neurology
DX: G11.9 Hereditary ataxia, unspecified (principal); G96.9 Disorder of central nervous system, unspecified; R25.1 Tremor, unspecified
CPT/HCPCS: 99214